=== PATIENT | male | born 1950 | race Caucasian/White ===

== ENCOUNTER 2017-03-05 00:14 | Inpatient (IN) | payer MEDICARE, OTHER ==
[2017-03-05] VITALS (16 sets, daily range): BP systolic 80–125; BP diastolic 41–74; PULSE 78–102; RESP 16–18; TEMP 96.2–99.7; O2SAT 94–100
[~2017-03-05] VITALS: Ht 185.4 cm; Wt 59.4 kg
[~2017-03-05 00:14] MED LIST: ABIL2TAB2 PO; BUPR150CR PO; FE FCAP; NAME10TA PO; OMEP20CA2; TRAZ50TA12 PO; VENL150C39 PO; [UNRECOGNIZED DRUG - CODE] PO
[2017-03-05] MEDS ORDERED: LOPE2CAP PO (01:34)
[2017-03-05] MEDS ORDERED: SODIUM CHLOR 0.9% 1000 ML INJ 1,000 ML IV ONE (02:00)
[2017-03-05] MEDS ORDERED: SODIUM CHLORIDE 0.9% FLUSH 10 ML FLUSH IVF PRN ×2 (02:00→04:45)
[2017-03-05 02:23] LABS: AUTOMATED NEUTROPHIL # 7.8 TH/MM3 (1.8-7.7); BASOPHIL % 0.2 % (0.0-2.0); HEMATOCRIT 36.5 % (39.0-51.0); HEMO FLAGS DIFF FINAL; LYMPH % 9.8 % (9.0-44.0); MEAN CELL VOLUME 89.8 FL (80.0-100.0); MEAN CORPUSCULAR HEMOGLOBIN 29.7 PG (27.0-34.0); MEAN CORPUSCULAR HGB CONC 33.1 % (32.0-36.0); MONO % 10.8 % (0.0-8.0); NEUT % 79.2 % (16.0-70.0); PLATELET COUNT 165 TH/MM3 (150-450); RED BLOOD COUNT 4.07 MIL/MM3 (4.50-5.90); RED CELL DISTRIBUTION WIDTH 13.3 % (11.6-17.2); WHITE BLOOD COUNT 9.9 TH/MM3 (4.0-11.0)
[2017-03-05 02:30] LABS: CHLORIDE 99 MEQ/L (98-107); SODIUM (NA) 138 MEQ/L (136-145)
[2017-03-05 02:34] LABS: ANION GAP 16 MEQ/L (5-15); APTT (PATIENT) 26.9 SEC (24.3-30.1); BICARBONATE 23.5 MEQ/L (21.0-32.0); BLOOD UREA NITROGEN 55 MG/DL (7-18); INTERNATIONAL NORMALIZED RATIO 1.3 RATIO
[2017-03-05 02:37] LABS: ALT (GPT) 82 U/L (12-78); AST (GOT) 128 U/L (15-37); GLOMERULAR FILTRATION RATE 17 ML/MIN (>89)
[2017-03-05 02:38] LABS: TOTAL BILIRUBIN ADULT 0.3 MG/DL (0.2-1.0)
[2017-03-05 02:40] LABS: ALKALINE PHOSPHATASE 114 U/L (45-117)
--- NOTE | 2017-03-05 02:52 | RADHPO ---
EXAM DATE/TIME: 03/05/2017 02:32 [facility] COMPARISON: No previous studies available for comparison. INDICATIONS : Fall. Left hip pain. MEDICAL HISTORY : None. SURGICAL HISTORY : None. ENCOUNTER: Initial ACUITY: 1 day PAIN SCORE: 9/10 LOCATION: Left lateral FINDINGS: There is an intertrochanteric femoral neck fracture. There is a separate fracture fragment at the les ser trochanter. The femoral head is normally positioned at the acetabulum. CONCLUSION: Intertrochanteric left femoral neck fracture. Lexx Baeza MD on March 05, 2017 at 2:49 Board Certified Radiologist. This report was verified electronically.
--- NOTE | 2017-03-05 02:53 | RADHPO ---
EXAM DATE/TIME: 03/05/2017 02:27 [facility] COMPARISON: FEMUR LEFT (AP & LAT/2VWS), March 05, 2017, 2:32. INDICATIONS : Fall. Left hip pain. MEDICAL HISTORY : None. SURGICAL HISTORY : None. ENCOUNTER: Initial ACUITY: 1 day PAIN SCORE: 9/10 LOCATION: Right pelvis FINDINGS: There is a left intertrochanteric femoral neck fracture. There is fracture through the superior aspec t of the greater trochanter and at the base of the lesser trochanter. The femoral head is normally po sitioned at the acetabulum. No other fracture is seen. Vascular calcifications are present. CONCLUSION: Left intertrochanteric femoral neck fracture. Lexx Baeza MD on March 05, 2017 at 2:50 Board Certified Radiologist. This report was verified electronically.
--- NOTE | 2017-03-05 02:55 | RADHPO ---
EXAM DATE/TIME: 03/05/2017 02:31 [facility] COMPARISON: SPINE THORACIC AP/LAT/SW (3VW), March 31, 2015, 20:41. INDICATIONS : Fall. MEDICAL HISTORY : None. SURGICAL HISTORY : None. ENCOUNTER: Initial ACUITY: 1 day PAIN SCORE: 6/10 LOCATION: Bilateral chest FINDINGS: The heart size is normal. There is increased density at the medial right chest and over the medial hi lar region. [place] are seen in this region. This configuration is unchanged for prior thoracic spine series from 03/31/2015. There is increased density in the retrocardiac area at the medial left base. T he lungs are otherwise clear. No effusion is seen. CONCLUSION: 1. Postoperative changes in the right chest which appear stable. 2. Increased density in the medial left base representing either a consolidation or potentially a hia gatito hernia. There are some air lucency in this. Lexx Baeza MD on March 05, 2017 at 2:51 Board Certified Radiologist. This report was verified electronically.
[2017-03-05] MEDS ORDERED: SODIUM CHLORID 0.9% 500 ML INJ 500 ML IV ONE (03:15)
--- NOTE | 2017-03-05 03:25 | RADHPO ---
EXAM DATE/TIME: 03/05/2017 02:56 [facility] COMPARISON: CT BRAIN W/O CONTRAST, March 31, 2015, 21:08. INDICATIONS : Trauma. Fall. RADIATION DOSE: 64.44 CTDIvol (mGy) MEDICAL HISTORY : Carcinoma, esophageal. Carcinoma, gastric. SURGICAL HISTORY : Partial gastrectomy ENCOUNTER: Initial ACUITY: 1 day PAIN SCALE: 0/10 LOCATION: cranial TECHNIQUE: Multiple contiguous axial images were obtained of the head. Using automated exposure control and adj ustment of the mA and/or kV according to patient size, radiation dose was kept as low as reasonably a chievable to obtain optimal diagnostic quality images. FINDINGS: CEREBRUM: The ventricles are normal for age. No evidence of midline shift, mass lesion, hemorrhage or acute in farction. No extra-axial fluid collections are seen. POSTERIOR FOSSA: The cerebellum and brainstem are intact. The 4th ventricle is midline. The cerebellopontine angle i s unremarkable. EXTRACRANIAL: The visualized portion of the orbits is intact. There is opacification of the right maxillary sinus w ith expansion into the nasal cavity likely representing a mucocele or polyposis. This was present pre viously. There is right frontal and right ethmoid sinus disease. SKULL: The calvaria is intact. No evidence of skull fracture. CONCLUSION: 1. No intracranial abnormality is seen. 2. Right sinus disease. Lexx Baeza MD on March 05, 2017 at 3:21 Board Certified Radiologist. This report was verified electronically.
[2017-03-05 03:29] LABS: MAGNESIUM 2.5 MG/DL (1.5-2.5)
--- NOTE | 2017-03-05 03:34 | RADHPO ---
EXAM DATE/TIME: 03/05/2017 02:56 [facility] COMPARISON: CT CERVICAL SPINE W/O CONTRAST, March 31, 2015, 21:08. INDICATIONS : Trauma. Fall. RADIATION DOSE: 26.43 CTDIvol (mGy) MEDICAL HISTORY : Carcinoma, esophageal. Carcinoma, gastric. SURGICAL HISTORY : Partial gastrectomy ENCOUNTER: Initial ACUITY: 1 day PAIN SCALE: 0/10 LOCATION: neck TECHNIQUE: Volumetric scanning of the cervical spine was performed. Multiplanar reconstructions in the sagittal, coronal and oblique axial planes were performed. Using automated exposure control and adjustment o f the mA and/or kV according to patient size, radiation dose was kept as low as reasonably achievable to obtain optimal diagnostic quality images. FINDINGS: VERTEBRAE: Normal vertebral body height. ALIGNMENT: No evidence of subluxation. C2-C3: The bony spinal canal is normal in size. No evidence of disc bulge or herniation. The neural forami na are bilaterally patent. C3-C4: The bony spinal canal is normal in size. No evidence of disc bulge or herniation. The neural forami na are bilaterally patent. There is uncovertebral hypertrophy and mild right facet hypertrophy. C4-C5: The bony spinal canal is normal in size. No evidence of disc bulge or herniation. There is bilateral uncovertebral hypertrophy causing some narrowing of the neural foramina. C5-C6: There is minimal bulging and posterior osteophytic ridging causing mild impression on the thecal sac. The neural foramina are bilaterally patent. There is uncovertebral hypertrophy. C6-C7: The bony spinal canal is normal in size. No evidence of disc bulge or herniation. The neural forami na are bilaterally patent. C7-T1: The bony spinal canal is normal in size. No evidence of disc bulge or herniation. The neural forami na are bilaterally patent. CONCLUSION: Scattered degenerative change as described above. An acute bony abnormality is not seen. Lexx Baeza MD on March 05, 2017 at 3:24 Board Certified Radiologist. This report was verified electronically.
--- NOTE | 2017-03-05 03:55 | RADHPO ---
EXAM DATE/TIME: 03/05/2017 03:28 [facility] COMPARISON: CHEST SINGLE AP, March 05, 2017, 2:31. INDICATIONS : Trauma. Fall. ORAL CONTRAST: No oral contrast ingested. RADIATION DOSE: 6.68 CTDIvol (mGy) MEDICAL HISTORY : Carcinoma, esophageal. Carcinoma, gastric. SURGICAL HISTORY : Partial gastrectomy ENCOUNTER: Initial ACUITY: 1 day PAIN SCALE: 10/10 LOCATION: Left hip TECHNIQUE: Volumetric scanning of the abdomen and pelvis was performed. Using automated exposure control and ad justment of the mA and/or kV according to patient size, radiation dose was kept as low as reasonably achievable to obtain optimal diagnostic quality images. FINDINGS: LOWER LUNGS: The patient is status post distal esophagectomy and gastrectomy. Small bowel seen in the posterior ri ght chest and at the left base accounting for the density seen on the chest x-ray. There is mild scar ring or linear atelectasis seen at the posterior medial left lung base. LIVER: Homogeneous density without lesion. There is no dilation of the biliary tree. The patient is status post cholecystectomy. SPLEEN: Normal size without lesion. PANCREAS: Within normal limits. KIDNEYS: Normal in size and shape. There is no stone, or hydronephrosis. There is a 0.6 cm hyperdense mass at the posterior lateral mid left kidney likely representing a hemorrhagic or proteinaceous cyst. ADRENAL GLANDS: Within normal limits. VASCULAR: There is no aortic aneurysm. Vascular calcifications are seen throughout the arterial system. BOWEL/MESENTERY: The patient is status post gastrectomy. There's a moderate amount of stool seen throughout the colon. ABDOMINAL WALL: Within normal limits. RETROPERITONEUM: There is no lymphadenopathy. BLADDER: No wall thickening or mass. REPRODUCTIVE: Within normal limits. INGUINAL: There is no lymphadenopathy or hernia. MUSCULOSKELETAL: There is a left intertrochanteric femoral neck fracture. There is hemorrhage seen in the soft tissues of the upper thigh around the fracture. CONCLUSION: 1. Left intertrochanteric femoral neck fracture. 2. Post operative changed from distal esophagectomy and gastrectomy. Lexx Baeza MD on March 05, 2017 at 3:48 Board Certified Radiologist. This report was verified electronically.
--- NOTE | 2017-03-05 04:23 | PD ---
HPI Chief Complaint: Fall Time Seen by Provider: 01:54 Travel History International Travel<30 days: No Contact w/Intl Traveler<30days: No Traveled to known affect area: No History of Present Illness HPI 67-year-old male presents to the emergency department by nonemergent transport from his correction with a correction staff member for evaluation of hip pain. Patient reportedly around 10 PM was requesting a wheelchair and reportedly there was not a wheelchair available and the patient was reportedly witnessed to have an acting out spell throwing himself on the floor. This was reportedly was a witnessed event. Patient complained of hip pain afterwards. Due to his persistent complaint of pain was determined to bring him to the emergency room. Patient did hit his head, he did not have loss of consciousness, he did not injure his neck, he did not injure his back chest abdomen or upper extremities. Patient did not injure his right lower extremity. Patient complains of hip pain. After the patient fell onto the floor. The correction staff members put him into a wheelchair at that time. Patient had a bowel movement so they took him to the shower and while he was at the shower he had a witnessed syncopal episode on the floor without injury. Patient spontaneously regained consciousness reportedly. Patient was base and then put back in a wheelchair. Because of hip pain was brought to the emergency room. Patient's had no further syncope or near syncope however noted upon arrival to have low normal pressure and on recheck was hypotensive. PFSH Past Medical History Narrative Medical Anxiety depression esophageal cancer with partial esophagectomy gastrectomy dementia (; no tobacco use no alcohol use no substance use; nursing notes reviewed Anxiety: Yes Depression: Yes Cancer: Yes (esophageal and gastric) Dementia: Yes Tetanus Vaccination: < 5 Years Influenza Vaccination: Yes Past Surgical History Abdominal Surgery: Yes Other Surgery: Yes (partial gastrectomy) Social History Alcohol Use: No Tobacco Use: No Substance Use: No Allergies-Medications (Allergen,Severity, Reaction): Coded Allergies: Compazine (Unverified Allergy, Unknown, 03/05/17) Penicillin (Unverified Allergy, Unknown, 03/05/17) Sulfa (Unverified Allergy, Unknown, 03/05/17) Reported Meds & Prescriptions Reported Meds & Active Scripts Active Abilify (Aripiprazole) 2 Mg Tab 2 Mg PO DAILY@0600 Wellbutrin SR 12 HR (Bupropion HCl) 150 Mg Tab 150 Mg PO 1QAM,1Q4PM Trazodone (Trazodone HCl) 50 Mg Tab 50 Mg PO HS Namenda (Memantine) 10 Mg Tab 10 Mg PO BID Venlafaxine ER 24 HR (Venlafaxine HCl) 150 Mg Cap 150 Mg PO HS Reported Loperamide (Loperamide HCl) 2 Mg Cap 2 Mg PO DIRECTED PRN One capsule after each loose stool. Not to exceed 8 capsules per day. Integra (Multi-Vit/Iron-B Comp-Vit C) Unknown Strength Cap Unknown Dose Review of Systems Except as stated in HPI: all other systems reviewed are Neg General / Constitutional: No: Fever HENT: No: Congestion, Neck Pain Cardiovascular: No: Chest Pain or Discomfort Respiratory: No: Shortness of Breath Gastrointestinal: No: Abdominal Pain Genitourinary: No: Flank Pain Musculoskeletal: Positive: Pain (hip) Skin: Positive Rash (chronic) Neurologic: Positive: Syncope, No: Weakness, Dizziness, Focal Abnormalities, Coordination Problem, Headache, Change in Mentation, Slurred Speech, Paresthesia , Seizures Psychiatric: No: Anxiety Endocrine: No: Heat Intolerance Hematologic/Lymphatic: No: Easy Bruising Physical Exam Narrative GENERAL: Well-developed thin disheveled male in no acute distress no respiratory distress; GCS 14 ('normal' baseline per caregiver-Chrales Cano- at bedside) thinking. SKIN: Warm and dry. HEAD: Atraumatic. Normocephalic except for posterior scalp abrasion no laceration no soft tissue swelling no bony abnormalities. EYES: Pupils equal and round. No scleral icterus. No injection or drainage. ENT: No nasal bleeding or discharge. Mucous membranes pink and moist. NECK: Trachea midline. No JVD. No midline tenderness to direct palpation no bony step-off. CARDIOVASCULAR: Regular rate and rhythm. RESPIRATORY: No accessory muscle use. Clear to auscultation. Breath sounds equal bilaterally. GASTROINTESTINAL: Abdomen soft, non-tender, nondistended. Hepatic and splenic margins not palpable. MUSCULOSKELETAL: Extremities without clubbing, cyanosis, or edema. Left lower extremity shortened and internally rotated with left hip deformity; bilateral dorsalis pedis pulses 2+ to palpation. NEUROLOGICAL: Awake and alert. No obvious cranial nerve deficits. Motor grossly within normal limits. Five out of 5 muscle strength in the arms and legs. Normal speech. Data Data Last Documented VS Vital Signs Date Time Temp Pulse Resp B/P Pulse Ox O2 Delivery O2 Flow Rate FiO2 03/05/17 04:25 80 18 118/74 99 Room Air 03/05/17 01:40 99.3 Orders Electrocardiogram (03/05/17 01:54) Complete Blood Count With Diff (03/05/17 01:54) Comprehensive Metabolic Panel (03/05/17 01:54) Prothrombin Time / Inr (Pt) (03/05/17 01:54) Act Partial Throm Time (Ptt) (03/05/17 01:54) Urinalysis - C+S If Indicated (03/05/17 01:54) Type And Screen (03/05/17 01:54) Chest, Single Ap (03/05/17 01:54) Femur (Ap & Lat/2vws) (03/05/17 01:54) Iv Access Insert/Monitor (03/05/17 01:54) Oximetry (03/05/17 01:54) Ecg Monitoring (03/05/17 01:54) Sodium Chloride 0.9% Flush (Ns Flush) (03/05/17 02:00) Sodium Chlor 0.9% 1000 Ml Inj (Ns 1000 M (03/05/17 02:00) Ct Brain W/O Iv Contrast(Rout) (03/05/17 ) Ct Cerv Spine W/O Contrast (03/05/17 ) Pelvis, Ap Only (Routine) (03/05/17 01:54) Sodium Chlorid 0.9% 500 Ml Inj (Ns 500 M (03/05/17 03:15) Lactic Acid (03/05/17 03:12) Ct Abd/Pel W/O Iv Contrast (03/05/17 ) Magnesium (Mg) (03/05/17 02:00) Admit Order (Ed Use Only) (03/05/17 ) ^ Saline Lock (03/05/17 04:37) Resp Oxygen Rayray C Titrat 1-4 L (03/05/17 ) Notify Dr: Other (03/05/17 04:37) Sodium Chloride 0.9% Flush (Ns Flush) (03/05/17 09:00) Sodium Chloride 0.9% Flush (Ns Flush) (03/05/17 04:45) Consult Orthopedic (03/05/17 04:37) Labs Laboratory Tests Test 03/05/17 03/05/17 02:00 04:15 White Blood Count 9.9 TH/MM3 Red Blood Count 4.07 MIL/MM3 Hemoglobin 12.1 GM/DL Hematocrit 36.5 % Mean Corpuscular Volume 89.8 FL Mean Corpuscular Hemoglobin 29.7 PG Mean Corpuscular Hemoglobin 33.1 % Concent Red Cell Distribution Width 13.3 % Platelet Count 165 TH/MM3 Mean Platelet Volume 7.8 FL Neutrophils (%) (Auto) 79.2 % Lymphocytes (%) (Auto) 9.8 % Monocytes (%) (Auto) 10.8 % Eosinophils (%) (Auto) 0.0 % Basophils (%) (Auto) 0.2 % Neutrophils # (Auto) 7.8 TH/MM3 Lymphocytes # (Auto) 1.0 TH/MM3 Monocytes # (Auto) 1.1 TH/MM3 Eosinophils # (Auto) 0.0 TH/MM3 Basophils # (Auto) 0.0 TH/MM3 CBC Comment DIFF FINAL Differential Comment Prothrombin Time 15.0 SEC Prothromb Time International 1.3 RATIO Ratio Activated Partial 26.9 SEC Thromboplast Time Sodium Level 138 MEQ/L Potassium Level 5.0 MEQ/L Chloride Level 99 MEQ/L Carbon Dioxide Level 23.5 MEQ/L Anion Gap 16 MEQ/L Blood Urea Nitrogen 55 MG/DL Creatinine 3.70 MG/DL Estimat Glomerular Filtration 17 ML/MIN Rate Random Glucose 147 MG/DL Calcium Level 8.6 MG/DL Magnesium Level 2.5 MG/DL Total Bilirubin 0.3 MG/DL Aspartate Amino Transf 128 U/L (AST/SGOT) Alanine Aminotransferase 82 U/L (ALT/SGPT) Alkaline Phosphatase 114 U/L Total Protein 7.6 GM/DL Albumin 3.3 GM/DL Blood Type O POSITIVE Antibody Screen NEGATIVE Blood Bank Comment Lactic Acid Level 1.5 mmol/L MDM Medical Decision Making Medical Screen Exam Complete: Yes Emergency Medical Condition: Yes Medical Record Reviewed: Yes Interpretation(s) CBC & BMP Diagram 03/05/17 02:00 EKG normal sinus rhythm rate [address] elevation or injury pattern change noted Differential Diagnosis Hip pain, hip fracture, dislocation, anemia, pelvic fracture, syncope, arrhythmia, ICH, CHI, abrasion Narrative Course Patient placed on monitor IV access obtained specimens were collected; patient was noted to be hypotensive therefore IV fluids administered; imaging studies ordered CT brain noncontrast reveals no acute intra-cranial abnormality no skull fracture or cervical spine shows chronic changes but no fracture chest x-ray there was evidence of previous esophageal and gastric surgery but no acute abnormalities pelvis and left hip x-ray reveals an intertrochanteric fracture of the left hip. CT abdomen and pelvis performed without contrast due to renal function reveals no acute intra-abdominal or pelvic abnormality again intertrochanteric fracture is identified and local area of hemorrhage also noted. Patient's case discussed with on-call orthopedist Dr. Saini requests patient to be transferred to [facility] admitted to have his group: Patient's case discussed with Dr. Lara accepted patient for admission Physician Communication Physician Communication Discussed with Dr Saini admit to [facility] service Diagnosis Primary Impression: Closed intertrochanteric fracture of hip Qualified Code: S72.142A - Closed intertrochanteric fracture of hip, left, initial encounter Additional Impressions: Renal insufficiency Dementia Qualified Code: F03.91 - Dementia with behavioral disturbance, unspecified dementia type Admitting Information Admitting Physician Requests: Admit Shruthi Valdes MD Mar 05, 2017 04:22
[2017-03-05] MEDS ORDERED: SODIUM CHLOR 0.9% 1000 ML INJ 1,000 ML IV SCH (04:37)
[2017-03-05] MEDS ORDERED: BISACODYL 10 MG SUPP RECTAL PRN (04:45)
[2017-03-05] MEDS ORDERED: ACETAMINOPHEN/HYDROcodone 325 MG/5 MG TAB PO PRN (04:45)
[2017-03-05] MEDS ORDERED: MORPHINE SULFATE 4 MG/ML INJ IV PRN (04:45)
[2017-03-05] MEDS ORDERED: ONDANSETRON HCL 4 MG/2 ML VIAL IVP PRN ×2 (04:45→11:15)
[2017-03-05] MEDS ORDERED: ACETAMINOPHEN 325 MG TAB PO PRN (04:45)
[2017-03-05] MEDS ORDERED: SODIUM CHLORIDE 0.9% FLUSH 10 ML FLUSH IV FLUSH PRN ×2 (04:45→11:15)
[2017-03-05 05:03] LABS: BLOOD, URINE LARGE (NEG); GLUCOSE,URINE NEG (NEG); KETONE, URINE NEG (NEG); NITRITE,URINE NEG (NEG); PH, URINE 5.5 (5.0-8.5)
[2017-03-05 05:09] LABS: COMMENT (UR) CATH-CULT NOT IND; CULTURE IF INDICATED CATH CULTURE NOT IND; SQUAMOUS EPITHELIAL CELL URINE 0-5 /hpf (0-5); URINE COLOR YELLOW (YELLW/STRAW); WBC, URINE 0-2 /hpf (0-5)
[2017-03-05] MEDS: ARIPiprazole 2 MG TAB PO SCH (05:20)
[2017-03-05] MEDS: MEMANTINE HCL 10 MG TAB PO SCH ×2 (08:58→20:14)
[2017-03-05] MEDS: buPROPion HCL 150 MG SUSTAINED RELEASE TAB PO SCH ×2 (08:58→17:03)
[2017-03-05] MEDS ORDERED: SODIUM CHLORIDE 0.9% FLUSH 10 ML FLUSH IV FLUSH SCH ×2 (09:00)
[2017-03-05] MEDS ORDERED: buPROPion HCL 150 MG SUSTAINED RELEASE TAB PO SCH (09:00)
[2017-03-05] MEDS ORDERED: FAMOTIDINE 20 MG/2 ML VIAL ONE (09:30)
--- NOTE | 2017-03-05 09:37 | MB ---
cc: DOUGIE FARIAS M.D. DATE OF CONSULTATION: 03/05/2017 REASON FOR CONSULTATION: Left intertrochanteric hip fracture. HISTORY The patient is a 67-year-old male who presents to [facility] Emergency Room after a fall in a care home. The patient developed severe onset of left hip pain after this fall. He was unable to stand or ambulate. He was brought to the emergency room and x-rays confirmed evidence of a displaced left intertrochanteric hip fracture. He denies hitting his head, denies loss of consciousness or other significant complaints. The patient is constant, severe throbbing. The patient is admitted to the medical service. Orthopedic surgery has been consulted for further evaluation and management of the injury and condition. PAST MEDICAL HISTORY: Positive for anxiety, depression. Esophageal cancer with partial esophajectomy. Gastrectomy. SOCIAL HISTORY No tobacco, alcohol or substance abuse. ALLERGIES COMPAZINE, PENICILLIN, SULFA MEDICATIONS Include: 1. Abilify. 2. Wellbutrin. 3. Trazodone. 4. Namenda 5. Venlafaxine. 6. Loperamide. REVIEW OF SYSTEMS: Negative for ten systems other than in the HPI. PHYSICAL EXAMINATION: The patient is a well-developed male lying in bed, in mild distress related to his left hip. He is awake, alert. SKIN: Warm and dry. HEENT: Normocephalic, atraumatic. Pupils are round. No scleral icterus. NECK: Supple. LUNGS: Clear. HEART: Regular rate and rhythm. ABDOMEN: Soft, nontender. His left thigh is swollen and ecchymotic. He has ____ motion of the left thigh region. He flexes his ankles and toes. Brisk cap refill sensation intact distally. VITAL SIGNS: Temperature 99, pulse of 80, respiratory rate 18, blood pressure 118/74. LABORATORY DATA: White blood cell count is 9, hemoglobin 12, hematocrit 36, platelet 165, BUN 55, creatinine 3.7, glucose 147. IMPRESSION 67-year old male status post fall, left displaced intertrochanteric hip fracture. He does have kidney disease with a creatinine of 3.7. He has elevated glucose. Of note, CT scan of the head shows no intracranial abnormality. Discussed the diagnosis with the patient and the treatment options, options of nonoperative versus surgery. Surgery consists of open reduction, internal fixation. The risks of surgery were discussed which include but not limited to anesthesia, bleeding, infection, damage to nerves, blood vessels, pain, stiffness, failure of hardware, nonunion, malunion, blood clots, even . The patient has asked appropriate questions to have an answer. He is in favor of proceeding with surgery. He does wish to have his left hip fracture repaired surgically. Written consent has been obtained. Surgical site has been marked. I did speak with the patient's POA by telephone and explained the diagnosis, treatment options, risks, benefits. POA did conscent for surgery. MD LUIS Long/[place] /8:35 AM /9:23 AM MTDD
[2017-03-05] MEDS ORDERED: ACETAMINOPHEN 1000 MG/100 ML VIAL IV ONE (09:49)
[2017-03-05] MEDS ORDERED: VANCOMYCIN HCL 1000 MG VIAL ONE (09:51)
[2017-03-05] MEDS ORDERED: CLINDAMYCIN PHOS 900 MG/6 ML VIAL ONE (09:51)
[2017-03-05] MEDS ORDERED: GENTAMICIN SULFATE 80 MG/2 ML VIAL ONE (09:52)
[2017-03-05] MEDS ORDERED: RESP: ALBUTEROL 2.5 MG/IPRATROPIUM 0.5 MG NEB (PRN) NEB (10:45)
[2017-03-05] MEDS ORDERED: ENALAPRILAT 1.25 MG/ML VIAL IV PUSH PRN (10:45)
--- NOTE | 2017-03-05 10:46 | HHI.HP ---
[facility]Staff Admission Diagnosis L hip fracture; renal insufficiency; syncope Diagnoses: (1) Closed fracture of intertrochanteric section of femur (2) Closed intertrochanteric fracture of hip (3) CKD (chronic kidney disease) stage 4, GFR 15-29 ml/min (4) Dementia (5) Anxiety and depression Chief Complaint: hip pain Travel History International Travel<30 Days: No Contact w/Intl Traveler <30 Da: No Traveled to Known Affected Are: No History of Present Illness 67yrs old man with a PMH of Dementia, Anxiety/Depression and a resident of a Local retirement was brought to the ED for evaluation of hip pain s/p mechanical fall which happened around 10PM last night when patient became upset with the staff as a wheelchair that was requested and was not available at the time; patient threw himself on the floor. Pelvic and femur x-ray revealed finding of Intertrochanteric left femoral neck fracture for which Orthopedic surgery was consulted and patient taken to the OR today and underwent open reduction internal fixation. Patient was seen in PACU, where he was stable Review of Systems Other 12 systems reviewed and are negative except for the one mentioned in history of present illness Past Family Social History Past Medical History esophageal cancer with partial esophagectomy gastrectomy Anxiety: Yes Depression: Yes Dementia: Past Surgical History partial gastrectomy Reported Medications Abilify (Aripiprazole) 2 Mg Tab 2 Mg PO DAILY@0600 Wellbutrin SR 12 HR (Bupropion HCl) 150 Mg Tab 150 Mg PO 1QAM,1Q4PM Trazodone (Trazodone HCl) 50 Mg Tab 50 Mg PO HS Namenda (Memantine) 10 Mg Tab 10 Mg PO BID Venlafaxine ER 24 HR (Venlafaxine HCl) 150 Mg Cap 150 Mg PO HS Reported Loperamide (Loperamide HCl) 2 Mg Cap 2 Mg PO DIRECTED PRN One capsule after each loose stool. Not to exceed 8 capsules per day. Integra (Multi-Vit/Iron-B Comp-Vit C) Unknown Strength Cap Unknown Dose Allergies: Coded Allergies: Compazine (Unverified Allergy, Unknown, 4/9/17) Penicillin (Unverified Allergy, Unknown, 03/05/17) Sulfa (Unverified Allergy, Unknown, 03/05/17) Social History Alcohol Use: No Tobacco Use: No Substance Use: No Physical Exam Vital Signs Vital Signs Date Time Temp Pulse Resp B/P Pulse Ox O2 Delivery O2 Flow Rate FiO2 03/05/17 09:25 99.7 99 03/05/17 07:43 99.7 84 17 109/71 95 03/05/17 06:59 18 03/05/17 06:58 87 18 96/62 98 Room Air 03/05/17 06:25 85 18 105/68 97 Room Air 03/05/17 05:03 98 21 03/05/17 05:03 82 18 121/71 98 Room Air 03/05/17 04:43 87 17 106/41 98 Room Air 03/05/17 04:25 80 18 118/74 99 Room Air 03/05/17 04:00 84 17 105/74 99 Room Air 03/05/17 03:18 84 16 92/64 Room Air 03/05/17 03:00 85 17 92/64 94 Room Air 03/05/17 01:40 99.3 89 18 86/58 97 Room Air 03/05/17 01:21 Room Air 03/05/17 01:00 99.6 89 18 103/66 98 03/05/17 00:20 98.7 102 18 80/60 99 Physical Exam GENERAL: This is a well-nourished, well-developed patient, in no apparent distress. SKIN: No rashes, ecchymoses or lesions. Cool and dry. HEAD: Atraumatic. Normocephalic. No temporal or scalp tenderness. EYES: Pupils equal round and reactive. Extraocular motions intact. No scleral icterus. No injection or drainage. ENT: Nose without bleeding, purulent drainage or septal hematoma. Throat without erythema, tonsillar hypertrophy or exudate. Uvula midline. Airway patent. NECK: Trachea midline. No JVD or lymphadenopathy. Supple, nontender, no meningeal signs. CARDIOVASCULAR: Regular rate and rhythm without murmurs, gallops, or rubs. RESPIRATORY: Clear to auscultation. Breath sounds equal bilaterally. No wheezes , rales, or rhonchi. GASTROINTESTINAL: Abdomen soft, non-tender, nondistended. No hepato-splenomegaly , or palpable masses. No guarding. MUSCULOSKELETAL: Extremities without clubbing, cyanosis, or edema. No joint tenderness, effusion, or edema noted. No calf tenderness. Negative Homans sign bilaterally. NEUROLOGICAL: Awake and alert. Cranial nerves II through XII intact. Motor and sensory grossly within normal limits. Five out of 5 muscle strength in all muscle groups. Normal speech. Laboratory Laboratory Tests Test 03/05/17 03/05/17 03/05/17 02:00 04:15 05:00 White Blood Count 9.9 Red Blood Count 4.07 Hemoglobin 12.1 Hematocrit 36.5 Mean Corpuscular Volume 89.8 Mean Corpuscular Hemoglobin 29.7 Mean Corpuscular Hemoglobin 33.1 Concent Red Cell Distribution Width 13.3 Platelet Count 165 Mean Platelet Volume 7.8 Neutrophils (%) (Auto) 79.2 Lymphocytes (%) (Auto) 9.8 Monocytes (%) (Auto) 10.8 Eosinophils (%) (Auto) 0.0 Basophils (%) (Auto) 0.2 Neutrophils # (Auto) 7.8 Lymphocytes # (Auto) 1.0 Monocytes # (Auto) 1.1 Eosinophils # (Auto) 0.0 Basophils # (Auto) 0.0 CBC Comment DIFF FINAL Differential Comment Prothrombin Time 15.0 Prothromb Time International 1.3 Ratio Activated Partial 26.9 Thromboplast Time Sodium Level 138 Potassium Level 5.0 Chloride Level 99 Carbon Dioxide Level 23.5 Anion Gap 16 Blood Urea Nitrogen 55 Creatinine 3.70 Estimat Glomerular Filtration 17 Rate Random Glucose 147 Calcium Level 8.6 Magnesium Level 2.5 Total Bilirubin 0.3 Aspartate Amino Transf 128 (AST/SGOT) Alanine Aminotransferase 82 (ALT/SGPT) Alkaline Phosphatase 114 Total Protein 7.6 Albumin 3.3 Blood Type O POSITIVE Antibody Screen NEGATIVE Blood Bank Comment Lactic Acid Level 1.5 Urine Color YELLOW Urine Turbidity SLIGHT Urine pH 5.5 Urine Specific [place] 1.021 Urine Protein 30 Urine Glucose (UA) NEG Urine Ketones NEG Urine Occult Blood LARGE Urine Nitrite NEG Urine Bilirubin NEG Urine Leukocyte Esterase NEG Urine RBC 4-9 Urine WBC 0-2 Urine Squamous Epithelial 0-5 Cells Urine Amorphous Sediment FEW Urine Bacteria NONE Microscopic Urinalysis Comment CATH-CULT NOT IND Result Diagram: 03/05/17 02003/05/17 0200 Imaging Last Impressions Pelvis X-Ray 4/9/17 0154 Signed Impressions: Service Date/Time: Sunday, March 05, 2017 02:27 - CONCLUSION: Left intertrochanteric femoral neck fracture. Lexx Baeza MD Femur X-Ray 03/05/174 Signed Impressions: Service Date/Time: Sunday, March 05, 2017 02:32 - CONCLUSION: Intertrochanteric left femoral neck fracture. Lexx Baeza MD Chest X-Ray 03/05/17153 Signed Impressions: Service Date/Time: Sunday, March 05, 2017 02:31 - CONCLUSION: 1. Postoperative changes in the right chest which appear stable. 2. Increased density in the medial left base representing either a consolidation or potentially a hiatal hernia. There are some air lucency in this. Lexx Baeza MD Head CT 03/05/17 0000 Signed Impressions: Service Date/Time: Sunday, March 05, 2017 02:56 - CONCLUSION: 1. No intracranial abnormality is seen. 2. Right sinus disease. Lexx Baeza MD Cervical Spine CT 03/05/17 Signed Impressions: Service Date/Time: Sunday, March 05, 2017 02:56 - CONCLUSION: Scattered degenerative change as described above. An acute bony abnormality is not seen. Lexx Baeza MD Abdomen/Pelvis CT 03/05/17 0000 Signed Impressions: Service Date/Time: Sunday, March 05, 2017 03:28 - CONCLUSION: 1. Left intertrochanteric femoral neck fracture. 2. Post operative changed from distal esophagectomy and gastrectomy. Lexx Beaza MD Assessment and Plan Problem List: (1) Closed intertrochanteric fracture of hip ICD Code: S72.143A Status: Acute (2) Dementia ICD Code: F03.90 Status: Acute (3) CKD (chronic kidney disease) stage 4, GFR 15-29 ml/min ICD Code: N18.4 Status: Acute Assessment and Plan 67-year-old man with Closed intertrochanteric fracture of the left hip: Pelvic and femur x-ray noted and reviewed by me with finding of Intertrochanteric left femoral neck fracture ; consult orthopedic surgery for evaluation for open reduction internal fixation. PT consult post procedure.Pain Management accordingly with when necessary analgesic/morphine Chronic kidney disease stage IV: Check renal ultrasound and consult nephrology. Continue with gentle IV fluid hydrations and monitor BUN and creatinine. Avoid all nephrotoxic drugs. Dementia: Resume Namenda Anxiety/depression: Resume outpatient medications DVT prophylaxis: Postprocedure per orthopedic surgery Code Status Full code Physician Certification 2 Midnight Certification Type: Admission for Inpatient Services Order for Inpatient Services The services are ordered in accordance with Medicare regulations or non- Medicare payer requirements, as applicable. In the case of services not specified as inpatient-only, they are appropriately provided as inpatient services in accordance with the 2-midnight benchmark. Estimated LOS (days): 2 days is the estimated time the patient will need to remain in the hospital, assuming treatment plan goals are met and no additional complications. Post-Hospital Plan: Not yet determined Problem Qualifiers (1) Closed intertrochanteric fracture of hip: Qualified Code: S72.142A - Closed intertrochanteric fracture of hip, left, initial encounter (2) Dementia: Qualified Code: F03.91 - Dementia with behavioral disturbance, unspecified dementia type Michel Gould MD Mar 05, 2017 10:46
[2017-03-05] MEDS ORDERED: CHLORHEXIDINE GLUCONATE 2 % 1 PACK (2 CLOTHS) TOPICAL PRN (11:00)
[2017-03-05] MEDS ORDERED: INSULIN HUMAN REGULAR 1,000 UNITS/10 ML VIAL SQ PRN (11:00)
[2017-03-05] MEDS ORDERED: LACTATED RINGER'S 1000 ML IV PRN (11:00)
[2017-03-05] MEDS ORDERED: POVIDONE IODINE 5% (ANTISEPSIS KIT) 4 APPLICATIONS EACH NARE PRN (11:00)
[2017-03-05] MEDS ORDERED: SODIUM CHLORID 0.9% 500 ML IV PRN (11:00)
[2017-03-05] MEDS ORDERED: METOPROLOL TARTRATE 25 MG TAB PO PRN (11:00)
[2017-03-05] MEDS ORDERED: HYDR-3288 PO (11:12)
[2017-03-05] MEDS ORDERED: ASPI81CH37 CHEW (11:12)
[2017-03-05] MEDS ORDERED: ACETAMINOPHEN/HYDROcodone 325 MG/7.5 MG TAB PO PRN (11:15)
[2017-03-05] MEDS ORDERED: NALOXONE HCL 0.4 MG/ML AMP IV PRN (11:15)
[2017-03-05] MEDS ORDERED: diphenhydrAMINE HCL 25 MG CAP PO PRN (11:15)
[2017-03-05] MEDS ORDERED: MORPHINE SULFATE 4 MG/ML INJ IV PUSH PRN (11:15)
[2017-03-05] MEDS ORDERED: Post-op Orders (for Pharmacy) MISC XX ONE (11:26)
--- NOTE | 2017-03-05 11:42 | RADRPT ---
EXAM DATE/TIME: 03/05/2017 10:59 [facility] COMPARISON: FEMUR LEFT (AP & LAT/2VWS), March 05, 2017, 2:32. INDICATIONS : Left hip pain. MEDICAL HISTORY : None. SURGICAL HISTORY : None. ENCOUNTER: Initial ACUITY: 1 day PAIN SCORE: Non-responsive. LOCATION: Left hip FINDINGS: 2 fluoroscopic views of the postoperative left hip demonstrate placement of intramedullary marina and sc rew through the intertrochanteric fracture with good anatomic alignment. CONCLUSION: Status post ORIF of a left intratrochanteric fracture with good anatomic alignment. Yasmin Silveira MD on March 05, 2017 at 11:40 Board Certified Radiologist. This report was verified electronically.
[2017-03-05] MEDS ORDERED: DO NOT ADM ANY ANTICOAGULANT DRUGS PRN (11:45)
[2017-03-05] MEDS ORDERED: fentaNYL CITRATE 250 MCG/5 ML AMP ONE (11:48)
[2017-03-05] MEDS ORDERED: LACTATED RINGER'S 1000 ML INJ 1,000 ML IV ONE (12:00)
[2017-03-05] MEDS ORDERED: NEOSTIGMINE 3 MG/3 ML SYR IV ONE (12:00)
[2017-03-05] MEDS ORDERED: PROPOFOL 200 MG/20 ML AMP IV ONE (12:00)
[2017-03-05] MEDS ORDERED: ePHEDrine/NS 25 MG/5 ML SYR IV ONE (12:00)
[2017-03-05] MEDS: DEXT 5%-NACL 0.45% 1000 ML INJ 1,000 ML IV SCH (12:00)
[2017-03-05] MEDS ORDERED: SODIUM CHLOR 0.9% 250 ML INJ 250 ML IV ONE (12:00)
[2017-03-05] MEDS ORDERED: PHENYLEPH/NS 1000 MCG/10 ML SYR IV ONE (12:00)
[2017-03-05] MEDS ORDERED: ONDANSETRON HCL 4 MG/2 ML VIAL IV PUSH ONE (12:00)
[2017-03-05] MEDS: CLINDAMYCIN INJ 900 MG in SODIUM CHLORIDE 0.9% INJ 100 ML IV SCH (17:27)
[2017-03-05] MEDS: VENLAFAXINE HCL XR 75 MG CAP PO SCH (20:14)
[2017-03-05] MEDS: traZODone HCL 50 MG TAB PO SCH (20:14)
[2017-03-05] MEDS: DOCUSATE SODIUM 50 MG/SENNA 8.6 MG TAB PO SCH (20:14)
[2017-03-05] MEDS: SODIUM CHLORIDE 0.9% FLUSH 10 ML FLUSH IV FLUSH SCH (20:15)
[2017-03-05] MEDS: ACETAMINOPHEN/HYDROcodone 325 MG/7.5 MG TAB PO PRN (20:19)
--- NOTE | 2017-03-05 22:20 | RADRPT ---
EXAM DATE/TIME: 03/05/2017 21:32 [facility] COMPARISON: No previous studies available for comparison. EXTERNAL COMPARISON : [facility], CT ABDOMEN & PELVIS W CONTRAST, December 22, 2015[facility], CT ABDOMEN & PELVIS W CONTRAST, December 01, 2014. INDICATIONS : Increased BUN/Creatinine. MEDICAL HISTORY : Dementia. Gastric and esophageal cancer. SURGICAL HISTORY : Partial gastrectomy. ENCOUNTER: Initial ACUITY: 1 day PAIN SCORE: 3/10 LOCATION: Bilateral flank MEASUREMENTS: RIGHT KIDNEY: 8.8 x 3.6 x 3.6 cm LEFT KIDNEY: 8.7 x 4.2 x 4.7 cm FINDINGS: RIGHT KIDNEY: Renal cortex is normal in thickness and echotexture. No hydronephrosis, stone, or mass. LEFT KIDNEY: Renal cortex is normal in thickness and echotexture. No hydronephrosis, stone, or mass. BLADDER: Within normal limits given the degree of distension. CONCLUSION: Normal examination. Antonio Santos MD on March 05, 2017 at 22:18 Board Certified Radiologist. This report was verified electronically.
[2017-03-06] VITALS (7 sets, daily range): BP systolic 107–121; BP diastolic 70–80; PULSE 88–100; RESP 16–17; TEMP 97.7–99.1; O2SAT 94–100
[2017-03-06] MEDS: CLINDAMYCIN INJ 900 MG in SODIUM CHLORIDE 0.9% INJ 100 ML IV SCH ×2 (00:54→08:31)
[2017-03-06] MEDS: DEXT 5%-NACL 0.45% 1000 ML INJ 1,000 ML IV SCH ×3 (00:55→16:26)
[2017-03-06] MEDS: ARIPiprazole 2 MG TAB PO SCH (04:35)
[2017-03-06 06:50] LABS: ALT (GPT) 71 U/L (12-78); ANION GAP 10 MEQ/L (5-15); AST (GOT) 137 U/L (15-37); BICARBONATE 24.4 MEQ/L (21.0-32.0); CHLORIDE 104 MEQ/L (98-107); GLOMERULAR FILTRATION RATE 32 ML/MIN (>89); POTASSIUM 4.4 MEQ/L (3.5-5.1); SODIUM (NA) 138 MEQ/L (136-145)
[2017-03-06 06:52] LABS: ALKALINE PHOSPHATASE 77 U/L (45-117); TOTAL BILIRUBIN ADULT 0.3 MG/DL (0.2-1.0)
[2017-03-06 07:06] LABS: BLOOD UREA NITROGEN 36 MG/DL (7-18)
[2017-03-06 07:34] LABS: HEMATOCRIT 27.4 % (39.0-51.0); MEAN CELL VOLUME 88.8 FL (80.0-100.0); MEAN CORPUSCULAR HEMOGLOBIN 30.5 PG (27.0-34.0); MEAN CORPUSCULAR HGB CONC 34.3 % (32.0-36.0); PLATELET COUNT 93 TH/MM3 (150-450); RED BLOOD COUNT 3.09 MIL/MM3 (4.50-5.90); RED CELL DISTRIBUTION WIDTH 14.1 % (11.6-17.2); WHITE BLOOD COUNT 5.6 TH/MM3 (4.0-11.0)
[2017-03-06 07:57] LABS: HEMO FLAGS AUTO DIFF
[2017-03-06 08:00] LABS: BANDS 19 % (0-6); NEUTROPHIL # MANUAL DIFF 4.5 TH/MM3 (1.8-7.7); PLATELET ESTIMATE SMEAR LOW (NORMAL); PLATELET MORPHOLOGY NORMAL (NORMAL); POLYS (SEG NEUTROPHILS) 61 % (16-70); SCAN/DIFF FINAL DIFF MANUAL; WBC DIFF SAMPLE 100
[2017-03-06] MEDS: MULTIVITAMINS/MINERALS THERAPEUTIC TAB PO SCH (08:29)
[2017-03-06] MEDS: DOCUSATE SODIUM 50 MG/SENNA 8.6 MG TAB PO SCH ×2 (08:29→21:22)
[2017-03-06] MEDS: MEMANTINE HCL 10 MG TAB PO SCH ×2 (08:29→21:22)
[2017-03-06] MEDS: buPROPion HCL 150 MG SUSTAINED RELEASE TAB PO SCH ×2 (08:30→16:17)
[2017-03-06] MEDS: ACETAMINOPHEN/HYDROcodone 325 MG/7.5 MG TAB PO PRN ×2 (08:31→21:22)
[2017-03-06] MEDS: SODIUM CHLORIDE 0.9% FLUSH 10 ML FLUSH IV FLUSH SCH ×2 (08:32→21:00)
[2017-03-06] MEDS: ENOXAPARIN SODIUM 30 MG/0.3 ML SYRINGE SQ SCH (10:37)
--- NOTE | 2017-03-06 12:36 | HHI.PR ---
Subjective Remarks F-u left hip fx s/p repair 03/06/17-patient seen and examined; no acute event overnight. Pain to the left hip stable Objective Vitals Vital Signs Date Time Temp Pulse Resp B/P Pulse Ox O2 Delivery O2 Flow Rate FiO2 03/06/17 09:59 94 Nasal Cannula 2.00 03/06/17 09:31 18 03/06/17 07:07 98.6 94 16 115/71 100 03/06/17 00:00 98.7 88 17 118/70 100 03/05/17 20:43 100 Nasal Cannula 2.00 03/05/17 20:00 98.7 92 17 125/74 100 03/05/17 16:00 97.3 78 16 92/60 100 I/O 03/05/17 03/05/17 03/05/17 03/06/17 03/06/17 03/06/17 07:00 15:00 23:00 07:00 15:00 23:00 Intake Total 1500 ml 1990 ml 764 ml 876 ml Output Total 400 ml 1225 ml 425 ml 650 ml Balance 1100 ml 765 ml 339 ml 226 ml Intake Oral 440 ml 240 ml 120 ml IV Total 1500 ml 250 ml 524 ml 756 ml Other 1300 ml Output Urine Total 400 ml 950 ml 425 ml 650 ml Estimated Blood Loss 75 ml Other 200 ml # Voids 0 # Bowel Movements 0 0 0 Result Diagram: 03/06/17 0558 03/06/17 0558 Imaging Last Impressions Pelvis X-Ray 03/05/17153 Signed Impressions: Service Date/Time: Sunday, March 05, 2017 02:27 - CONCLUSION: Left intertrochanteric femoral neck fracture. Lexx Baeza MD Femur X-Ray 03/05/174 Signed Impressions: Service Date/Time: Sunday, March 05, 2017 02:32 - CONCLUSION: Intertrochanteric left femoral neck fracture. Lexx Baeza MD Chest X-Ray 03/05/174 Signed Impressions: Service Date/Time: Sunday, March 05, 2017 02:31 - CONCLUSION: 1. Postoperative changes in the right chest which appear stable. 2. Increased density in the medial left base representing either a consolidation or potentially a hiatal hernia. There are some air lucency in this. Lexx Baeza MD Renal Ultrasound 03/05/17 0000 Signed Impressions: Service Date/Time: Sunday, March 05, 2017 21:32 - CONCLUSION: Normal examination. Antonio Santos MD Hip X-Ray 03/05/17 Signed Impressions: Service Date/Time: Sunday, March 05, 2017 10:59 - CONCLUSION: Status post ORIF of a left intratrochanteric fracture with good anatomic alignment. Yasmin Silveira MD Head CT 03/05/17 Signed Impressions: Service Date/Time: Sunday, March 05, 2017 02:56 - CONCLUSION: 1. No intracranial abnormality is seen. 2. Right sinus disease. Lexx Baeza MD Cervical Spine CT 03/05/17 Signed Impressions: Service Date/Time: Sunday, March 05, 2017 02:56 - CONCLUSION: Scattered degenerative change as described above. An acute bony abnormality is not seen. Lexx Baeza MD Abdomen/Pelvis CT 03/05/17 0000 Signed Impressions: Service Date/Time: Sunday, March 05, 2017 03:28 - CONCLUSION: 1. Left intertrochanteric femoral neck fracture. 2. Post operative changed from distal esophagectomy and gastrectomy. Lexx Baeza MD Objective Remarks GENERAL: NAD SKIN: Warm and dry. HEAD: Normocephalic. EYES: No scleral icterus. No injection or drainage. NECK: Supple, trachea midline. No JVD or lymphadenopathy. CARDIOVASCULAR: Regular rate and rhythm without murmurs, gallops, or rubs. RESPIRATORY: Breath sounds equal bilaterally. No accessory muscle use. GASTROINTESTINAL: Abdomen soft, non-tender, nondistended. MUSCULOSKELETAL: No cyanosis, or edema. dressing over left hip incision BACK: Nontender without obvious deformity. No CVA tenderness. A/P Problem List: (1) Closed fracture of intertrochanteric section of femur ICD Code: S72.143A Status: Acute (2) Closed intertrochanteric fracture of hip ICD Code: S72.143A Status: Acute (3) CKD (chronic kidney disease) stage 4, GFR 15-29 ml/min ICD Code: N18.4 Status: Acute (4) Dementia ICD Code: F03.90 Status: Acute (5) Anxiety and depression ICD Code: F41.9 Status: Acute Assessment and Plan 67-year-old man with Closed intertrochanteric fracture of the left hip: Pelvic and femur x-ray with finding of Intertrochanteric left femoral neck fracture; s/p ORIF 03/05/17 and management per orthopedic surgery. PT to treat and eval .Pain Management accordingly with when necessary analgesic/morphine Chronic kidney disease stage IV: Renal indices improving; renal ultrasound normal. Continue with gentle IV fluid hydrations and monitor BUN and creatinine. Avoid all nephrotoxic drugs. Dementia: continue Namenda Anxiety/depression: continue outpatient medications DVT prophylaxis: Lovenox Problem Qualifiers (1) Closed intertrochanteric fracture of hip: Qualified Code: S72.142A - Closed intertrochanteric fracture of hip, left, initial encounter (2) Dementia: Qualified Code: F03.91 - Dementia with behavioral disturbance, unspecified dementia type Michel Gould MD Mar 06, 2017 12:36 Michel Gould MD Mar 06, 2017 12:36
--- NOTE | 2017-03-06 12:46 | PD.ORT.PN ---
Subjective Post Op Day #: 1 Subjective Remarks pain under control. Objective Vitals Vital Signs Date Time Temp Pulse Resp B/P Pulse Ox O2 Delivery O2 Flow Rate FiO2 03/06/17 09:59 94 Nasal Cannula 2.00 03/06/17 09:31 18 03/06/17 07:07 98.6 94 16 115/71 100 03/06/17 00:00 98.7 88 17 118/70 100 03/05/17 20:43 100 Nasal Cannula 2.00 03/05/17 20:00 98.7 92 17 125/74 100 03/05/17 16:00 97.3 78 16 92/60 100 I/O 03/05/17 03/05/17 03/05/17 03/06/17 03/06/17 03/06/17 07:00 15:00 23:00 07:00 15:00 23:00 Intake Total 1500 ml 1990 ml 764 ml 876 ml Output Total 400 ml 1225 ml 425 ml 650 ml Balance 1100 ml 765 ml 339 ml 226 ml Intake Oral 440 ml 240 ml 120 ml IV Total 1500 ml 250 ml 524 ml 756 ml Other 1300 ml Output Urine Total 400 ml 950 ml 425 ml 650 ml Estimated Blood Loss 75 ml Other 200 ml # Voids 0 # Bowel Movements 0 0 0 Result Diagram: 03/06/17 0558 03/06/17 0558 Objective Remarks in bed, nad dressing c/d/i neg homans nvi Assessment & Plan Ortho Post Op Day #: 1 Problem List: Assessment and Plan s/p L troch nail 50% PWB daily dressing changes lovenox d/c planning f/up dr. faustin 2 weeks Benja Francisco Mar 06, 2017 12:46
--- NOTE | 2017-03-06 14:14 | EKG ---
Date Performed: 03/05/2017 Time Performed: 02:00:52 PTAGE: 67 years EKG: Sinus arrhythmia. Since previous tracing, no significant change noted Normal ECG PREVIOUS TRACING : 09/08/2014 10.14 DOCTOR: Dea Charlton Interpretating Date/Time 03/06/2017 14:12:58
[2017-03-06] MEDS: traZODone HCL 50 MG TAB PO SCH (21:22)
[2017-03-06] MEDS: VENLAFAXINE HCL XR 75 MG CAP PO SCH (21:22)
[2017-03-07 00:10] VITALS: BP 114/71; PULSE 87; RESP 17; TEMP 98.9; O2SAT 96
[2017-03-07] MEDS: ACETAMINOPHEN/HYDROcodone 325 MG/7.5 MG TAB PO PRN ×4 (02:34→20:42)
[2017-03-07] MEDS: DEXT 5%-NACL 0.45% 1000 ML INJ 1,000 ML IV SCH ×2 (04:00→14:00)
[2017-03-07] MEDS: ARIPiprazole 2 MG TAB PO SCH (05:57)
[2017-03-07 08:00] VITALS: BP 111/72; PULSE 80; RESP 18; TEMP 97.4; O2SAT 98
[2017-03-07] MEDS: SODIUM CHLORIDE 0.9% FLUSH 10 ML FLUSH IV FLUSH SCH ×2 (08:02→20:43)
[2017-03-07] MEDS: buPROPion HCL 150 MG SUSTAINED RELEASE TAB PO SCH ×2 (08:02→18:10)
[2017-03-07] MEDS: MEMANTINE HCL 10 MG TAB PO SCH ×2 (08:02→20:42)
[2017-03-07] MEDS: DOCUSATE SODIUM 50 MG/SENNA 8.6 MG TAB PO SCH ×2 (08:02→20:42)
[2017-03-07] MEDS: MULTIVITAMINS/MINERALS THERAPEUTIC TAB PO SCH (08:02)
[2017-03-07 08:12] LABS: HEMATOCRIT 27.3 % (39.0-51.0); MEAN CELL VOLUME 90.8 FL (80.0-100.0); MEAN CORPUSCULAR HEMOGLOBIN 29.4 PG (27.0-34.0); MEAN CORPUSCULAR HGB CONC 32.4 % (32.0-36.0); PLATELET COUNT 119 TH/MM3 (150-450); RED CELL DISTRIBUTION WIDTH 14.1 % (11.6-17.2); REVIEW FLAG FINAL; WHITE BLOOD COUNT 5.4 TH/MM3 (4.0-11.0)
[2017-03-07 08:27] LABS: BICARBONATE 28.9 MEQ/L (21.0-32.0); POTASSIUM 4.2 MEQ/L (3.5-5.1)
--- NOTE | 2017-03-07 08:51 | PD.ORT.PN ---
Subjective Post Op Day #: 2 Subjective Remarks pain under control. Objective Vitals Vital Signs Date Time Temp Pulse Resp B/P Pulse Ox O2 Delivery O2 Flow Rate FiO2 03/07/17 00:10 98.9 87 17 114/71 96 03/06/17 20:10 99.1 96 17 121/80 98 03/06/17 18:09 94 Nasal Cannula 2.00 03/06/17 16:00 97.7 92 16 112/73 95 03/06/17 12:00 98.2 100 16 107/70 100 03/06/17 09:59 94 Nasal Cannula 2.00 03/06/17 09:31 18 I/O 03/06/17 03/06/17 03/06/17 03/07/17 03/07/17 03/07/17 07:00 15:00 23:00 07:00 15:00 23:00 Intake Total 876 ml 480 ml 240 ml 120 ml Output Total 650 ml 850 ml 3 ml Balance 226 ml 480 ml -610 ml 117 ml Intake Oral 120 ml 480 ml 240 ml 120 ml IV Total 756 ml Output Urine Total 650 ml 850 ml 3 ml # Voids 0 # Bowel Movements 0 0 0 0 Result Diagram: 03/07/17 0701 03/07/17 0701 Objective Remarks in bed, nad incision no erythema, no drainage neg homans nvi Assessment & Plan Ortho Post Op Day #: 2 Problem List: Assessment and Plan s/p L troch nail 50% PWB daily dressing changes lovenox d/c planning ortho stable f/up dr. faustin 2 weeks Benja Francisco Mar 07, 2017 08:51
--- NOTE | 2017-03-07 09:29 | MP ---
cc: DOUGIE FARIAS M.D. DATE OF SURGERY: 03/05/2017 PREOPERATIVE DIAGNOSIS Left intertrochanteric hip fracture. POSTOPERATIVE DIAGNOSIS Left intertrochanteric hip fracture. PROCEDURE Intramedullary nailing left intertrochanteric hip fracture. SURGEON Dr. Dougie Farias TARGET DEVELOPER Dougie Francisco PA-C ANESTHESIA General. ESTIMATED BLOOD LOSS 100 cc. COMPLICATIONS None. IMPLANTS USED Synthes. JUSTIFICATION This patient is a 67-year-old male who sustained a severe injury to his left hip after a fall with a displaced comminuted intertrochanteric hip fracture. He was evaluated by the undersigned after consultation and admission to [facility]. The patient as well as the patient's power of claims attorney were counseled as to the risks, benefits and alternatives to the above-named proposed surgical procedure and they did wish to proceed with surgery. PROCEDURE IN DETAIL Written consent was obtained, and also appropriate consent from power of claims attorney. The patient was identified, taken to the operating room and placed supine on the operating table. General anesthesia was administered as well as 900 mg of IV clindamycin and one gram of IV vancomycin as he does have a penicillin allergy. The patient was carefully transferred to the fracture table. All bony prominences and pressure points were well-padded. A padded traction boot was placed on the left foot and the right leg placed in a padded well-leg salmeron. Longitudinal traction was applied to assist in preliminary fracture reduction. The left hip and left lower extremity were prepped and draped using isopropyl alcohol, Hibiclens solution and ChloraPrep solution. After a timeout was performed, a longitudinal incision was made over the lateral aspect of the left hip. The fascial layer was incised. A guidewire was used to gain entrance into the intramedullary canal of the femur from the tip of the greater trochanter. This was followed by a cannulated entry reamer. Subsequently, a Synthes 11 mm titanium trochanteric femoral nail was inserted into the intramedullary canal of the femur. A 130 degree locking jig was used to place a guide pin centered into the femoral head on the AP and lateral fluoroscopic projections. Subsequently, a 95 mm spiral blade was inserted. The top locking screw was secured to get a fixed angle sliding construct. Distally a locking jig was used to place a single lateral to medial transverse static locking screw. Fluoroscopic imaging again confirmed hardware placement and fracture reduction. The surgical wound was thoroughly irrigated with sterile saline solution. The fascial layer was closed with #1 Vicryl suture, the subcutaneous tissue layer with 2-0 Vicryl suture and the skin was closed with Dermabond. Sterile dressing was applied. The patient tolerated the procedure well. No intraoperative complications noted. Dougie Francisco, physician assistant superintendent certified, was present during the entire procedure to include patient positioning and the procedure itself. The medical necessity of a physician assistant superintendent was indicated in this case due to the complexity of the procedure. He assisted with appropriate manipulation of the leg and also retraction of muscle, tendon, bone and neurovascular structures. He assisted with both achieving and maintaining fracture reduction along with preparation of bone and implantation of the internal fixation device. Dougie Farias MD JWM/NATALIE /11:08 AM /9:16 AM
--- NOTE | 2017-03-07 10:53 | HHI.PR ---
Subjective Remarks F-u left hip fx s/p repair 03/06/17-patient seen and examined; no acute event overnight. Pain to the left hip stable 03/07/17-patient seen and examined, no change and stable. Pain to left hip well controlled. Objective Vitals Vital Signs Date Time Temp Pulse Resp B/P Pulse Ox O2 Delivery O2 Flow Rate FiO2 03/07/17 09:06 18 03/07/17 08:00 97.4 80 18 111/72 98 03/07/17 00:10 98.9 87 17 114/71 96 03/06/17 20:10 99.1 96 17 121/80 98 03/06/17 18:09 94 Nasal Cannula 2.00 03/06/17 16:00 97.7 92 16 112/73 95 03/06/17 12:00 98.2 100 16 107/70 100 I/O 03/06/17 03/06/17 03/06/17 03/07/17 03/07/17 03/07/17 07:00 15:00 23:00 07:00 15:00 23:00 Intake Total 876 ml 480 ml 240 ml 120 ml Output Total 650 ml 850 ml 3 ml Balance 226 ml 480 ml -610 ml 117 ml Intake Oral 120 ml 480 ml 240 ml 120 ml IV Total 756 ml Output Urine Total 650 ml 850 ml 3 ml # Voids 0 # Bowel Movements 0 0 0 0 Result Diagram: 03/07/17 0703/07/17700 Imaging Last Impressions Pelvis X-Ray 03/05/17153 Signed Impressions: Service Date/Time: Sunday, March 05, 2017 02:27 - CONCLUSION: Left intertrochanteric femoral neck fracture. Lexx Baeza MD Femur X-Ray 03/05/17153 Signed Impressions: Service Date/Time: Sunday, March 05, 2017 02:32 - CONCLUSION: Intertrochanteric left femoral neck fracture. Lexx Baeza MD Chest X-Ray 03/05/17153 Signed Impressions: Service Date/Time: Sunday, March 05, 2017 02:31 - CONCLUSION: 1. Postoperative changes in the right chest which appear stable. 2. Increased density in the medial left base representing either a consolidation or potentially a hiatal hernia. There are some air lucency in this. Lexx Baeza MD Renal Ultrasound 03/05/17 Signed Impressions: Service Date/Time: Sunday, March 05, 2017 21:32 - CONCLUSION: Normal examination. Antonio Santos MD Hip X-Ray 03/05/17 Signed Impressions: Service Date/Time: Sunday, March 05, 2017 10:59 - CONCLUSION: Status post ORIF of a left intratrochanteric fracture with good anatomic alignment. Yasmin Silveira MD Head CT 03/05/17 Signed Impressions: Service Date/Time: Sunday, March 05, 2017 02:56 - CONCLUSION: 1. No intracranial abnormality is seen. 2. Right sinus disease. Lexx Baeza MD Cervical Spine CT 03/05/17 Signed Impressions: Service Date/Time: Sunday, March 05, 2017 02:56 - CONCLUSION: Scattered degenerative change as described above. An acute bony abnormality is not seen. Lexx Baeza MD Abdomen/Pelvis CT 03/05/17 Signed Impressions: Service Date/Time: Sunday, March 05, 2017 03:28 - CONCLUSION: 1. Left intertrochanteric femoral neck fracture. 2. Post operative changed from distal esophagectomy and gastrectomy. Lexx Baeza MD Objective Remarks GENERAL: NAD SKIN: Warm and dry. HEAD: Normocephalic. EYES: No scleral icterus. No injection or drainage. NECK: Supple, trachea midline. No JVD or lymphadenopathy. CARDIOVASCULAR: Regular rate and rhythm without murmurs, gallops, or rubs. RESPIRATORY: Breath sounds equal bilaterally. No accessory muscle use. GASTROINTESTINAL: Abdomen soft, non-tender, nondistended. MUSCULOSKELETAL: No cyanosis, or edema. dressing over left hip incision BACK: Nontender without obvious deformity. No CVA tenderness. Procedures Intramedullary nailing left intertrochanteric hip fracture. A/P Problem List: (1) Closed fracture of intertrochanteric section of femur ICD Code: S72.143A Status: Acute (2) Closed intertrochanteric fracture of hip ICD Code: S72.143A Status: Acute (3) CKD (chronic kidney disease) stage 4, GFR 15-29 ml/min ICD Code: N18.4 Status: Acute (4) Dementia ICD Code: F03.90 Status: Acute (5) Anxiety and depression ICD Code: F41.9 Status: Acute Assessment and Plan 67-year-old man with Closed intertrochanteric fracture of the left hip: Pelvic and femur x-ray with finding of Intertrochanteric left femoral neck fracture; s/p Intramedullary nailing left intertrochanteric hip fracture 03/05/17 and management per orthopedic surgery. PT to treat and eval .Pain Management accordingly with when necessary analgesic/morphine Chronic kidney disease stage IV: Renal indices improving BUn/Cr 24/1.54; renal ultrasound normal. Continue with gentle IV fluid hydrations and monitor BUN and creatinine. Avoid all nephrotoxic drugs. Dementia: continue Namenda Anxiety/depression: continue outpatient medications DVT prophylaxis: Lovenox Discharge Planning Likely discharge 03/08/17 to SNF Problem Qualifiers (1) Closed intertrochanteric fracture of hip: Qualified Code: S72.142A - Closed intertrochanteric fracture of hip, left, initial encounter (2) Dementia: Qualified Code: F03.91 - Dementia with behavioral disturbance, unspecified dementia type Michel Gould MD Mar 07, 2017 10:53
[2017-03-07] MEDS: ENOXAPARIN SODIUM 30 MG/0.3 ML SYRINGE SQ SCH (11:33)
[2017-03-07 12:00] VITALS: BP 107/69; PULSE 84; RESP 18; TEMP 96.9; O2SAT 98
[2017-03-07 15:30] VITALS: BP 107/79; PULSE 95; RESP 16; TEMP 96.5; O2SAT 96
[2017-03-07 19:00] VITALS: BP 92/66; PULSE 96; RESP 16; TEMP 97.9; O2SAT 97
[2017-03-07] MEDS: traZODone HCL 50 MG TAB PO SCH (20:42)
[2017-03-07] MEDS: VENLAFAXINE HCL XR 75 MG CAP PO SCH (20:42)
[2017-03-07 21:48] VITALS: O2SAT 97
[2017-03-08 00:10] VITALS: BP 94/71; PULSE 89; RESP 16; TEMP 98.1; O2SAT 95
[2017-03-08] MEDS: ARIPiprazole 2 MG TAB PO SCH (05:06)
[2017-03-08] MEDS: ACETAMINOPHEN/HYDROcodone 325 MG/7.5 MG TAB PO PRN ×3 (05:06→14:16)
[2017-03-08 07:20] LABS: HEMATOCRIT 26.9 % (39.0-51.0); MEAN CELL VOLUME 89.7 FL (80.0-100.0); MEAN CORPUSCULAR HEMOGLOBIN 29.9 PG (27.0-34.0); MEAN CORPUSCULAR HGB CONC 33.3 % (32.0-36.0); PLATELET COUNT 151 TH/MM3 (150-450); RED CELL DISTRIBUTION WIDTH 13.9 % (11.6-17.2); REVIEW FLAG FINAL; WHITE BLOOD COUNT 5.2 TH/MM3 (4.0-11.0)
[2017-03-08 07:35] LABS: BICARBONATE 26.6 MEQ/L (21.0-32.0); POTASSIUM 4.7 MEQ/L (3.5-5.1)
[2017-03-08] MEDS: MULTIVITAMINS/MINERALS THERAPEUTIC TAB PO SCH (07:49)
[2017-03-08] MEDS: buPROPion HCL 150 MG SUSTAINED RELEASE TAB PO SCH ×2 (07:49→16:14)
[2017-03-08] MEDS: MEMANTINE HCL 10 MG TAB PO SCH (07:50)
[2017-03-08] MEDS: SODIUM CHLORIDE 0.9% FLUSH 10 ML FLUSH IV FLUSH SCH (07:50)
[2017-03-08] MEDS: DOCUSATE SODIUM 50 MG/SENNA 8.6 MG TAB PO SCH (07:50)
--- NOTE | 2017-03-08 07:54 | PD.ORT.PN ---
Subjective Post Op Day #: 3 Subjective Remarks pain under control. Objective Vitals Vital Signs Date Time Temp Pulse Resp B/P Pulse Ox O2 Delivery O2 Flow Rate FiO2 03/08/17 07:15 Room Air 03/08/17 00:10 98.1 89 16 94/71 95 03/07/17 21:48 97 21 03/07/17 19:00 97.9 96 16 92/66 97 03/07/17 15:30 96.5 95 16 107/79 96 03/07/17 13:51 18 03/07/17 12:00 96.9 84 18 107/69 98 03/07/17 08:00 97.4 80 18 111/72 98 I/O 03/07/17 03/07/17 03/07/17 03/08/17 03/08/17 03/08/17 07:00 15:00 23:00 07:00 15:00 23:00 Intake Total 120 ml 600 ml 120 ml Output Total 3 ml Balance 117 ml 600 ml 120 ml Intake Oral 120 ml 600 ml 120 ml Output Urine Total 3 ml # Voids 2 1 # Bowel Movements 0 0 0 Result Diagram: 03/08/1761603/08/1717 Objective Remarks in chair eating, nad incision no erythema, no drainage neg homans nvi Assessment & Plan Ortho Post Op Day #: 3 Problem List: Assessment and Plan s/p L troch nail 50% PWB daily dressing changes lovenox d/c planning ortho stable - cleared for d/c f/up dr. faustin 2 weeks Benja Francisco Mar 08, 2017 07:54
[2017-03-08 08:00] VITALS: BP 91/58; PULSE 101; RESP 16; TEMP 96.5; O2SAT 97
[2017-03-08] MEDS: DEXT 5%-NACL 0.45% 1000 ML INJ 1,000 ML IV SCH (10:00)
[2017-03-08] MEDS ORDERED: PERI8.6T PO (10:22)
--- NOTE | 2017-03-08 10:32 | HHI.PR ---
Subjective Remarks F-u left hip fx s/p repair 03/06/17-patient seen and examined; no acute event overnight. Pain to the left hip stable 03/07/17-patient seen and examined, no change and stable. Pain to left hip well controlled. 03/08/17-patient seen and examined; stable and afebrile Objective Vitals Vital Signs Date Time Temp Pulse Resp B/P Pulse Ox O2 Delivery O2 Flow Rate FiO2 03/08/17 08:00 96.5 101 16 91/58 97 03/08/17 07:15 Room Air 03/08/17 00:10 98.1 89 16 94/71 95 03/07/17 21:48 97 21 03/07/17 19:00 97.9 96 16 92/66 97 03/07/17 15:30 96.5 95 16 107/79 96 03/07/17 13:51 18 03/07/17 12:00 96.9 84 18 107/69 98 I/O 03/07/17 03/07/17 03/07/17 03/08/17 03/08/17 03/08/17 07:00 15:00 23:00 07:00 15:00 23:00 Intake Total 120 ml 600 ml 120 ml Output Total 3 ml Balance 117 ml 600 ml 120 ml Intake Oral 120 ml 600 ml 120 ml Output Urine Total 3 ml # Voids 2 1 # Bowel Movements 0 0 0 Result Diagram: 03/08/1761603/08/17616 Imaging Last Impressions Pelvis X-Ray 03/05/17153 Signed Impressions: Service Date/Time: Sunday, March 05, 2017 02:27 - CONCLUSION: Left intertrochanteric femoral neck fracture. Lexx Baeza MD Femur X-Ray 03/05/17153 Signed Impressions: Service Date/Time: Sunday, March 05, 2017 02:32 - CONCLUSION: Intertrochanteric left femoral neck fracture. Lexx Baeza MD Chest X-Ray 03/05/17153 Signed Impressions: Service Date/Time: Sunday, March 05, 2017 02:31 - CONCLUSION: 1. Postoperative changes in the right chest which appear stable. 2. Increased density in the medial left base representing either a consolidation or potentially a hiatal hernia. There are some air lucency in this. Lexx Baeza MD Renal Ultrasound 03/05/17 Signed Impressions: Service Date/Time: Sunday, March 05, 2017 21:32 - CONCLUSION: Normal examination. Antonio Santos MD Hip X-Ray 03/05/17 Signed Impressions: Service Date/Time: Sunday, March 05, 2017 10:59 - CONCLUSION: Status post ORIF of a left intratrochanteric fracture with good anatomic alignment. Yasmin Silveira MD Head CT 03/05/17 Signed Impressions: Service Date/Time: Sunday, March 05, 2017 02:56 - CONCLUSION: 1. No intracranial abnormality is seen. 2. Right sinus disease. Lexx Baeza MD Cervical Spine CT 03/05/17 Signed Impressions: Service Date/Time: Sunday, March 05, 2017 02:56 - CONCLUSION: Scattered degenerative change as described above. An acute bony abnormality is not seen. Lexx Baeza MD Abdomen/Pelvis CT 03/05/17 Signed Impressions: Service Date/Time: Sunday, March 05, 2017 03:28 - CONCLUSION: 1. Left intertrochanteric femoral neck fracture. 2. Post operative changed from distal esophagectomy and gastrectomy. Lexx Baeza MD Objective Remarks GENERAL: NAD SKIN: Warm and dry. HEAD: Normocephalic. EYES: No scleral icterus. No injection or drainage. NECK: Supple, trachea midline. No JVD or lymphadenopathy. CARDIOVASCULAR: Regular rate and rhythm without murmurs, gallops, or rubs. RESPIRATORY: Breath sounds equal bilaterally. No accessory muscle use. GASTROINTESTINAL: Abdomen soft, non-tender, nondistended. MUSCULOSKELETAL: No cyanosis, or edema. dressing over left hip incision BACK: Nontender without obvious deformity. No CVA tenderness. Procedures Intramedullary nailing left intertrochanteric hip fracture. A/P Problem List: (1) Closed fracture of intertrochanteric section of femur ICD Code: S72.143A Status: Acute (2) Closed intertrochanteric fracture of hip ICD Code: S72.143A Status: Acute (3) CKD (chronic kidney disease) stage 4, GFR 15-29 ml/min ICD Code: N18.4 Status: Acute (4) Dementia ICD Code: F03.90 Status: Acute (5) Anxiety and depression ICD Code: F41.9 Status: Acute Assessment and Plan 67-year-old man with Closed intertrochanteric fracture of the left hip: Pelvic and femur x-ray with finding of Intertrochanteric left femoral neck fracture; s/p Intramedullary nailing left intertrochanteric hip fracture 03/05/17 and management per orthopedic surgery. PT to treat and eval .Pain Management accordingly with when necessary analgesic/morphine Chronic kidney disease stage IV: Renal indices improved with IVF ; renal ultrasound normal. monitor BUN and creatinine. Avoid all nephrotoxic drugs. Dementia: continue Namenda Anxiety/depression: continue outpatient medications DVT prophylaxis: ASA on discharge Discharge Planning discharge to SNF Problem Qualifiers (1) Closed intertrochanteric fracture of hip: Qualified Code: S72.142A - Closed intertrochanteric fracture of hip, left, initial encounter Michel Gould MD Mar 08, 2017 10:32
--- NOTE | 2017-03-08 10:34 | HHI.DS ---
Discharge Summary Admission Date Mar 05, 2017 at 04:40 Discharge Date: Mar 08, 2017 Admitting Diagnosis L hip fracture; renal insufficiency; syncope (1) Closed fracture of intertrochanteric section of femur ICD Code: S72.143A (2) Closed intertrochanteric fracture of hip ICD Code: S72.143A (3) CKD (chronic kidney disease) stage 4, GFR 15-29 ml/min ICD Code: N18.4 (4) Dementia ICD Code: F03.90 (5) Anxiety and depression ICD Code: F41.9 Procedures Intramedullary nailing left intertrochanteric hip fracture. Brief History - From Admission 67yrs old man with a PMH of Dementia, Anxiety/Depression and a resident of a Local assisted was brought to the ED for evaluation of hip pain s/p mechanical fall which happened around 10PM last night when patient became upset with the staff as a wheelchair that was requested and was not available at the time; patient threw himself on the floor. Pelvic and femur x-ray revealed finding of Intertrochanteric left femoral neck fracture for which Orthopedic surgery was consulted and patient taken to the OR today and underwent open reduction internal fixation. Patient was seen in PACU, where he was stable CBC/BMP: 03/08/17 0617 03/08/17 0617 Significant Findings Laboratory Tests Test 03/06/17 03/07/17 03/08/17 05:58 07:01 06:17 Red Blood Count 3.09 MIL/MM3 3.00 MIL/MM3 3.00 MIL/MM3 (4.50-5.90) (4.50-5.90) (4.50-5.90) Hemoglobin 9.4 GM/DL 8.8 GM/DL 9.0 GM/DL (13.0-17.0) (13.0-17.0) (13.0-17.0) Hematocrit 27.4 % 27.3 % 26.9 % (39.0-51.0) (39.0-51.0) (39.0-51.0) Platelet Count 93 TH/MM3 119 TH/MM3 (150-450) (150-450) Band Neutrophils % 19 % (0-6) Platelet Estimate LOW (NORMAL) Blood Urea Nitrogen 36 MG/DL (7-18) 24 MG/DL (7-18) 26 MG/DL (7-18) Creatinine 2.08 MG/DL 1.54 MG/DL 1.53 MG/DL (0.60-1.30) (0.60-1.30) (0.60-1.30) Estimat Glomerular Filtration 32 ML/MIN (>89) 45 ML/MIN (>89) 46 ML/MIN (>89) Rate Calcium Level 7.7 MG/DL 8.3 MG/DL (8.5-10.1) (8.5-10.1) Aspartate Amino Transf 137 U/L (15-37) (AST/SGOT) Total Protein 5.3 GM/DL (6.4-8.2) Albumin 2.4 GM/DL (3.4-5.0) Random Glucose 121 MG/DL (74-106) Imaging Last Impressions Pelvis X-Ray 03/05/17153 Signed Impressions: Service Date/Time: Sunday, March 05, 2017 02:27 - CONCLUSION: Left intertrochanteric femoral neck fracture. Lexx Baeza MD Femur X-Ray 03/05/17153 Signed Impressions: Service Date/Time: Sunday, March 05, 2017 02:32 - CONCLUSION: Intertrochanteric left femoral neck fracture. Lexx Baeza MD Chest X-Ray 03/05/17153 Signed Impressions: Service Date/Time: Sunday, March 05, 2017 02:31 - CONCLUSION: 1. Postoperative changes in the right chest which appear stable. 2. Increased density in the medial left base representing either a consolidation or potentially a hiatal hernia. There are some air lucency in this. Lexx Baeza MD Renal Ultrasound 03/05/17 0000 Signed Impressions: Service Date/Time: Sunday, March 05, 2017 21:32 - CONCLUSION: Normal examination. Antonio Santos MD Hip X-Ray 03/05/17 0000 Signed Impressions: Service Date/Time: Sunday, March 05, 2017 10:59 - CONCLUSION: Status post ORIF of a left intratrochanteric fracture with good anatomic alignment. Yasmin Silveira MD Head CT 03/05/17 0000 Signed Impressions: Service Date/Time: Sunday, March 05, 2017 02:56 - CONCLUSION: 1. No intracranial abnormality is seen. 2. Right sinus disease. Lexx Baeza MD Cervical Spine CT 03/05/17 0000 Signed Impressions: Service Date/Time: Sunday, March 05, 2017 02:56 - CONCLUSION: Scattered degenerative change as described above. An acute bony abnormality is not seen. Lexx Baeza MD Abdomen/Pelvis CT 03/05/17 0000 Signed Impressions: Service Date/Time: Sunday, March 05, 2017 03:28 - CONCLUSION: 1. Left intertrochanteric femoral neck fracture. 2. Post operative changed from distal esophagectomy and gastrectomy. Lexx Baeza MD PE at Discharge GENERAL: NAD SKIN: Warm and dry. HEAD: Normocephalic. EYES: No scleral icterus. No injection or drainage. NECK: Supple, trachea midline. No JVD or lymphadenopathy. CARDIOVASCULAR: Regular rate and rhythm without murmurs, gallops, or rubs. RESPIRATORY: Breath sounds equal bilaterally. No accessory muscle use. GASTROINTESTINAL: Abdomen soft, non-tender, nondistended. MUSCULOSKELETAL: No cyanosis, or edema. dressing over left hip incision BACK: Nontender without obvious deformity. No CVA tenderness. Hospital Course Closed intertrochanteric fracture of the left hip: Pelvic and femur x-ray with finding of Intertrochanteric left femoral neck fracture; s/p Intramedullary nailing left intertrochanteric hip fracture 03/05/17 and management per orthopedic surgery. PT to treat and eval .Pain Management accordingly with when necessary analgesic/morphine Chronic kidney disease stage IV: Renal indices improved with IVF ; renal ultrasound normal. monitor BUN and creatinine. Avoid all nephrotoxic drugs. Dementia: Treated with Namenda Anxiety/depression: outpatient medications were resumed DVT prophylaxis: ASA on discharge Pt Condition on Discharge: Stable Discharge Disposition: Discharge to SNF Discharge Time: > 30 minutes Discharge Instructions DIET: Follow Instructions for: Heart Healthy Diet Activities you can perform: Partial Weight Bearing Follow up Referrals: Orthopedics PCP Follow-up - 2-3 Days New Medications: Aspirin (Aspirin Low Dose) 81 Mg Chew 81 MG CHEW DAILY Prevent Blood Clot #30 Ref 0 TAB Hydrocodone-Acetaminophen ([place]) 7.5-325 mg Tab 1 TAB PO Q6H PRN PAIN #60 Ref 0 TAB Sennosides-Docusate Sodium (Yasmeen-Colace) 8.6-50 Mg Tab 1 TAB PO BID PRN Constipation #20 Ref 0 TAB Continued Medications: Aripiprazole (Abilify) 2 Mg Tab 2 MG PO DAILY@0600 #30 Ref 3 TAB Bupropion HCl ER 12 HR (Wellbutrin SR 12 HR) 150 Mg Tab 150 MG PO 1qam,1q4pm Control Depression #60 Ref 3 TAB Memantine (Namenda) 10 Mg Tab 10 MG PO BID Alzheimer Disease #60 Ref 3 TAB Trazodone (Trazodone) 50 Mg Tab 50 MG PO HS Insomnia #30 Ref 3 TAB Venlafaxine ER 24 HR (Venlafaxine ER 24 HR) 150 Mg Cap 150 MG PO HS #30 Ref 4 CAP Discontinued Medications: Loperamide (Loperamide) 2 Mg Cap 2 MG PO DIRECTED One capsule after each loose stool. Not to exceed 8 capsules per day. PRN DIARRHEA Ref 0 CAP Michel Gould MD Mar 08, 2017 10:34
[2017-03-08] MEDS ORDERED: MAGNESIUM HYDROXIDE SUSP 30 ML CUP PO PRN (11:00)
[2017-03-08] MEDS: ENOXAPARIN SODIUM 30 MG/0.3 ML SYRINGE SQ SCH (11:11)
[2017-03-08 11:46] VITALS: BP 160/74; PULSE 102; RESP 16; TEMP 96.8; O2SAT 98
[2017-03-08 16:00] VITALS: BP 117/76; PULSE 98
== END 2017-03-08 19:15 | DRG 481 ==
LOC: PHED 00:14 → PHEDA 04:40 → N06A 07:38
PROVIDERS: ADMIT Hospitalist; ATTEND Hospitalist
PROC: 0QS706Z Reposition Left Upper Femur with Intramedullary Internal Fixation Device, Open Approach (ICD-10-PCS; principal; 2017-03-05 09:59)
DX: S72.142A Displaced intertrochanteric fracture of left femur, initial encounter for closed fracture (principal); F03.91 Unspecified dementia, unspecified severity, with behavioral disturbance; N18.4 Chronic kidney disease, stage 4 (severe); W18.30XA Fall on same level, unspecified, initial encounter; Y92.129 Unspecified place in nursing home as the place of occurrence of the external cause; F41.8 Other specified anxiety disorders; Z85.01 Personal history of malignant neoplasm of esophagus; Z90.3 Acquired absence of stomach [part of]
CPT/HCPCS: 70450; 71010; 72125; 72170; 73502; 73552; 74176; 76000; 76775; 80048; 80053; 81001; 83605; 83735; 85007; 85025; 85027; 85610; 85730; 86850; 86900; 86901; 93005; 94150; 96360; 96361; C1713; J0131; J1580; J1650; J2270; J2370; J2405; J2710; J3010; J3370; J7030; J7040; J7050; J7120

== ENCOUNTER 2017-07-28 18:03 | Observation (INO) | payer MEDICARE, OTHER ==
[~2017-07-28] VITALS: Ht 177.8 cm; Wt 70.0 kg
[~2017-07-28 18:03] MED LIST changes: +ASPI81CH37 CHEW; +HYDR-3288 PO; -OMEP20CA2; +PERI8.6T PO; -[UNRECOGNIZED DRUG - CODE] PO
[2017-07-28 20:17] VITALS: BP 141/86; PULSE 86; RESP 16; TEMP 98.4; O2SAT 97
[2017-07-28 20:22] LABS: AUTOMATED NEUTROPHIL # 5.5 TH/MM3 (1.8-7.7); BASOPHIL # 0.1 TH/MM3 (0-0.2); EOSINOPHIL # 0.2 TH/MM3 (0-0.4); EOSINOPHIL % 1.9 % (0.0-4.0); HEMATOCRIT 39.1 % (39.0-51.0); HEMO FLAGS DIFF FINAL; LYMPH % 16.8 % (9.0-44.0); LYMPHOCYTE # 1.4 TH/MM3 (1.0-4.8); MEAN CELL VOLUME 86.8 FL (80.0-100.0); MEAN CORPUSCULAR HEMOGLOBIN 27.7 PG (27.0-34.0); NEUT % 64.3 % (16.0-70.0); PLATELET COUNT 271 TH/MM3 (150-450); RED BLOOD COUNT 4.51 MIL/MM3 (4.50-5.90); WHITE BLOOD COUNT 8.5 TH/MM3 (4.0-11.0)
[2017-07-28] MEDS ORDERED: VITA100036 PO (20:27)
[2017-07-28 20:31] LABS: INTERNATIONAL NORMALIZED RATIO 0.9 RATIO; PROTHROMBIN TIME - PATIENT 10.4 SEC (9.8-11.6)
[2017-07-28 20:52] LABS: ALT (GPT) 23 U/L (12-78)
[2017-07-28 20:54] LABS: ALKALINE PHOSPHATASE 165 U/L (45-117); TOTAL BILIRUBIN ADULT 0.3 MG/DL (0.2-1.0)
[2017-07-28 20:55] LABS: ANION GAP 7 MEQ/L (5-15); AST (GOT) 34 U/L (15-37); BICARBONATE 26.9 MEQ/L (21.0-32.0); BLOOD UREA NITROGEN 23 MG/DL (7-18); CHLORIDE 104 MEQ/L (98-107); GLOMERULAR FILTRATION RATE 37 ML/MIN (>89); POTASSIUM 4.6 MEQ/L (3.5-5.1); SODIUM (NA) 138 MEQ/L (136-145)
--- NOTE | 2017-07-28 22:12 | PD ---
HPI Chief Complaint: Abdominal Pain Time Seen by Provider: 20:18 Travel History International Travel<30 days: No Contact w/Intl Traveler<30days: No Traveled to known affect area: No History of Present Illness HPI 67-year-old male arrives by EMS from assisted living facility. He suffers with dementia. 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 Evidently imaging, plain film, performed yesterday revealed ileus and he was sent to the ER for rule out bowel obstruction. Due to nonverbal state history limited at time of ER arrival. History obtained by EMS and with LONG-TERM paperwork. PFSH Past Medical History Anxiety: Yes Depression: Yes Cancer: Yes (esophageal and gastric) Dementia: Yes Past Surgical History Abdominal Surgery: Yes Pacemaker: No Other Surgery: Yes (partial gastrectomy) Social History Alcohol Use: No Tobacco Use: No Substance Use: No Allergies-Medications (Allergen,Severity, Reaction): Coded Allergies: Sulfa (Sulfonamide Antibiotics) (Unverified Allergy, Unknown, 07/28/17) penicillin G (Unverified Allergy, Unknown, 07/28/17) prochlorperazine (Unverified Allergy, Unknown, 07/28/17) Reported Meds & Prescriptions Reported Meds & Active Scripts Active Yasmeen-Colace (Sennosides-Docusate Sodium) 8.6-50 Mg Tab 1 Tab PO BID PRN Aspirin Low Dose (Aspirin) 81 Mg Chew 81 Mg CHEW DAILY [place] (Hydrocodone-Acetaminophen) 7.5-325 mg Tab 1 Tab PO Q6H PRN Abilify (Aripiprazole) 2 Mg Tab 2 Mg PO DAILY@0600 Wellbutrin SR 12 HR (Bupropion HCl) 150 Mg Tab 150 Mg PO 1QAM,1Q4PM Trazodone (Trazodone HCl) 50 Mg Tab 50 Mg PO HS Namenda (Memantine) 10 Mg Tab 10 Mg PO BID Venlafaxine ER 24 HR (Venlafaxine HCl) 150 Mg Cap 150 Mg PO HS Reported Vitamin D3 (Cholecalciferol) 1,000 Unit Cap 1,000 Units PO DAILY Integra (Multi-Vit/Iron-B Comp-Vit C) Unknown Strength Cap Unknown Dose Review of Systems ROS Limitations: Clinical Condition Physical Exam Narrative GENERAL: Well-nourished well-developed 67-year-old male no acute distress SKIN: Warm and dry. HEAD: Atraumatic. Normocephalic. EYES: Pupils equal and round. No scleral icterus. No injection or drainage. ENT: No nasal bleeding or discharge. Mucous membranes pink and moist. NECK: Trachea midline. No JVD. CARDIOVASCULAR: Regular rate and rhythm. RESPIRATORY: No accessory muscle use. Clear to auscultation. Breath sounds equal bilaterally. GASTROINTESTINAL: soft. Minimal tenderness palpation left lower quadrant. MUSCULOSKELETAL: Extremities without clubbing, cyanosis, or edema. No obvious deformities. NEUROLOGICAL: Cranial nerves II through XII normal. Moving all extremities normally. Patient makes good eye contact however is nonverbal. PSYCHIATRIC: Normal seasonal attire. Well nourished. Data Data Last Documented VS Vital Signs Date Time Temp Pulse Resp B/P (MAP) Pulse Ox O2 Delivery O2 Flow Rate FiO2 07/28/17 20:17 98.4 86 16 141/86 (104) 97 VS reviewed Orders Orders Complete Blood Count With Diff (07/28/17 19:49) Comprehensive Metabolic Panel (07/28/17 19:49) Prothrombin Time / Inr (Pt) (07/28/17 19:49) Urinalysis - C+S If Indicated (07/28/17 19:49) Ct Abd/Pel W/O Iv Contrast (07/28/17 20:18) Admit Order (Ed Use Only) (07/28/17 23:41) Labs Laboratory Tests Test 07/28/17 19:50 White Blood Count 8.5 TH/MM3 Red Blood Count 4.51 MIL/MM3 Hemoglobin 12.5 GM/DL Hematocrit 39.1 % Mean Corpuscular Volume 86.8 FL Mean Corpuscular Hemoglobin 27.7 PG Mean Corpuscular Hemoglobin Concent 32.0 % Red Cell Distribution Width 16.0 % Platelet Count 271 TH/MM3 Mean Platelet Volume 7.0 FL Neutrophils (%) (Auto) 64.3 % Lymphocytes (%) (Auto) 16.8 % Monocytes (%) (Auto) 16.0 % Eosinophils (%) (Auto) 1.9 % Basophils (%) (Auto) 1.0 % Neutrophils # (Auto) 5.5 TH/MM3 Lymphocytes # (Auto) 1.4 TH/MM3 Monocytes # (Auto) 1.4 TH/MM3 Eosinophils # (Auto) 0.2 TH/MM3 Basophils # (Auto) 0.1 TH/MM3 CBC Comment DIFF FINAL Differential Comment Prothrombin Time 10.4 SEC Prothromb Time International Ratio 0.9 RATIO Blood Urea Nitrogen 23 MG/DL Creatinine 1.84 MG/DL Random Glucose 104 MG/DL Total Protein 7.4 GM/DL Albumin 3.0 GM/DL Calcium Level 8.8 MG/DL Alkaline Phosphatase 165 U/L Aspartate Amino Transf (AST/SGOT) 34 U/L Alanine Aminotransferase (ALT/SGPT) 23 U/L Total Bilirubin 0.3 MG/DL Sodium Level 138 MEQ/L Potassium Level 4.6 MEQ/L Chloride Level 104 MEQ/L Carbon Dioxide Level 26.9 MEQ/L Anion Gap 7 MEQ/L Estimat Glomerular Filtration Rate 37 ML/MIN MDM Medical Decision Making Medical Screen Exam Complete: Yes Emergency Medical Condition: Yes Medical Record Reviewed: Yes Differential Diagnosis Constipation, Gastritis, Acute Cholecystitis, Biliary Colic, Pancreatitis, CARRILLO , Hepatitis, Bowel Obstruction, Cystitis, Mesenteric Ischemia, AAA, Appendicitis , Renal Stone/Hydronephrosis, GERD, perforated viscous Narrative Course CBC & BMP Diagram 07/28/17 19:50 Total Protein 7.4, Albumin 3.0 L, Calcium Level 8.8, Alkaline Phosphatase 165 H , Aspartate Amino Transf (AST/SGOT) 34, Alanine Aminotransferase (ALT/SGPT) 23, Total Bilirubin 0.3 Last 24 hours Impressions Abdomen/Pelvis CT 07/28/172017 Signed Impressions: Service Date/Time: Friday, July 28, 2017 21:57 - CONCLUSION: 1. Negative for bowel obstruction. 2. Constipation, especially in the rectum which is distended to 8.5 cm. 3. Previous distal esophagectomy and gastric pull-through procedure with herniation of colon and to the lower left chest. Antonio Santos MD d/w Dr Emery for GI, ok for colonoscopy disimpaction tomorrow d/w Dr Lara for [facility] Diagnosis Primary Impression: Fecal impaction in rectum Admitting Information Admitting Physician Requests: Observation Giacomo Ac MD Jul 28, 2017 22:12
--- NOTE | 2017-07-28 23:13 | RADRPT ---
EXAM DATE/TIME: 07/28/2017 21:57 [facility] COMPARISON: No previous studies available for comparison. INDICATIONS : Abdomen pain. Possible obstruction. ORAL CONTRAST: No oral contrast ingested. RADIATION DOSE: 4.67 CTDIvol (mGy) MEDICAL HISTORY : Dementia. Carcinoma, esophageal. SURGICAL HISTORY : Partial gastrectomy ENCOUNTER: Initial ACUITY: 1 day PAIN SCALE: 5/10 LOCATION: Bilateral abdomen TECHNIQUE: Volumetric scanning of the abdomen and pelvis was performed. Using automated exposure control and ad justment of the mA and/or kV according to patient size, radiation dose was kept as low as reasonably achievable to obtain optimal diagnostic quality images. DICOM format image data is available electro nically for review and comparison. FINDINGS: Lung bases demonstrate postop changes of distal esophagectomy and gastric pull-through procedure. The re is some herniation of colon into the lower left chest. Lung bases otherwise clear. No acute findings in the liver, spleen, adrenals, kidneys or pancreas. No bowel obstruction. There is severe rectal constipation with rectum dilated to about 9.5 cm. Moderate constipation in the remaind er of the colon. No acute bony abnormality. CONCLUSION: 1. Negative for bowel obstruction. 2. Constipation, especially in the rectum which is distended to 8.5 cm. 3. Previous distal esophagectomy and gastric pull-through procedure with herniation of colon and to t he lower left chest. Antonio Santos MD on July 28, 2017 at 23:07 Board Certified Radiologist. This report was verified electronically.
--- NOTE | 2017-07-28 23:43 | HHI.HP ---
[facility] Prashant Perez MD Admission Diagnosis Fecal Impaction Diagnoses: (1) Fecal impaction in rectum Diagnosis: Principal (2) Renal insufficiency Diagnosis: Principal (3) Dementia Diagnosis: Principal Travel History International Travel<30 Days: No Contact w/Intl Traveler <30 Da: No Traveled to Known Affected Are: No History of Present Illness This is a 67-year-old male with a PMH of Dementia, Anxiety, Depression and Esophageal/Gastric CA s/p Gastrectomy who was sent to the ER from [facility] for eval of possible SBO. Pt had Abd X-ray done as outpatient yesterday which revealed Ileus, sent to ER for possible SBO, no BM for 4-6 days per records. Unable to obtain history from patient due to severe dementia. On arrival, BP 141/86, HR 86, O2 sat 97% on RA, Afebrile. CBC essentially unremarkable. Creatinine 1.84, previously 1.53 on 03/08/17. INR 0.9. CT Abd/ Pelvis negative for bowel obstruction, constipation especially in rectum which is distended to 8.5cm, unable to manually disimpact by ER physician. GI Consulted by ER physician, plan is for Colonoscopy for disimpaction in am. Review of Systems ROS: Unable to obtain. Past Family Social History Past Medical History PMH: Dementia, Anxiety, Depression and Esophageal/Gastric CA s/p Gastrectomy Past Surgical History PAST SURGICAL HISTORY: Partial Gastrectomy Allergies: Coded Allergies: Sulfa (Sulfonamide Antibiotics) (Unverified Allergy, Unknown, 07/28/17) penicillin G (Unverified Allergy, Unknown, 07/28/17) prochlorperazine (Unverified Allergy, Unknown, 07/28/17) Family History PAST FAMILY HISTORY: Reviewed. No h/o DM or CAD Social History PAST SOCIAL HISTORY: Negative for alcohol, tobacco or drugs. Physical Exam Vital Signs Vital Signs Date Time Temp Pulse Resp B/P (MAP) Pulse Ox O2 Delivery O2 Flow Rate FiO2 07/28/17 20:17 98.4 86 16 141/86 (104) 97 Physical Exam PE: GENERAL: Middle-aged white male in no acute distress. HEENT: PERRLA, EOMI. No scleral icterus or conjunctival pallor. No lid lag or facial droop. CARDIOVASCULAR: Regular rate and rhythm. No obvious murmurs to auscultation. No chest tenderness to palpation. RESPIRATORY: No obvious rhonchi or wheezing. Clear to auscultation. Breath sounds equal bilaterally. GASTROINTESTINAL: Abdomen soft, non-tender, nondistended. BS normal. MUSCULOSKELETAL: Extremities without clubbing, cyanosis, or edema. No obvious deformities. NEUROLOGICAL: Awake, alert. Nonverbal, at baseline. No focal neurologic deficits. Moving both upper and lower extremities spontaneously. Laboratory Laboratory Tests Test 07/28/17 19:50 White Blood Count 8.5 Red Blood Count 4.51 Hemoglobin 12.5 Hematocrit 39.1 Mean Corpuscular Volume 86.8 Mean Corpuscular Hemoglobin 27.7 Mean Corpuscular Hemoglobin Concent 32.0 Red Cell Distribution Width 16.0 Platelet Count 271 Mean Platelet Volume 7.0 Neutrophils (%) (Auto) 64.3 Lymphocytes (%) (Auto) 16.8 Monocytes (%) (Auto) 16.0 Eosinophils (%) (Auto) 1.9 Basophils (%) (Auto) 1.0 Neutrophils # (Auto) 5.5 Lymphocytes # (Auto) 1.4 Monocytes # (Auto) 1.4 Eosinophils # (Auto) 0.2 Basophils # (Auto) 0.1 CBC Comment DIFF FINAL Differential Comment Prothrombin Time 10.4 Prothromb Time International Ratio 0.9 Blood Urea Nitrogen 23 Creatinine 1.84 Random Glucose 104 Total Protein 7.4 Albumin 3.0 Calcium Level 8.8 Alkaline Phosphatase 165 Aspartate Amino Transf (AST/SGOT) 34 Alanine Aminotransferase (ALT/SGPT) 23 Total Bilirubin 0.3 Sodium Level 138 Potassium Level 4.6 Chloride Level 104 Carbon Dioxide Level 26.9 Anion Gap 7 Estimat Glomerular Filtration Rate 37 Result Diagram: 07/28/17 1950 07/28/171949 Caprini VTE Risk Assessment Caprini VTE Risk Assessment: No/Low Risk (score <= 1) Caprini Risk Assessment Model Point Value = 1 Point Value = 2 Point Value = 3 Point Value = 5 Age 41-60 Minor surgery BMI > 25 kg/m2 Swollen legs Varicose veins or History of unexplained or recurrent spontaneous Oral contraceptives or hormone replacement Sepsis (< 1 month) Serious lung disease, including pneumonia (< 1 month) Abnormal pulmonary function Acute myocardial infarction Congestive heart failure (< 1 month) History of inflammatory bowel disease Medical patient at bed rest Age 61-74 Arthroscopic surgery Major open surgery (> 45 min) Laparoscopic surgery (> 45 min) Malignancy Confined to bed (> 72 hours) Immobilizing plaster cast Central venous access Age >= 75 History of VTE Family history of VTE Factor V Leiden Prothrombin [id number] Lupus anticoagulant Anticardiolipin antibodies Elevated serum homocysteine Heparin-induced thrombocytopenia Other congenital or acquired thrombophilia Stroke (< 1 month) Elective arthroplasty Hip, pelvis, or leg fracture Acute spinal cord injury (< 1 month) Prophylaxis Regimen Total Risk Factor Score Risk Level Prophylaxis Regimen 0-1 Low Early ambulation 2 Moderate Order ONE of the following: *Sequential Compression Device (SCD) *Heparin 5000 units SQ BID 3-4 Higher Order ONE of the following medications: *Heparin 5000 units SQ TID *Enoxaparin/Lovenox 40 mg SQ daily (WT < 150 kg, CrCl > 30 mL/min) *Enoxaparin/Lovenox 30 mg SQ daily (WT < 150 kg, CrCl > 10-29 mL/min) *Enoxaparin/Lovenox 30 mg SQ BID (WT < 150 kg, CrCl > 30 mL/min) AND/OR *Sequential Compression Device (SCD) 5 or more Highest Order ONE of the following medications: *Heparin 5000 units SQ TID (Preferred with Epidurals) *Enoxaparin/Lovenox 40 mg SQ daily (WT < 150 kg, CrCl > 30 mL/min) *Enoxaparin/Lovenox 30 mg SQ daily (WT < 150 kg, CrCl > 10-29 mL/min) *Enoxaparin/Lovenox 30 mg SQ BID (WT < 150 kg, CrCl > 30 mL/min) AND *Sequential Compression Device (SCD) Assessment and Plan Problem List: (1) Fecal impaction in rectum ICD Code: K56.41 - Fecal impaction (2) Renal insufficiency ICD Code: N28.9 - Disorder of kidney and ureter, unspecified Status: Acute (3) Dementia ICD Code: F03.90 - Unspecified dementia without behavioral disturbance Status: Acute Assessment and Plan A/P: 1. Fecal Impaction: Rectal. Outpatient X-ray w/ evidence of Ileus, sent to ER from Rehab for concern for bowel obstruction. CT Abd/Pelvis negative for bowel obstruction, +constipation w/ rectum distended to 8.5cm, images reviewed by me. GI consulted by ER physician, plan is for colonoscopy for disimpaction in am. NPO, IVF, analgesics/antiemetics as needed. 2. Renal Insufficiency: Acute on Chronic. Creatinine 1.84, previously 1.53 on 03/08/17. IVF for hydration, repeat labs in am. 3. Dementia: Severe. At baseline. Resume home medications post-procedure. 4. DVT Prophylaxis: SCD/Teds. 5. Social work for d/c planning as needed. 6. Case discussed w/ ER physician at length Latha Lara MD Jul 28, 2017 23:43
[2017-07-28] MEDS ORDERED: BISACODYL 10 MG SUPP RECTAL PRN (23:45)
[2017-07-28] MEDS ORDERED: SENNOSIDES 8.6 MG TAB PO PRN (23:45)
[2017-07-28] MEDS ORDERED: SODIUM CHLORIDE 0.9% FLUSH 10 ML FLUSH IV FLUSH PRN (23:45)
[2017-07-28] MEDS ORDERED: ACETAMINOPHEN 325 MG TAB PO PRN (23:45)
[2017-07-28] MEDS ORDERED: ONDANSETRON HCL 4 MG/2 ML VIAL IVP PRN (23:45)
[2017-07-28] MEDS ORDERED: LACTULOSE SYRUP 20 GM/30 ML CUP PO PRN (23:45)
[2017-07-28] MEDS ORDERED: MORPHINE SULFATE 4 MG/ML INJ IV PRN ×2 (23:45)
[2017-07-28] MEDS ORDERED: MAGNESIUM HYDROXIDE SUSP 30 ML CUP PO PRN (23:45)
[2017-07-28] MEDS: SODIUM CHLOR 0.9% 1000 ML INJ 1,000 ML IV SCH (23:55)
[2017-07-29 00:48] VITALS: BP 142/78; PULSE 84; RESP 16; O2SAT 99
[2017-07-29 01:46] VITALS: BP 127/80; PULSE 84; RESP 18; TEMP 98.1; O2SAT 98
[2017-07-29 08:35] VITALS: BP 124/86; PULSE 84; RESP 20; TEMP 97.9; O2SAT 96
[2017-07-29 08:51] LABS: AUTOMATED NEUTROPHIL # 3.5 TH/MM3 (1.8-7.7); BASOPHIL # 0.1 TH/MM3 (0-0.2); BASOPHIL % 1.1 % (0.0-2.0); EOSINOPHIL # 0.1 TH/MM3 (0-0.4); EOSINOPHIL % 2.4 % (0.0-4.0); HEMATOCRIT 39.9 % (39.0-51.0); HEMO FLAGS DIFF FINAL; LYMPH % 21.2 % (9.0-44.0); LYMPHOCYTE # 1.2 TH/MM3 (1.0-4.8); MEAN CELL VOLUME 87.2 FL (80.0-100.0); MEAN CORPUSCULAR HEMOGLOBIN 28.5 PG (27.0-34.0); MEAN CORPUSCULAR HGB CONC 32.7 % (32.0-36.0); MONO % 14.7 % (0.0-8.0); NEUT % 60.6 % (16.0-70.0); PLATELET COUNT 229 TH/MM3 (150-450); RED BLOOD COUNT 4.58 MIL/MM3 (4.50-5.90); RED CELL DISTRIBUTION WIDTH 15.9 % (11.6-17.2); WHITE BLOOD COUNT 5.8 TH/MM3 (4.0-11.0)
[2017-07-29 09:15] LABS: ANION GAP 6 MEQ/L (5-15); AST (GOT) 17 U/L (15-37); BICARBONATE 29.4 MEQ/L (21.0-32.0); BLOOD UREA NITROGEN 18 MG/DL (7-18); CHLORIDE 104 MEQ/L (98-107); GLOMERULAR FILTRATION RATE 40 ML/MIN (>89); POTASSIUM 4.5 MEQ/L (3.5-5.1); SODIUM (NA) 139 MEQ/L (136-145)
[2017-07-29 09:16] LABS: ALT (GPT) 21 U/L (12-78)
[2017-07-29 09:19] LABS: ALKALINE PHOSPHATASE 161 U/L (45-117); TOTAL BILIRUBIN ADULT 0.2 MG/DL (0.2-1.0)
--- NOTE | 2017-07-29 09:36 | HHI.PR ---
Subjective Remarks Follow-up for stool impaction. The patient states he is doing well today. When asked about his abdomen he states it's "not too good". When asked to point to the pain he points to the left lower quadrant. He is happy that her electrical design engineer is coming to help the pain. Objective Vitals Vital Signs Date Time Temp Pulse Resp B/P (MAP) Pulse Ox O2 Delivery O2 Flow Rate FiO2 07/29/17 08:35 97.9 84 20 124/86 (99) 96 07/29/17 01:46 98.1 84 18 127/80 (96) 98 07/29/17 00:49 07/29/17 00:48 84 16 142/78 (99) 99 Room Air 07/28/17 20:17 98.4 86 16 141/86 (104) 97 I/O 07/28/17 07/28/17 07/28/17 07/29/17 07/29/17 07/29/17 07:00 15:00 23:00 07:00 15:00 23:00 Intake Total 200 ml 200 ml Balance 200 ml 200 ml Intake Oral 200 ml 200 ml Result Diagram: 07/29/17 0750 07/29/17 0750 Imaging Last Impressions Abdomen/Pelvis CT 07/28/172017 Signed Impressions: Service Date/Time: Friday, July 28, 2017 21:57 - CONCLUSION: 1. Negative for bowel obstruction. 2. Constipation, especially in the rectum which is distended to 8.5 cm. 3. Previous distal esophagectomy and gastric pull-through procedure with herniation of colon and to the lower left chest. Antonio Santos MD Objective Remarks GENERAL: Well-developed well-nourished. In no acute distress. SKIN: Warm and dry. No lesions noted. HEENT: Normocephalic. Pupils equal and round. Mucous membranes pink and moist. CARDIOVASCULAR: Regular rate and rhythm. No murmur appreciated. RESPIRATORY: No accessory muscle use. Clear to auscultation. Breath sounds equal bilaterally. GASTROINTESTINAL: Abdomen soft, mild LLQ TTP, nondistended. Decreased bowel sounds. MUSCULOSKELETAL: No obvious deformities. No clubbing or cyanosis. No edema. NEUROLOGICAL: Awake and alert. No focal neurological deficits. Moves upper and lower extremities spontaneously. Normal speech. PSYCHIATRIC: Pleasantly confused mood and affect; insight and judgment limited. A/P Problem List: (1) Fecal impaction in rectum ICD Code: K56.41 - Fecal impaction Status: Acute (2) Renal insufficiency ICD Code: N28.9 - Disorder of kidney and ureter, unspecified Status: Chronic (3) Dementia ICD Code: F03.90 - Unspecified dementia without behavioral disturbance Status: Chronic Assessment and Plan 67-year-old male with a PMH of Dementia, Anxiety, Depression and Esophageal/ Gastric CA s/p Gastrectomy who was sent from [facility] for eval of possible SBO Fecal Impaction: Rectal. Outpatient X-ray w/ evidence of Ileus, sent to ER from Rehab for concern for bowel obstruction. CT Abd/Pelvis negative for bowel obstruction, +constipation w/ rectum distended to 8.5cm, images reviewed by me. GI consulted by ER physician, plan is for colonoscopy for disimpaction today. NPO, IVF, analgesics/antiemetics as needed. GRICELDA on CKD: Creatinine 1.84, previously 1.53 on 03/08/17. Creatinine improving to 1.72 with IVF, continue. Dementia: Severe. At baseline. Resume home medications post-procedure. DVT Prophylaxis: SCD/Teds. Discharge Planning Follow-up GI recommendations after colonoscopy. Benjamin Rabago Jul 29, 2017 09:36
[2017-07-29] MEDS: DOCUSATE SODIUM 50 MG/SENNA 8.6 MG TAB PO SCH ×2 (09:55→22:05)
[2017-07-29] MEDS: SODIUM CHLORIDE 0.9% FLUSH 10 ML FLUSH IV FLUSH SCH ×2 (09:56→21:00)
[2017-07-29] MEDS: SODIUM CHLOR 0.9% 1000 ML INJ 1,000 ML IV SCH ×2 (09:56→19:43)
[2017-07-29] MEDS: POLYETHYLENE GLYCOL 17 GM PKG PO SCH ×8 (10:00→23:30)
--- NOTE | 2017-07-29 10:58 | PD.CONS ---
HPI History of Present Illness This is a 67 year old male patient with dementia who came to ED because of possible ileus. He has history of esophageal/gastric cancer and had gastrectomy /esophagectomy with pull up anastomosis. He has not moved bowels in 6 days. He complains of pain in the left upper quadrant. He has not been vomiting. He had CT scan yesterday that showed constipation with large fecal stool in the rectal vault. ED physician could not disimpact. Also on CT there was a large hernia with colon in the left chest. Pt cannot give ros because of his reduced mental capacity. He does indicate he likes gatorade. PFSH Past Medical History PMH: Dementia, Anxiety, Depression and Esophageal/Gastric CA s/p Gastrectomy Past Surgical History PAST SURGICAL HISTORY: Partial Gastrectomy Coded Allergies: Sulfa (Sulfonamide Antibiotics) (Unverified Allergy, Unknown, 07/28/17) penicillin G (Unverified Allergy, Unknown, 07/28/17) prochlorperazine (Unverified Allergy, Unknown, 07/28/17) Medications Current Medications Medications (Trade) Dose Ordered Sig/Ludin Route Start Time Stop Time Status Last Admin Sodium Chloride 1,000 ml @ 100 mls/hr Q10H IV 07/28/17 23:43 07/29/17 09:56 (NS Flush) 2 ml UNSCH PRN IV FLUSH 07/28/17 23:45 (NS Flush) 2 ml BID IV FLUSH 07/29/17 09:00 07/29/17 09:56 (Zofran Inj) 4 mg Q6H PRN IVP 07/28/17 23:45 (Tylenol) 650 mg Q6H PRN PO 07/28/17 23:45 (Morphine Inj) 1 mg Q3H PRN IV 07/28/17 23:45 (Morphine Inj) 2 mg Q3H PRN IV 07/28/17 23:45 (Yasmeen-Colace) 1 tab BID PO 07/29/17 09:00 07/29/17 09:55 (Milk Of Magnesia Liq) 30 ml Q12H PRN PO 07/28/17 23:45 07/29/17 01:52 (Senokot) 17.2 mg Q12H PRN PO 07/28/17 23:45 (Dulcolax Supp) 10 mg DAILY PRN RECTAL 07/28/17 23:45 (Lactulose Liq) 30 ml DAILY PRN PO 07/28/17 23:45 07/29/17 01:52 (Abilify) 2 mg DAILY@0600 PO 07/30/17 06:00 (Wellbutrin Sr) 150 mg BID@0900,1600 PO 07/29/17 16:00 (Namenda) 10 mg BID PO 07/29/17 21:00 (Desyrel) 50 mg HS PO 07/29/17 21:00 (Effexor Xr) 150 mg HS PO 07/29/17 21:00 Family History PAST FAMILY HISTORY: Reviewed. No h/o DM or CAD Social History PAST SOCIAL HISTORY: Negative for alcohol, tobacco or drugs. GI Exam Vitals I&O Vital Signs Date Time Temp Pulse Resp B/P (MAP) Pulse Ox O2 Delivery O2 Flow Rate FiO2 07/29/17 08:35 97.9 84 20 124/86 (99) 96 07/29/17 01:46 98.1 84 18 127/80 (96) 98 07/29/17 00:49 07/29/17 00:48 84 16 142/78 (99) 99 Room Air 07/28/17 20:17 98.4 86 16 141/86 (104) 97 I/O 07/28/17 07/28/17 07/28/17 07/29/17 07/29/17 07/29/17 07:00 15:00 23:00 07:00 15:00 23:00 Intake Total 200 ml 200 ml Balance 200 ml 200 ml Intake Oral 200 ml 200 ml Laboratory Test 07/28/17 19:50 07/29/17 07:50 White Blood Count 8.5 TH/MM3 5.8 TH/MM3 Red Blood Count 4.51 MIL/MM3 4.58 MIL/MM3 Hemoglobin 12.5 GM/DL 13.1 GM/DL Hematocrit 39.1 % 39.9 % Mean Corpuscular Volume 86.8 FL 87.2 FL Mean Corpuscular Hemoglobin 27.7 PG 28.5 PG Mean Corpuscular Hemoglobin Concent 32.0 % 32.7 % Red Cell Distribution Width 16.0 % 15.9 % Platelet Count 271 TH/MM3 229 TH/MM3 Mean Platelet Volume 7.0 FL 7.1 FL Neutrophils (%) (Auto) 64.3 % 60.6 % Lymphocytes (%) (Auto) 16.8 % 21.2 % Monocytes (%) (Auto) 16.0 % 14.7 % Eosinophils (%) (Auto) 1.9 % 2.4 % Basophils (%) (Auto) 1.0 % 1.1 % Neutrophils # (Auto) 5.5 TH/MM3 3.5 TH/MM3 Lymphocytes # (Auto) 1.4 TH/MM3 1.2 TH/MM3 Monocytes # (Auto) 1.4 TH/MM3 0.9 TH/MM3 Eosinophils # (Auto) 0.2 TH/MM3 0.1 TH/MM3 Basophils # (Auto) 0.1 TH/MM3 0.1 TH/MM3 CBC Comment DIFF FINAL DIFF FINAL Differential Comment Prothrombin Time 10.4 SEC Prothromb Time International Ratio 0.9 RATIO Blood Urea Nitrogen 23 MG/DL 18 MG/DL Creatinine 1.84 MG/DL 1.72 MG/DL Random Glucose 104 MG/DL 83 MG/DL Total Protein 7.4 GM/DL 6.9 GM/DL Albumin 3.0 GM/DL 3.0 GM/DL Calcium Level 8.8 MG/DL 8.9 MG/DL Alkaline Phosphatase 165 U/L 161 U/L Aspartate Amino Transf (AST/SGOT) 34 U/L 17 U/L Alanine Aminotransferase (ALT/SGPT) 23 U/L 21 U/L Total Bilirubin 0.3 MG/DL 0.2 MG/DL Sodium Level 138 MEQ/L 139 MEQ/L Potassium Level 4.6 MEQ/L 4.5 MEQ/L Chloride Level 104 MEQ/L 104 MEQ/L Carbon Dioxide Level 26.9 MEQ/L 29.4 MEQ/L Anion Gap 7 MEQ/L 6 MEQ/L Estimat Glomerular Filtration Rate 37 ML/MIN 40 ML/MIN Physical Examination HEENT: Pupils round and reactive to light; normocephalic; atraumatic; no jaundice. Throat is clear. NECK: Neck is supple, no JVD, no lymphadenopathy. CHEST: Chest is clear to auscultation and percussion. CARDIAC: Regular rate and rhythm with no murmur gallop or rubs. ABDOMEN: Somewhat tense, but not guarding. Mild tenderness in LUQ. Bowel sounds quiet. No obstructive sounds. EXTREMITIES: No clubbing, cyanosis, or edema. SKIN: Normal; no rash; no jaundice. RE RECORDING MIXER: pleasantly demented. Assessment and Plan Plan Impression: Fairly severe constipation, without obstipation Abdominal hernia with colon in the left chest. No obstruction. Still, this may need to be repaired. Plan: Wash out colon with miralax 2 doses every hour until he is running watery. General surgery should be consulted regarding his hernia. Brock Emery MD Jul 29, 2017 10:58
[2017-07-29 12:44] VITALS: BP 122/68; PULSE 80; RESP 20; TEMP 97.9; O2SAT 96
[2017-07-29] MEDS: buPROPion HCL 150 MG SUSTAINED RELEASE TAB PO SCH (15:58)
[2017-07-29 17:12] VITALS: BP 132/97; PULSE 84; RESP 20; TEMP 97.9; O2SAT 96
[2017-07-29 20:09] VITALS: BP 131/83; PULSE 67; RESP 18; TEMP 98.1; O2SAT 98
--- NOTE | 2017-07-29 21:04 | MB ---
cc: LORIN DSOUZA MD DATE OF CONSULTATION 07/29/17 REASON FOR CONSULTATION Large hiatal hernia after previous esophagectomy. REQUESTING PHYSICIAN Dr. Lara HISTORY OF PRESENT ILLNESS The patient is a 57-year-old male with a history of severe dementia and esophageal cancer status post esophagectomy and gastric pull-through who was admitted to [facility] for abdominal pain. The patient underwent a CT scan which did show a large amount of constipation and stool throughout the colon as well as a large redundant colon. A small area of the transverse colon herniated into the left chest. There was no acute inflammation or signs of obstruction at this point and this was likely a chronically incarcerated incidental finding. General surgery is asked to evaluate the patient. The patient does complain of a left lower quadrant pain, denies any chest pain, shortness of breath. He does also complain of constipation. No nausea, vomiting. The patient does have limited history other than immediate symptoms, has the history of dementia. A lot of the history is obtained from record. REVIEW OF SYSTEMS Conducted review of systems with the patient and again are negative, although this is limited due to the patient's dementia. PAST MEDICAL HISTORY 1. Dementia, 2. Anxiety, depression, 3. Esophageal cancer. PAST SURGICAL HISTORY Esophagectomy Hilo Facundo type ALLERGIES SULFA PENICILLIN PROCHLOPERAZINE MEDICATIONS 1. Abilify. 2. Namenda 3. Desyrel 4. Effexor. 5. Wellbutrin. 6. MiraLax. 7. Zofran. 8. Tylenol. 9. Morphine. FAMILY HISTORY Unable to obtain SOCIAL HISTORY Negative for alcohol, tobacco or drug use per the record. PHYSICAL EXAMINATION VITAL SIGNS: Temperature 97.9 degrees, heart rate 84. Blood pressure 132/97, O2 saturation 96%. The patient in a thin, male in no acute distress. HEENT: Normocephalic atraumatic. Pupils round, react and accommodate to light. Sclerae anicteric. Mucous membranes are moist. NECK: Supple. No JVD. LUNGS: Clear to auscultation bilaterally. Nonlabored breathing pattern. HEART: Regular rate and rhythm. ABDOMEN: Soft, nondistended, nontender to palpation. Surgical scars consistent with an open Hilo Facundo are well-healed and noted. Previous radiation tattoos are noted as well. EXTREMITIES: No clubbing, cyanosis or edema. NEUROLOGIC: The patient is awake, alert, oriented to self only moving all extremities grossly equally. ASSESSMENT/PLAN The patient is a 67-year-old male with history of previous Rudi Facundo with incidental finding likely of transverse colon through his diaphragmatic defect from the gastric pull-through. I feel his symptoms are likely just constipation as the patient has severe constipation throughout his colon which is also very redundant. I agree with current management and recommendations by GI completely. I do feel that this medical management is appropriate for him. If there is no signs of any acute incarceration, obstruction or complications from this hernia at this time and due to the patient's other comorbidities, I would advise watchful waiting and treat this expectantly. The patient can follow with me on a p.r.n. basis. However, there is no surgical intervention needed for this and once the patient's constipation is appropriately medically managed, could likely be discharged. Thank you very much fir this consultation. Please call if needed. I will sign off. MD RADHA Vance/ /7:59 PM /8:49 PM
[2017-07-29] MEDS: VENLAFAXINE HCL XR 75 MG CAP PO SCH (22:04)
[2017-07-29] MEDS: traZODone HCL 50 MG TAB PO SCH (22:05)
[2017-07-29] MEDS: MEMANTINE HCL 10 MG TAB PO SCH (22:05)
[2017-07-30 00:29] VITALS: BP 105/69; PULSE 74; RESP 18; TEMP 98.1; O2SAT 97
[2017-07-30] MEDS: ARIPiprazole 2 MG TAB PO SCH (05:24)
[2017-07-30] MEDS: SODIUM CHLOR 0.9% 1000 ML INJ 1,000 ML IV SCH ×2 (05:45→15:43)
[2017-07-30 05:53] VITALS: BP 133/82; PULSE 74; RESP 18; TEMP 98.1; O2SAT 97
[2017-07-30 08:26] VITALS: BP 116/74; PULSE 90; RESP 20; TEMP 96.9; O2SAT 95
--- NOTE | 2017-07-30 09:02 | HHI.GIFU ---
Subjective Remarks Patient reports he had a bowel movement. He has been very slow to drink his miralax. He also has a large hernia in the left diaphragm with colon up in his chest. His pain is on the left side. He seems more comfortable today. He is complaining of the IV site in his left wrist. Objective Vitals I&O Vital Signs Date Time Temp Pulse Resp B/P (MAP) Pulse Ox O2 Delivery O2 Flow Rate FiO2 07/30/17 08:26 96.9 90 20 116/74 (88) 95 07/30/17 05:53 98.1 74 18 133/82 (99) 97 07/30/17 00:29 98.1 74 18 105/69 (81) 97 07/29/17 20:09 98.1 67 18 131/83 (99) 98 07/29/17 17:12 97.9 84 20 132/97 (109) 96 07/29/17 12:44 97.9 80 20 122/68 (86) 96 I/O 07/29/17 07/29/17 07/29/17 07/30/17 07/30/17 07/30/17 07:00 15:00 23:00 07:00 15:00 23:00 Intake Total 200 ml 200 ml 2200 ml Balance 200 ml 200 ml 2200 ml Intake Oral 200 ml 200 ml 2200 ml # Bowel Movements 1 Physical Exam HEENT: Pupils round and reactive to light; normocephalic; atraumatic; no jaundice. Throat is clear. NECK: Neck is supple, no JVD, no lymphadenopathy. CHEST: Chest is clear to auscultation and percussion. CARDIAC: Regular rate and rhythm with no murmur gallop or rubs. ABDOMEN: Soft, nondistended, nontender; no hepatosplenomegaly; bowel sounds are present in all four quadrants. EXTREMITIES: No clubbing, cyanosis, or edema. SKIN: Normal; no rash; no jaundice. SUPERVISOR TAPING: No focal deficits. Not communicative. Assessment and Plan Plan Impression: Fairly severe constipation, without obstipation Abdominal hernia with colon in the left chest. No obstruction. Still, this may need to be repaired. Plan: Continue with miralax and add dulcolax every hour for 4 double doses today. General surgery should be consulted regarding his hernia. Remove the IV in his left wrist and replace somewhere else. Brock Emery MD Jul 30, 2017 09:02
--- NOTE | 2017-07-30 09:45 | HHI.PR ---
Subjective Remarks Follow up for fecal impaction/severe constipation. The patient is not the best historian. He reports diffuse abdominal pain and "a little bit" of nausea, but no vomiting. He did have 1 large BM last night. He is tolerating oral intake. No fevers/chills. He complains of pain at the left wrist IV site. Denies any other medical complaints at this time. Objective Vitals Vital Signs Date Time Temp Pulse Resp B/P (MAP) Pulse Ox O2 Delivery O2 Flow Rate FiO2 07/30/17 08:26 96.9 90 20 116/74 (88) 95 07/30/17 05:53 98.1 74 18 133/82 (99) 97 07/30/17 00:29 98.1 74 18 105/69 (81) 97 07/29/17 20:09 98.1 67 18 131/83 (99) 98 07/29/17 17:12 97.9 84 20 132/97 (109) 96 07/29/17 12:44 97.9 80 20 122/68 (86) 96 I/O 07/29/17 07/29/17 07/29/17 07/30/17 07/30/17 07/30/17 07:00 15:00 23:00 07:00 15:00 23:00 Intake Total 200 ml 200 ml 2200 ml Balance 200 ml 200 ml 2200 ml Intake Oral 200 ml 200 ml 2200 ml # Bowel Movements 1 Result Diagram: 07/29/17 0750 07/29/17 0750 Imaging Last Impressions Abdomen/Pelvis CT 07/28/172017 Signed Impressions: Service Date/Time: Friday, July 28, 2017 21:57 - CONCLUSION: 1. Negative for bowel obstruction. 2. Constipation, especially in the rectum which is distended to 8.5 cm. 3. Previous distal esophagectomy and gastric pull-through procedure with herniation of colon and to the lower left chest. Antonio Santos MD Objective Remarks GENERAL: Well-nourished, well-developed male patient in NAD. SKIN: Warm and dry. No rash. HEENT: Normocephalic. Atraumatic. Pupils equal and round. Mucous membranes pink and moist. CARDIOVASCULAR: Regular rate and rhythm. S1, S2 noted. No murmur appreciated. RESPIRATORY: No accessory muscle use. Clear to auscultation. Breath sounds equal bilaterally. GASTROINTESTINAL: Abdomen soft, nondistended, mild left sided TTP. Normoactive bowel sounds x4. MUSCULOSKELETAL: No obvious deformities. Extremities without clubbing, cyanosis , or edema. NEUROLOGICAL: Awake and alert. No obvious cranial nerve deficits. Motor grossly within normal limits. PSYCHIATRIC: Pleasantly confused mood and affect; insight and judgment limited. Medications and IVs Current Medications Medications (Trade) Dose Ordered Sig/Ludin Route Start Time Stop Time Status Last Admin Sodium Chloride 1,000 ml @ 100 mls/hr Q10H IV 07/28/17 23:43 07/29/17 09:56 (NS Flush) 2 ml UNSCH PRN IV FLUSH 07/28/17 23:45 (NS Flush) 2 ml BID IV FLUSH 07/29/17 09:00 07/29/17 09:56 (Zofran Inj) 4 mg Q6H PRN IVP 07/28/17 23:45 (Tylenol) 650 mg Q6H PRN PO 07/28/17 23:45 (Morphine Inj) 1 mg Q3H PRN IV 07/28/17 23:45 (Morphine Inj) 2 mg Q3H PRN IV 07/28/17 23:45 (Yasmeen-Colace) 1 tab BID PO 07/29/17 09:00 07/29/17 22:05 (Milk Of Magnesia Liq) 30 ml Q12H PRN PO 07/28/17 23:45 07/29/17 01:52 (Senokot) 17.2 mg Q12H PRN PO 07/28/17 23:45 (Dulcolax Supp) 10 mg DAILY PRN RECTAL 07/28/17 23:45 (Lactulose Liq) 30 ml DAILY PRN PO 07/28/17 23:45 07/29/17 01:52 (Abilify) 2 mg DAILY@0600 PO 07/30/17 06:00 07/30/17 05:24 (Wellbutrin Sr) 150 mg BID@0900,1600 PO 07/29/17 16:00 07/29/17 15:58 (Namenda) 10 mg BID PO 07/29/17 21:00 07/29/17 22:05 (Desyrel) 50 mg HS PO 07/29/17 21:00 07/29/17 22:05 (Effexor Xr) 150 mg HS PO 07/29/17 21:00 07/29/17 22:04 (Miralax) 34 gm Q1HR PO 07/30/17 09:00 07/30/17 14:01 (Dulcolax Ec) 10 mg Q1HR PO 07/30/17 09:00 07/30/17 12:01 A/P Problem List: (1) Fecal impaction in rectum ICD Code: K56.41 - Fecal impaction Status: Acute (2) Renal insufficiency ICD Code: N28.9 - Disorder of kidney and ureter, unspecified Status: Chronic (3) Dementia ICD Code: F03.90 - Unspecified dementia without behavioral disturbance Status: Chronic Assessment and Plan 67-year-old male with a PMH of Dementia, Anxiety, Depression and Esophageal/ Gastric CA s/p Gastrectomy who was sent from [facility] for eval of possible SBO Fecal Impaction/Severe Constipation: Outpatient X-ray w/ evidence of Ileus, sent to ER from Rehab for concern for bowel obstruction. CT Abd/Pelvis negative for bowel obstruction, +constipation w/ rectum distended to 8.5cm, images reviewed by me. GI consulted. Patient started on Miralax and Dulcolax scheduled. Clear liquid diet. Give IVF, analgesics/antiemetics as needed. Abdominal Hernia: General surgery consulted, recommends medical management and close observation, no surgical intervention at this time, outpatient f/up. GRICELDA on CKD: Creatinine 1.84, previously 1.53 on 03/08/17. Creatinine improving to 1.72 with IVF, continue. Dementia: Severe. At baseline. Resume home medications. DVT Prophylaxis: SCD/Teds. Discharge Planning 0940hrs: Discharge pending further clinical improvement. Blanca Hill PA-C Jul 30, 2017 9:45 am
[2017-07-30] MEDS: MEMANTINE HCL 10 MG TAB PO SCH ×2 (10:00→23:05)
[2017-07-30] MEDS: DOCUSATE SODIUM 50 MG/SENNA 8.6 MG TAB PO SCH ×2 (10:00→23:05)
[2017-07-30] MEDS: BISACODYL EC 5 MG TABEC PO SCH ×4 (10:00→16:25)
[2017-07-30] MEDS: SODIUM CHLORIDE 0.9% FLUSH 10 ML FLUSH IV FLUSH SCH ×2 (10:00→21:00)
[2017-07-30] MEDS: POLYETHYLENE GLYCOL 17 GM PKG PO SCH ×6 (10:01→16:24)
[2017-07-30] MEDS: buPROPion HCL 150 MG SUSTAINED RELEASE TAB PO SCH ×2 (10:04→16:25)
[2017-07-30 12:29] VITALS: BP 118/70; PULSE 90; RESP 18; TEMP 97.5; O2SAT 98
[2017-07-30 16:40] VITALS: BP 135/80; PULSE 90; RESP 20; TEMP 96.9; O2SAT 95
[2017-07-30 20:53] VITALS: BP 139/86; PULSE 86; RESP 18; TEMP 98.2; O2SAT 97
[2017-07-30] MEDS: VENLAFAXINE HCL XR 75 MG CAP PO SCH (23:05)
[2017-07-30] MEDS: traZODone HCL 50 MG TAB PO SCH (23:05)
[2017-07-31] VITALS (7 sets, daily range): BP systolic 121–160; BP diastolic 69–95; PULSE 80–88; RESP 17–18; TEMP 97.8–98.5; O2SAT 95–98
[2017-07-31] MEDS: SODIUM CHLOR 0.9% 1000 ML INJ 1,000 ML IV SCH ×2 (01:43→11:43)
[2017-07-31] MEDS: ARIPiprazole 2 MG TAB PO SCH (06:48)
--- NOTE | 2017-07-31 09:55 | HHI.GIFU ---
Subjective Remarks Pt reports he feels better. Nurse reports he had large soft BM yesterday. Uncertain what happened last night. Abdomen is soft. He cannot give good history. We will give more miralax today. Objective Vitals I&O Vital Signs Date Time Temp Pulse Resp B/P (MAP) Pulse Ox O2 Delivery O2 Flow Rate FiO2 07/31/17 07:38 98.3 86 17 127/83 (98) 97 07/31/17 03:10 98.0 86 18 136/87 (103) 97 07/31/17 00:11 98.5 88 18 121/89 (100) 97 07/30/17 20:53 98.2 86 18 139/86 (103) 97 07/30/17 16:40 96.9 90 20 135/80 (98) 95 07/30/17 12:29 97.5 90 18 118/70 (86) 98 I/O 07/30/17 07/30/17 07/30/17 07/31/17 07/31/17 07/31/17 06:59 14:59 22:59 06:59 14:59 22:59 Intake Total 200 ml Balance 200 ml Intake Oral 200 ml # Voids 1 # Bowel Movements 1 1 Physical Exam HEENT: Pupils round and reactive to light; normocephalic; atraumatic; no jaundice. Throat is clear. NECK: Neck is supple, no JVD, no lymphadenopathy. CHEST: Chest is clear to auscultation and percussion. CARDIAC: Regular rate and rhythm with no murmur gallop or rubs. ABDOMEN: Soft, nondistended, nontender; no hepatosplenomegaly; bowel sounds are present in all four quadrants. EXTREMITIES: No clubbing, cyanosis, or edema. SKIN: Normal; no rash; no jaundice. SEATER GRINDER: No focal deficits. Not communicative. Assessment and Plan Plan Impression: Fairly severe constipation, without obstipation. Some results with miralax and dulcolax but I expect more. Abdominal hernia with colon in the left chest. No obstruction. Surgery has evaluated. No surgical intervention planned. Plan: Repeat another six doses of miralax and four dulcolax pills today. Once he is passing watery stools we can stop the miralax. He can be discharged then. Brock Emery MD Jul 31, 2017 09:55
[2017-07-31] MEDS: POLYETHYLENE GLYCOL 17 GM PKG PO SCH ×3 (10:26→13:03)
[2017-07-31] MEDS: DOCUSATE SODIUM 50 MG/SENNA 8.6 MG TAB PO SCH ×2 (10:27→20:24)
[2017-07-31] MEDS: BISACODYL EC 5 MG TABEC PO SCH ×3 (10:27→13:04)
[2017-07-31] MEDS: buPROPion HCL 150 MG SUSTAINED RELEASE TAB PO SCH ×2 (10:27→16:47)
[2017-07-31] MEDS: MEMANTINE HCL 10 MG TAB PO SCH ×2 (10:27→20:23)
[2017-07-31] MEDS: SODIUM CHLORIDE 0.9% FLUSH 10 ML FLUSH IV FLUSH SCH ×2 (10:29→21:00)
--- NOTE | 2017-07-31 11:50 | HHI.PR ---
Subjective Remarks Follow up for fecal impaction/severe constipation. The patient has had 2 large BMs last night and today. He denies any abdominal pain, nausea/vomiting, or diarrhea. Denies fevers/chills. He is tolerating oral intake. He has no other medical complaints to report at this time. Objective Vitals Vital Signs Date Time Temp Pulse Resp B/P (MAP) Pulse Ox O2 Delivery O2 Flow Rate FiO2 07/31/17 11:26 98.0 85 18 131/90 (104) 98 07/31/17 07:38 98.3 86 17 127/83 (98) 97 07/31/17 03:10 98.0 86 18 136/87 (103) 97 07/31/17 00:11 98.5 88 18 121/89 (100) 97 07/30/17 20:53 98.2 86 18 139/86 (103) 97 07/30/17 16:40 96.9 90 20 135/80 (98) 95 07/30/17 12:29 97.5 90 18 118/70 (86) 98 I/O 07/30/17 07/30/17 07/30/17 07/31/17 07/31/17 07/31/17 07:00 15:00 23:00 07:00 15:00 23:00 Intake Total 200 ml Balance 200 ml Intake Oral 200 ml # Voids 1 1 # Bowel Movements 1 1 1 Result Diagram: 07/29/17 0750 07/29/17 0750 Imaging Last Impressions Abdomen/Pelvis CT 07/28/172017 Signed Impressions: Service Date/Time: Friday, July 28, 2017 21:57 - CONCLUSION: 1. Negative for bowel obstruction. 2. Constipation, especially in the rectum which is distended to 8.5 cm. 3. Previous distal esophagectomy and gastric pull-through procedure with herniation of colon and to the lower left chest. Antonio Santos MD Objective Remarks GENERAL: Well-nourished, well-developed male patient in NAD. SKIN: Warm and dry. No rash. HEENT: Normocephalic. Atraumatic. Pupils equal and round. Mucous membranes pink and moist. CARDIOVASCULAR: Regular rate and rhythm. S1, S2 noted. No murmur appreciated. RESPIRATORY: No accessory muscle use. Clear to auscultation. Breath sounds equal bilaterally. GASTROINTESTINAL: Abdomen soft, nondistended, nontender. Normoactive bowel sounds x4. MUSCULOSKELETAL: No obvious deformities. Extremities without clubbing, cyanosis , or edema. NEUROLOGICAL: Awake and alert. No obvious cranial nerve deficits. Motor grossly within normal limits. PSYCHIATRIC: Pleasantly confused mood and affect; insight and judgment limited. Medications and IVs Current Medications Medications (Trade) Dose Ordered Sig/Ludin Route Start Time Stop Time Status Last Admin Sodium Chloride 1,000 ml @ 100 mls/hr Q10H IV 07/28/17 23:43 07/29/17 09:56 (NS Flush) 2 ml UNSCH PRN IV FLUSH 07/28/17 23:45 (NS Flush) 2 ml BID IV FLUSH 07/29/17 09:00 07/31/17 10:29 (Zofran Inj) 4 mg Q6H PRN IVP 07/28/17 23:45 (Tylenol) 650 mg Q6H PRN PO 07/28/17 23:45 (Morphine Inj) 1 mg Q3H PRN IV 07/28/17 23:45 (Morphine Inj) 2 mg Q3H PRN IV 07/28/17 23:45 (Yasmeen-Colace) 1 tab BID PO 07/29/17 09:00 07/31/17 10:27 (Milk Of Magnesia Liq) 30 ml Q12H PRN PO 07/28/17 23:45 07/29/17 01:52 (Senokot) 17.2 mg Q12H PRN PO 07/28/17 23:45 (Dulcolax Supp) 10 mg DAILY PRN RECTAL 07/28/17 23:45 (Lactulose Liq) 30 ml DAILY PRN PO 07/28/17 23:45 07/29/17 01:52 (Abilify) 2 mg DAILY@0600 PO 07/30/17 06:00 07/31/17 06:48 (Wellbutrin Sr) 150 mg BID@0900,1600 PO 07/29/17 16:00 07/31/17 10:27 (Namenda) 10 mg BID PO 07/29/17 21:00 07/31/17 10:27 (Desyrel) 50 mg HS PO 07/29/17 21:00 07/30/17 23:05 (Effexor Xr) 150 mg HS PO 07/29/17 21:00 07/30/17 23:05 A/P Problem List: (1) Fecal impaction in rectum ICD Code: K56.41 - Fecal impaction Status: Acute (2) Renal insufficiency ICD Code: N28.9 - Disorder of kidney and ureter, unspecified Status: Chronic (3) Dementia ICD Code: F03.90 - Unspecified dementia without behavioral disturbance Status: Chronic Assessment and Plan 67-year-old male with a PMH of Dementia, Anxiety, Depression and Esophageal/ Gastric CA s/p Gastrectomy who was sent from [facility] for eval of possible SBO Fecal Impaction/Severe Constipation: Outpatient X-ray w/ evidence of Ileus, sent to ER from Rehab for concern for bowel obstruction. CT Abd/Pelvis negative for bowel obstruction, +constipation w/ rectum distended to 8.5cm, images reviewed by me. GI consulted, started on Miralax and Dulcolax q1h [id number] scheduled. Clear liquid diet. Give IVF, analgesics/antiemetics as needed. GI following, if patient starts passing watery stools, miralax can be stopped and he can be discharged. Abdominal Hernia: General surgery consulted, recommends medical management and close observation, no surgical intervention at this time, outpatient f/up. GRICELDA on CKD: Creatinine 1.84, previously 1.53 on 03/08/17. Creatinine improving to 1.72 with IVF, continue. Dementia: Severe. At baseline. Resume home medications. DVT Prophylaxis: SCD/Teds. Discharge Planning Per GI, patient can be discharge once having watery stools. Hopefully later today. Blanca Hill PA-C Jul 31, 2017 11:50 am
[2017-07-31] MEDS ORDERED: PERI8.6T PO (17:17)
[2017-07-31] MEDS ORDERED: BISA10R RECTAL (17:17)
--- NOTE | 2017-07-31 17:17 | HHI.DCPOC ---
Discharge Care Plan Diagnosis: (1) Fecal impaction in rectum Goals to Promote Your Health * To prevent worsening of your condition and complications * To maintain your health at the optimal level Directions to Meet Your Goals Take your medications as prescribed Follow your dietary instruction Follow activity as directed Keep your appointments as scheduled Take your immunizations and boosters as scheduled If your symptoms worsen call your PCP, if no PCP go to Urgent Care Center or Emergency Room Smoking is Dangerous to Your Health. Avoid second hand smoke Call the 24-hour hour crisis hotline for domestic abuse at Blanca Hill PA-C Jul 31, 2017 5:17 pm
--- NOTE | 2017-07-31 18:21 | HHI.DS ---
Discharge Summary Admission Date Jul 28, 2017 at 11:43 pm Discharge Date: Jul 31, 2017 Admitting Diagnosis Fecal Impaction (1) Fecal impaction in rectum ICD Code: K56.41 - Fecal impaction Status: Acute (2) Renal insufficiency ICD Code: N28.9 - Disorder of kidney and ureter, unspecified Status: Chronic (3) Dementia ICD Code: F03.90 - Unspecified dementia without behavioral disturbance Status: Chronic Procedures None. Brief History - From Admission This is a 67-year-old male with a PMH of Dementia, Anxiety, Depression and Esophageal/Gastric CA s/p Gastrectomy who was sent to the ER from [facility] for eval of possible SBO. Pt had Abd X-ray done as outpatient yesterday which revealed Ileus, sent to ER for possible SBO, no BM for 4-6 days per records. Unable to obtain history from patient due to severe dementia. On arrival, BP 141/86, HR 86, O2 sat 97% on RA, Afebrile. CBC essentially unremarkable. Creatinine 1.84, previously 1.53 on 03/08/17. INR 0.9. CT Abd/ Pelvis negative for bowel obstruction, constipation especially in rectum which is distended to 8.5cm, unable to manually disimpact by ER physician. GI Consulted by ER physician, plan is for Colonoscopy for disimpaction in am. CBC/BMP: 07/29/17 0750 07/29/17 0750 Significant Findings Laboratory Tests Test 07/28/17 19:50 07/29/17 07:50 Hemoglobin 12.5 GM/DL (13.0-17.0) Monocytes (%) (Auto) 16.0 % (0.0-8.0) 14.7 % (0.0-8.0) Monocytes # (Auto) 1.4 TH/MM3 (0-0.9) Blood Urea Nitrogen 23 MG/DL (7-18) Creatinine 1.84 MG/DL (0.60-1.30) 1.72 MG/DL (0.60-1.30) Albumin 3.0 GM/DL (3.4-5.0) 3.0 GM/DL (3.4-5.0) Alkaline Phosphatase 165 U/L (45-117) 161 U/L (45-117) Estimat Glomerular Filtration Rate 37 ML/MIN (>89) 40 ML/MIN (>89) Imaging Last Impressions Abdomen/Pelvis CT 07/28/172017 Signed Impressions: Service Date/Time: Friday, July 28, 2017 21:57 - CONCLUSION: 1. Negative for bowel obstruction. 2. Constipation, especially in the rectum which is distended to 8.5 cm. 3. Previous distal esophagectomy and gastric pull-through procedure with herniation of colon and to the lower left chest. Antonio Santos MD PE at Discharge GENERAL: Well-nourished, well-developed male patient in NAD. SKIN: Warm and dry. No rash. HEENT: Normocephalic. Atraumatic. Pupils equal and round. Mucous membranes pink and moist. CARDIOVASCULAR: Regular rate and rhythm. S1, S2 noted. No murmur appreciated. RESPIRATORY: No accessory muscle use. Clear to auscultation. Breath sounds equal bilaterally. GASTROINTESTINAL: Abdomen soft, nondistended, nontender. Normoactive bowel sounds x4. MUSCULOSKELETAL: No obvious deformities. Extremities without clubbing, cyanosis , or edema. NEUROLOGICAL: Awake and alert. No obvious cranial nerve deficits. Motor grossly within normal limits. PSYCHIATRIC: Pleasantly confused mood and affect; insight and judgment limited. Hospital Course 67-year-old male with a PMH of Dementia, Anxiety, Depression and Esophageal/ Gastric CA s/p Gastrectomy who was sent from [facility] for eval of possible SBO Fecal Impaction/Severe Constipation: Outpatient X-ray w/ evidence of Ileus, sent to ER from Rehab for concern for bowel obstruction. CT Abd/Pelvis negative for bowel obstruction, +constipation w/ rectum distended to 8.5cm, images reviewed by me. GI consulted, started on Miralax and Dulcolax q1h [id number] each scheduled daily. Given clear liquid diet. Given IVF, analgesics/ antiemetics as needed. GI following, if patient starts passing watery stools, miralax can be stopped and he can be discharged. This afternoon patient had 2 watery and very loose stools. He has no abdominal complaints. Symptoms resolved. Will discharge home. Abdominal Hernia: GI requested General surgery evaluation for the hernia possibly contributing to above symptoms, general surgery recommended medical management and close observation, no surgical intervention at this time, outpatient f/up. Pt Condition on Discharge: Stable Discharge Disposition: Discharge to SNF Discharge Time: > 30 minutes Discharge Instructions DIET: Follow Instructions for: Heart Healthy Diet Activities you can perform: Regular-No Restrictions Follow up Referrals: PCP Follow-up - 1 Week with Prashant Perez MD New Medications: Bisacodyl Supp (Bisac-Evac Supp) 10 Mg Supp 10 MG RECTAL DAILY PRN for SEVERE CONSITIPATION, #30 TAB Changed Medications: Sennosides-Docusate Sodium (Yasmeen-Colace) 8.6-50 Mg Tab 2 TAB PO BID PRN for Constipation, #60 TAB 0 Refills (Changed from: 1 TAB; 20) Continued Medications: Aripiprazole (Abilify) 2 Mg Tab 2 MG PO DAILY@0600, #30 TAB 3 Refills Aspirin (Aspirin Low Dose) 81 Mg Chew 81 MG CHEW DAILY for Prevent Blood Clot, #30 TAB 0 Refills Bupropion HCl ER 12 HR (Wellbutrin SR 12 HR) 150 Mg Tab 150 MG PO 1qam,1q4pm for Control Depression, #60 TAB 3 Refills Cholecalciferol (Vitamin D3) 1,000 Unit Cap 1000 UNITS PO DAILY for Nutritional Supplement, #1 BOTTLE 0 Refills Hydrocodone-Acetaminophen ([place]) 7.5-325 mg Tab 1 TAB PO Q6H PRN for PAIN, #60 TAB 0 Refills Memantine (Namenda) 10 Mg Tab 10 MG PO BID for Alzheimer Disease, #60 TAB 3 Refills Multi-Vit/Iron-B Comp-Vit C (Integra) Unknown Strength Cap Unknown Dose Trazodone (Trazodone) 50 Mg Tab 50 MG PO HS for Insomnia, #30 TAB 3 Refills Venlafaxine ER 24 HR (Venlafaxine ER 24 HR) 150 Mg Cap 150 MG PO HS, #30 CAP 4 Refills Blanca Hill PA-C Jul 31, 2017 6:20 pm
[2017-07-31] MEDS: VENLAFAXINE HCL XR 75 MG CAP PO SCH (20:23)
[2017-07-31] MEDS: traZODone HCL 50 MG TAB PO SCH (20:23)
[2017-08-01 01:11] VITALS: BP 103/66; PULSE 104
[2017-08-01] MEDS: SODIUM CHLOR 0.9% 1000 ML INJ 1,000 ML IV SCH (01:17)
[2017-08-01 03:33] VITALS: BP 120/69; PULSE 75; RESP 18; TEMP 98.5; O2SAT 95
[2017-08-01] MEDS: ARIPiprazole 2 MG TAB PO SCH (06:39)
--- NOTE | 2017-08-01 10:14 | HHI.PR ---
Subjective Remarks Follow up for fecal impaction/severe constipation. The patient's discharge was held overnight due to lack of transportation back to his facility. He continues to reports 3 large BMs yesterday. Denies any abdominal pain, nausea/vomiting. He 's tolerating oral intake. He is stable to return to his SNF. Objective Vitals Vital Signs Date Time Temp Pulse Resp B/P (MAP) Pulse Ox O2 Delivery O2 Flow Rate FiO2 08/01/17 03:33 98.5 75 18 120/69 (86) 95 08/01/17 01:11 104 103/66 (78) 07/31/17 23:21 98.2 80 17 140/70 (93) 95 07/31/17 19:18 98.1 85 17 147/69 (95) 95 07/31/17 15:22 97.8 86 17 160/95 (116) 97 07/31/17 11:26 98.0 85 18 131/90 (104) 98 I/O 07/31/17 07/31/17 07/31/17 08/01/17 08/01/17 08/01/17 07:00 15:00 23:00 07:00 15:00 23:00 Output Total 800 ml Balance -800 ml Output Stool Total 800 ml # Voids 1 1 # Bowel Movements 1 1 Result Diagram: 07/29/17 0750 07/29/17 0750 Imaging Last Impressions Abdomen/Pelvis CT 07/28/172017 Signed Impressions: Service Date/Time: Friday, July 28, 2017 21:57 - CONCLUSION: 1. Negative for bowel obstruction. 2. Constipation, especially in the rectum which is distended to 8.5 cm. 3. Previous distal esophagectomy and gastric pull-through procedure with herniation of colon and to the lower left chest. Antonio Santos MD Objective Remarks GENERAL: Well-nourished, well-developed male patient in [facility]. SKIN: Warm and dry. No rash. HEENT: Normocephalic. Atraumatic. Pupils equal and round. Mucous membranes pink and moist. CARDIOVASCULAR: Regular rate and rhythm. S1, S2 noted. No murmur appreciated. RESPIRATORY: No accessory muscle use. Clear to auscultation. Breath sounds equal bilaterally. GASTROINTESTINAL: Abdomen soft, nondistended, nontender. Normoactive bowel sounds x4. MUSCULOSKELETAL: No obvious deformities. Extremities without clubbing, cyanosis , or edema. NEUROLOGICAL: Awake and alert. No obvious cranial nerve deficits. Motor grossly within normal limits. PSYCHIATRIC: Pleasantly confused mood and affect; insight and judgment limited. Procedures None. A/P Problem List: (1) Fecal impaction in rectum ICD Code: K56.41 - Fecal impaction Status: Acute (2) Renal insufficiency ICD Code: N28.9 - Disorder of kidney and ureter, unspecified Status: Chronic (3) Dementia ICD Code: F03.90 - Unspecified dementia without behavioral disturbance Status: Chronic Assessment and Plan 67-year-old male with a PMH of Dementia, Anxiety, Depression and Esophageal/ Gastric CA s/p Gastrectomy who was sent from [facility] for eval of possible SBO Fecal Impaction/Severe Constipation: Outpatient X-ray w/ evidence of Ileus, sent to ER from Rehab for concern for bowel obstruction. CT Abd/Pelvis negative for bowel obstruction, +constipation w/ rectum distended to 8.5cm, images reviewed by me. GI consulted, started on Miralax and Dulcolax q1h [id number] each scheduled daily. Given clear liquid diet. Given IVF, analgesics/ antiemetics as needed. GI following, if patient starts passing watery stools, miralax can be stopped and he can be discharged. This afternoon patient had 3 watery and very loose stools on the day of discharge. He has no abdominal complaints. Symptoms resolved. Will discharge back to SNF. Abdominal Hernia: GI requested General surgery evaluation for the hernia possibly contributing to above symptoms, general surgery recommended medical management and close observation, no surgical intervention at this time, outpatient f/up. Discharge Planning See discharge summary from yesterday. Patient discharged early this morning 08/01 back to SNF. Blanca Hill PA-C Aug 01, 2017 10:14 am
== END 2017-08-01 09:56 | disposition home or self-care (01) ==
LOC: NEDAMB 18:03 → NEDA 23:43 → NEPHCDU 07-29 00:59
PROVIDERS: ADMIT Hospitalist; ATTEND Hospitalist
DX: K56.41 Fecal impaction (principal); N17.9 Acute kidney failure, unspecified; N18.9 Chronic kidney disease, unspecified; F03.90 Unspecified dementia, unspecified severity, without behavioral disturbance, psychotic disturbance, mood disturbance, and anxiety; Q43.8 Other specified congenital malformations of intestine; Z85.01 Personal history of malignant neoplasm of esophagus; Z85.028 Personal history of other malignant neoplasm of stomach; Z90.3 Acquired absence of stomach [part of]
CPT/HCPCS: 74176; 76937; 80053; 85025; 85610; 96360; 96361; 99285; G0378; J7030

== ENCOUNTER 2017-10-14 08:50 | Observation (INO) | payer MEDICARE, OTHER ==
[2017-10-14] VITALS (9 sets, daily range): BP systolic 103–144; BP diastolic 68–88; PULSE 62–83; RESP 13–24; TEMP 96.7–98.6; O2SAT 96–100
[~2017-10-14] VITALS: Ht 170.2 cm; Wt 76.0 kg
[~2017-10-14 08:50] MED LIST changes: -ABIL2TAB2 PO; +ARIP2 PO; -ASPI81CH37 CHEW; +ASPI81CH6 CHEW; +BISA10R RECTAL; +CHOL10008 PO
[2017-10-14] MEDS ORDERED: SODIUM CHLOR 0.9% 1000 ML INJ 1,000 ML IV SCH (09:00)
--- NOTE | 2017-10-14 09:05 | PD ---
HPI Chief Complaint: Altered Mental Status Time Seen by Provider: 08:57 Travel History International Travel<30 days: No Contact w/Intl Traveler<30days: No Traveled to known affect area: No History of Present Illness HPI 67 years old male was brought in from local assisted [facility] mental status. Patient was last seen normal at 8:00 this morning. Patient was a given morning medication. Patient was on oxycodone for pain however has not taken it since 8 days ago. Patient was checked later and was found slumping over his wheelchair this morning. EMS was called. GCS at the scene was 8. GCS Normally was 15. Patient was transferred to ED for evaluation. Patient is in rehabilitation facility for fractured hip. Fracture hip was in February of this year. Medical records from assisted in rehabilitation shows history of dementia. PFSH Past Medical History Asthma: No Blood Disorders: No Anxiety: No Depression: No Heart Rhythm Problems: No Cancer: No Cardiovascular Problems: No High Cholesterol: No Chemotherapy: No Chest Pain: No Congestive Heart Failure: No COPD: No Dementia: Yes Diabetes: No Endocrine: No Genitourinary: No Immune Disorder: No Musculoskeletal: Yes (weak in legs) Neurologic: Yes (weak in legs) Psychiatric: Yes (dementia) Reproductive: No Respiratory: No Radiation Therapy: No Sleep Apnea: No Thyroid Disease: No Past Surgical History Abdominal Surgery: Yes Pacemaker: No Other Surgery: Yes (partial gastrectomy) Social History Alcohol Use: No Tobacco Use: No Substance Use: No Allergies-Medications (Allergen,Severity, Reaction): Coded Allergies: Sulfa (Sulfonamide Antibiotics) (Unverified Allergy, Unknown, 10/14/17) penicillin G (Unverified Allergy, Unknown, 10/14/17) prochlorperazine (Unverified Allergy, Unknown, 10/14/17) Reported Meds & Prescriptions Reported Meds & Active Scripts Active Bisac-Evac Supp (Bisacodyl) 10 Mg Supp 10 Mg RECTAL DAILY PRN Aspirin Low Dose (Aspirin) 81 Mg Chew 81 Mg CHEW DAILY [place] (Hydrocodone-Acetaminophen) 7.5-325 mg Tab 1 Tab PO Q6H PRN Abilify (Aripiprazole) 2 Mg Tab 2 Mg PO DAILY@0600 Trazodone (Trazodone HCl) 50 Mg Tab 50 Mg PO HS Namenda (Memantine) 10 Mg Tab 10 Mg PO BID Venlafaxine ER 24 HR (Venlafaxine HCl) 150 Mg Cap 150 Mg PO HS Reported Senna-Tabs (Sennosides) 8.6 Mg Tab 8.6 Mg PO BID Bupropion HCl 100 Mg Tab 100 Mg PO BID Venlafaxine ER 24 HR (Venlafaxine HCl) 150 Mg Cap 150 Mg PO HS Vitamin D3 (Cholecalciferol) 1,000 Unit Cap 1,000 Units PO DAILY Integra (Multi-Vit/Iron-B Comp-Vit C) Unknown Strength Cap Unknown Dose Review of Systems ROS Limitations: Altered Mental Status Physical Exam Narrative GENERAL: Well-nourished, well-developed patient. SKIN: Focused skin assessment warm/dry. HEAD: Normocephalic. EYES: No scleral icterus. No injection or drainage. Pupils 2 mm equal reactive. NECK: Supple, trachea midline. No JVD or lymphadenopathy. CARDIOVASCULAR: Regular rate and rhythm without murmurs, gallops, or rubs. RESPIRATORY: Breath sounds equal bilaterally. No accessory muscle use. GASTROINTESTINAL: Abdomen soft, non-tender, nondistended. MUSCULOSKELETAL: No cyanosis, or edema. BACK: Nontender without obvious deformity. No CVA tenderness. Neurologic exam: Patient's lethargic and not vocalizing. Patient moves extremity with pain stimuli. Patient does not follow command. Deep tendon reflexes +1 and equal. Negative Babinski. Data Data Last Documented VS Vital Signs Date Time Temp Pulse Resp B/P (MAP) Pulse Ox O2 Delivery O2 Flow Rate FiO2 10/14/17 10:10 62 14 128/88 (101) 100 Nasal Cannula 2.00 Orders Orders Electrocardiogram (10/14/17 08:57) Complete Blood Count With Diff (10/14/17 08:57) Comprehensive Metabolic Panel (10/14/17 08:57) Creatine Kinase (Cpk) (10/14/17 08:57) Troponin I (10/14/17 08:57) B-Type Natriuretic Peptide (10/14/17 08:57) Prothrombin Time / Inr (Pt) (10/14/17 08:57) Act Partial Throm Time (Ptt) (10/14/17 08:57) Blood Culture (10/14/17 08:57) Urinalysis - C+S If Indicated (10/14/17 08:57) D-Dimer (10/14/17 08:57) Thyroid Stimulating Hormone (10/14/17 08:57) Chest, Single Ap (10/14/17 08:57) Ct Brain W/O Iv Contrast(Rout) (10/14/17 08:57) Iv Access Insert/Monitor (10/14/17 08:57) Ecg Monitoring (10/14/17 08:57) Oximetry (10/14/17 08:57) Sodium Chlor 0.9% 1000 Ml Inj (Ns 1000 M (10/14/17 09:00) Lactic Acid (10/14/17 09:02) Ct Pulmonary Angiogram (10/14/17 09:05) Iohexol 350 Inj (Omnipaque 350 Inj) (10/14/17 09:50) Urinary Catheter Insert/Apply (10/14/17 09:51) Labs Laboratory Tests Test 10/14/17 09:03 10/14/17 09:07 10/14/17 10:15 White Blood Count 5.5 TH/MM3 Red Blood Count 3.81 MIL/MM3 Hemoglobin 11.5 GM/DL Hematocrit 34.8 % Mean Corpuscular Volume 91.3 FL Mean Corpuscular Hemoglobin 30.1 PG Mean Corpuscular Hemoglobin Concent 32.9 % Red Cell Distribution Width 16.7 % Platelet Count 308 TH/MM3 Mean Platelet Volume 6.7 FL Neutrophils (%) (Auto) 60.2 % Lymphocytes (%) (Auto) 23.2 % Monocytes (%) (Auto) 13.8 % Eosinophils (%) (Auto) 1.8 % Basophils (%) (Auto) 1.0 % Neutrophils # (Auto) 3.3 TH/MM3 Lymphocytes # (Auto) 1.3 TH/MM3 Monocytes # (Auto) 0.8 TH/MM3 Eosinophils # (Auto) 0.1 TH/MM3 Basophils # (Auto) 0.1 TH/MM3 CBC Comment DIFF FINAL Differential Comment Prothrombin Time 10.7 SEC Prothromb Time International Ratio 1.0 RATIO Activated Partial Thromboplast Time 25.9 SEC D-Dimer Quantitative (PE/DVT) 0.57 MG/L FEU Blood Urea Nitrogen 25 MG/DL Creatinine 1.77 MG/DL Random Glucose 110 MG/DL Total Protein 7.3 GM/DL Albumin 3.1 GM/DL Calcium Level 8.8 MG/DL Alkaline Phosphatase 142 U/L Aspartate Amino Transf (AST/SGOT) 19 U/L Alanine Aminotransferase (ALT/SGPT) 19 U/L Total Bilirubin 0.2 MG/DL Sodium Level 137 MEQ/L Potassium Level 4.5 MEQ/L Chloride Level 106 MEQ/L Carbon Dioxide Level 27.1 MEQ/L Anion Gap 4 MEQ/L Estimat Glomerular Filtration Rate 39 ML/MIN Total Creatine Kinase 63 U/L Troponin I LESS THAN 0.02 NG/ML B-Type Natriuretic Peptide 46 PG/ML Thyroid Stimulating Hormone 3rd Gen 3.060 uIU/ML Lactic Acid Level 1.4 mmol/L Urine Color LIGHT-YELLOW Urine Turbidity CLEAR Urine pH 5.5 Urine Specific [place] 1.012 Urine Protein TRACE mg/dL Urine Glucose (UA) NEG mg/dL Urine Ketones NEG mg/dL Urine Occult Blood NEG Urine Nitrite NEG Urine Bilirubin NEG Urine Urobilinogen LESS THAN 2.0 MG/DL Urine Leukocyte Esterase NEG Urine Transitional Epithelial Cells 0-5 /hpf Microscopic Urinalysis Comment CATH-CULT NOT IND MDM Medical Decision Making Medical Screen Exam Complete: Yes Emergency Medical Condition: Yes Interpretation(s) Last Impressions CT Angiography 10/14/17904 Signed Impressions: Service Date/Time: Saturday, October 14, 2017 09:42 - CONCLUSION: No evidence of pulmonary embolus. Bilateral lower lobe atelectasis unchanged. Post surgical findings the mediastinum and diaphragmatic hernia also unchanged. Richard Seaman MD Head CT 10/14/17856 Signed Impressions: Service Date/Time: Saturday, October 14, 2017 09:11 - CONCLUSION: 1. Severe chronic right maxillary sinusitis unchanged. 2. No acute intracranial findings. Richard Seaman MD Chest X-Ray 10/14/17856 Signed Impressions: Service Date/Time: Saturday, October 14, 2017 09:18 - CONCLUSION: 1. Patchy left lower lobe consolidation versus atelectasis and small left pleural effusion. 2. Postsurgical mediastinal configuration unchanged. Left-sided diaphragmatic hernia again seen. Richard Seaman MD 10:35 AM. CBC within normal limit. BUN 25. Creatinine 1.77. GFR 39. Lactic acid 1.4. Cardiac enzymes are normal. Differential Diagnosis Differential diagnosis including side effect to medications, TIA, CVA, [place], PE, electrolyte imbalance, dehydration. Narrative Course 67 years old male with altered mental status. Normal saline solution 100 cc an hour. O2 2 L nasal cannula. Diagnosis Primary Impression: Altered mental status Qualified Codes: R41.82 - Altered mental status, unspecified Additional Impression: CKD (chronic kidney disease) stage 4, GFR 15-29 ml/min Admitting Information Admitting Physician Requests: Admit Darrel Maloney MD Oct 14, 2017 09:05
[2017-10-14 09:15] LABS: AUTOMATED NEUTROPHIL # 3.3 TH/MM3 (1.8-7.7); BASOPHIL # 0.1 TH/MM3 (0-0.2); EOSINOPHIL # 0.1 TH/MM3 (0-0.4); EOSINOPHIL % 1.8 % (0.0-4.0); HEMATOCRIT 34.8 % (39.0-51.0); HEMO FLAGS DIFF FINAL; LYMPH % 23.2 % (9.0-44.0); LYMPHOCYTE # 1.3 TH/MM3 (1.0-4.8); MEAN CELL VOLUME 91.3 FL (80.0-100.0); MEAN CORPUSCULAR HEMOGLOBIN 30.1 PG (27.0-34.0); MEAN CORPUSCULAR HGB CONC 32.9 % (32.0-36.0); MONO % 13.8 % (0.0-8.0); NEUT % 60.2 % (16.0-70.0); PLATELET COUNT 308 TH/MM3 (150-450); RED BLOOD COUNT 3.81 MIL/MM3 (4.50-5.90); RED CELL DISTRIBUTION WIDTH 16.7 % (11.6-17.2); WHITE BLOOD COUNT 5.5 TH/MM3 (4.0-11.0)
[2017-10-14] MEDS ORDERED: SENN8.6T36 PO (09:27)
[2017-10-14] MEDS ORDERED: BUPR100T4 PO (09:27)
[2017-10-14] MEDS ORDERED: VENL150C39 PO (09:27)
--- NOTE | 2017-10-14 09:28 | RADRPT ---
EXAM DATE/TIME: 10/14/2017 09:11 [facility] COMPARISON: CT BRAIN W/O CONTRAST, March 05, 2017, 2:56. INDICATIONS : Altered mental status. RADIATION DOSE: 37.65 CTDIvol (mGy) MEDICAL HISTORY : Dementia. SURGICAL HISTORY : None. ENCOUNTER: Initial ACUITY: 1 day PAIN SCALE: Non-responsive LOCATION: cranial TECHNIQUE: Multiple contiguous axial images were obtained of the head. Using automated exposure control and adj ustment of the mA and/or kV according to patient size, radiation dose was kept as low as reasonably a chievable to obtain optimal diagnostic quality images. DICOM format image data is available electro nically for review and comparison. FINDINGS: CEREBRUM: The ventricles are normal for age. No evidence of midline shift, mass lesion, hemorrhage or acute in farction. No extra-axial fluid collections are seen. POSTERIOR FOSSA: The cerebellum and brainstem are intact. The 4th ventricle is midline. The cerebellopontine angle i s unremarkable. EXTRACRANIAL: Complete opacification and expansion of the right maxillary sinus is again seen and unchanged. High d ensity material again seen in the right maxillary sinus. SKULL: The calvaria is intact. No evidence of skull fracture. CONCLUSION: 1. Severe chronic right maxillary sinusitis unchanged. 2. No acute intracranial findings. Richard Seaman MD on October 14, 2017 at 9:25 Board Certified Radiologist. This report was verified electronically.
[2017-10-14 09:31] LABS: ALT (GPT) 19 U/L (12-78); ANION GAP 4 MEQ/L (5-15); AST (GOT) 19 U/L (15-37); BICARBONATE 27.1 MEQ/L (21.0-32.0); BLOOD UREA NITROGEN 25 MG/DL (7-18); CHLORIDE 106 MEQ/L (98-107); GLOMERULAR FILTRATION RATE 39 ML/MIN (>89); POTASSIUM 4.5 MEQ/L (3.5-5.1); SODIUM (NA) 137 MEQ/L (136-145)
[2017-10-14 09:33] LABS: APTT (PATIENT) 25.9 SEC (24.3-30.1); PROTHROMBIN TIME - PATIENT 10.7 SEC (9.8-11.6)
--- NOTE | 2017-10-14 09:35 | RADRPT ---
EXAM DATE/TIME: 10/14/2017 09:18 [facility] COMPARISON: CT ABDOMEN & PELVIS W/O CONTRAST, July 28, 2017, 21:57. CHEST SINGLE AP, March 05, 2017, 2:31. INDICATIONS : Alteered mental status. MEDICAL HISTORY : Dementia. Carcinoma, esophageal. SURGICAL HISTORY : Partial gastrectomy ENCOUNTER: Initial ACUITY: 1 day PAIN SCORE: Non-responsive. LOCATION: Bilateral chest FINDINGS: Single AP view of the chest. Configuration of the mediastinum is similar to prior study. Patient is r eportedly status post esophagectomy with gastric pull-through. Postsurgical findings may account for the right perihilar density that is unchanged. Left-sided diaphragmatic hernia again seen. There is i ncreased patchy opacity at the left lung base suggesting atelectasis versus consolidation. Mild blunt ing of the left costophrenic sulcus suggest small pleural effusion. CONCLUSION: 1. Patchy left lower lobe consolidation versus atelectasis and small left pleural effusion. 2. Postsurgical mediastinal configuration unchanged. Left-sided diaphragmatic hernia again seen. Richard Seaman MD on October 14, 2017 at 9:30 Board Certified Radiologist. This report was verified electronically.
[2017-10-14 09:41] LABS: ALKALINE PHOSPHATASE 142 U/L (45-117); TOTAL BILIRUBIN ADULT 0.2 MG/DL (0.2-1.0)
[2017-10-14] MEDS ORDERED: IOHEXOL 350 MG/ML 10 ML VIAL (for RAD DIAG) IVCONTRAST ONE (09:50)
[2017-10-14 09:52] LABS: CREATINE KINASE 63 U/L (39-308)
--- NOTE | 2017-10-14 10:12 | RADRPT ---
EXAM DATE/TIME: 10/14/2017 09:42 [facility] COMPARISON: CT ABDOMEN & PELVIS W/O CONTRAST, July 28, 2017, 21:57. INDICATIONS : Shortness of breath post operative hip surgery. IV CONTRAST: 50 cc Visipaque (iodixanol) IV RADIATION DOSE: 9.25 CTDIvol (mGy) MEDICAL HISTORY : Dementia. SURGICAL HISTORY : Hip, gastric. ENCOUNTER: Initial ACUITY: 1 day PAIN SCALE: 4/10 LOCATION: Bilateral cranial TECHNIQUE: Volumetric scanning of the chest was performed using a pulmonary embolism protocol MIP images were re constructed. Using automated exposure control and adjustment of the mA and/or kV according to patien t size, radiation dose was kept as low as reasonably achievable to obtain optimal diagnostic quality images. DICOM format image data is available electronically for review and comparison. Follow-up recommendations for detected pulmonary nodules are based at a minimum on nodule size and pa tient risk factors according to Fleischner Society Guidelines. FINDINGS: PULMONARY ARTERIES: No filling defects are seen in the pulmonary arteries through the segmental level. LUNGS: Bilateral lower lobe atelectasis is very similar to the prior CT abdomen study of 07/28/2017. The lungs are otherwise clear. PLEURAE: There is no pleural thickening or pleural effusion. MEDIASTINUM: Postsurgical findings consistent with the patient's history of esophagectomy and gastric pull-through . Left-sided diaphragmatic hernia with extension of colon into the chest again seen. MUSCULOSKELETAL: Scoliosis and degenerative findings of the thoracic spine again seen. MISCELLANEOUS: Upper abdomen unremarkable. CONCLUSION: No evidence of pulmonary embolus. Bilateral lower lobe atelectasis unchanged. Post surgical findings the mediastinum and diaphragmatic hernia also unchanged. Richard Seaman MD on October 14, 2017 at 10:06 Board Certified Radiologist. This report was verified electronically.
[2017-10-14 10:35] LABS: BLOOD, URINE NEG (NEG); GLUCOSE,URINE NEG (NEG); KETONE, URINE NEG (NEG); NITRITE,URINE NEG (NEG); PH, URINE 5.5 (5.0-8.5); URINE COLOR LIGHT-YELLOW (YELLW/STRAW)
[2017-10-14 10:39] LABS: COMMENT (UR) CATH-CULT NOT IND; CULTURE IF INDICATED CATH CULTURE NOT IND; TRANSITIONAL EPI CELLS, URINE 0-5 /hpf
[2017-10-14] MEDS ORDERED: NALOXONE HCL 0.4 MG/ML AMP IV PUSH PRN (11:15)
[2017-10-14] MEDS ORDERED: SENNOSIDES 8.6 MG TAB PO PRN (11:15)
[2017-10-14] MEDS ORDERED: SODIUM CHLORIDE 0.9% FLUSH 10 ML FLUSH IV FLUSH PRN (11:15)
[2017-10-14] MEDS ORDERED: BISACODYL 10 MG SUPP RECTAL PRN (11:15)
[2017-10-14] MEDS ORDERED: MAGNESIUM HYDROXIDE SUSP 30 ML CUP PO PRN (11:15)
[2017-10-14] MEDS ORDERED: LACTULOSE SYRUP 20 GM/30 ML CUP PO PRN (11:15)
[2017-10-14] MEDS ORDERED: ACETAMINOPHEN 325 MG TAB PO PRN (11:15)
[2017-10-14] MEDS ORDERED: ONDANSETRON HCL 4 MG/2 ML VIAL IVP PRN (11:15)
[2017-10-14] MEDS: D5-1/2 NS + KCL 10 MEQ INJ 1,000 ML IV SCH (12:00)
--- NOTE | 2017-10-14 13:45 | RADRPT ---
EXAM DATE/TIME: 10/14/2017 13:10 [facility] COMPARISON: CT BRAIN W/O CONTRAST, October 14, 2017, 9:11. INDICATIONS : Altered mental status. MEDICAL HISTORY : None. SURGICAL HISTORY : ORIF HIP ENCOUNTER: Initial ACUITY: 1 day PAIN SCORE: 0/10 LOCATION: cranial TECHNIQUE: Multiplanar, multisequence MRI of the brain was performed without contrast. FINDINGS: Diffusion weighted images demonstrate no evidence for acute infarction. Ventricles and cisterns are o f normal size and configuration. There is circumferential mucosal thickening in the right maxillary s inus with probable fungal colonization bulging medially into the nasal cavity best visualized on CT. No hemorrhage. No masses. CONCLUSION: No evidence for acute infarction. Right maxillary sinus disease. Geronimo Coe MD on October 14, 2017 at 13:42 Board Certified Radiologist. This report was verified electronically.
--- NOTE | 2017-10-14 14:28 | HHI.HP ---
[facility] Prashant Perez MD Admission Diagnosis altered mental status. Chronic kidney disease. Diagnoses: Chief Complaint: Change in mental status Travel History International Travel<30 Days: No Contact w/Intl Traveler <30 Da: No Traveled to Known Affected Are: No History of Present Illness 67-year-old male with a medical history significant for dementia who normally ambulates in a wheelchair at the intermediate facility. The patient was found slumped over in his wheelchair with altered mental status. He was sent to the hospital for altered mental status. The patient has been at the intermediate facility since February of this year after a hip fracture. On my evaluation, the patient is awake and can answer some questions appropriately. However he still confused about his whereabouts. He is not sure what happened or why he is here. Initial head CT unremarkable. His vital signs and labs are unremarkable. His med list does include some sedating medications. Review of Systems ROS Limitations: Clinical Condition Neurologic: DENIES: Headache, Localized weakness Psychiatric: COMPLAINS OF: Confusion Unable to obtain accurate review of systems is to the patient's current condition. Confused. Dementia at baseline. Past Family Social History Past Medical History Anxiety, depression, dementia, esophageal/gastric cancer status post resection. Past Surgical History Partial gastrectomy Reported Medications Reported Meds & Active Scripts Active Bisac-Evac Supp (Bisacodyl) 10 Mg Supp 10 Mg RECTAL DAILY PRN Aspirin Low Dose (Aspirin) 81 Mg Chew 81 Mg CHEW DAILY [place] (Hydrocodone-Acetaminophen) 7.5-325 mg Tab 1 Tab PO Q6H PRN Abilify (Aripiprazole) 2 Mg Tab 2 Mg PO DAILY@0600 Trazodone (Trazodone HCl) 50 Mg Tab 50 Mg PO HS Namenda (Memantine) 10 Mg Tab 10 Mg PO BID Venlafaxine ER 24 HR (Venlafaxine HCl) 150 Mg Cap 150 Mg PO HS Reported Senna-Tabs (Sennosides) 8.6 Mg Tab 8.6 Mg PO BID Bupropion HCl 100 Mg Tab 100 Mg PO BID Venlafaxine ER 24 HR (Venlafaxine HCl) 150 Mg Cap 150 Mg PO HS Vitamin D3 (Cholecalciferol) 1,000 Unit Cap 1,000 Units PO DAILY Integra (Multi-Vit/Iron-B Comp-Vit C) Unknown Strength Cap Unknown Dose Allergies: Coded Allergies: Sulfa (Sulfonamide Antibiotics) (Unverified Allergy, Unknown, 10/14/17) penicillin G (Unverified Allergy, Unknown, 10/14/17) prochlorperazine (Unverified Allergy, Unknown, 10/14/17) Family History Unable to obtain due to the patient's current condition. Social History No tobacco, alcohol use reported Physical Exam Vital Signs Vital Signs Date Time Temp Pulse Resp B/P (MAP) Pulse Ox O2 Delivery O2 Flow Rate FiO2 10/14/17 14:06 97.4 69 22 140/81 (100) 99 10/14/17 11:57 69 14 144/88 (106) 98 Nasal Cannula 2.00 10/14/17 10:10 62 14 128/88 (101) 100 Nasal Cannula 2.00 10/14/17 08:54 78 13 142/78 (99) 96 Physical Exam GENERAL: Elderly male. Very confused. SKIN: No rashes, ecchymoses or lesions. Cool and dry. HEAD: Atraumatic. Normocephalic. No temporal or scalp tenderness. EYES: Pupils equal round and reactive. Extraocular motions intact. No scleral icterus. No injection or drainage. ENT: Nose without drainage. Airway patent. NECK: Trachea midline. No JVD or lymphadenopathy. Supple, nontender, no meningeal signs. CARDIOVASCULAR: Regular rate and rhythm without murmurs, gallops, or rubs. RESPIRATORY: Clear to auscultation. Breath sounds equal bilaterally. No wheezes , rales, or rhonchi. GASTROINTESTINAL: Abdomen soft, non-tender, nondistended. No hepato-splenomegaly , or palpable masses. No guarding. MUSCULOSKELETAL: Extremities without clubbing, cyanosis, or edema. No joint tenderness, effusion, or edema noted. No calf tenderness. Negative Homans sign bilaterally. NEUROLOGICAL: Awake and alert to self only. Confused. Soft speech. Laboratory Laboratory Tests Test 10/14/17 09:03 10/14/17 09:07 10/14/17 10:15 10/14/17 12:27 White Blood Count 5.5 Red Blood Count 3.81 Hemoglobin 11.5 Hematocrit 34.8 Mean Corpuscular Volume 91.3 Mean Corpuscular Hemoglobin 30.1 Mean Corpuscular Hemoglobin Concent 32.9 Red Cell Distribution Width 16.7 Platelet Count 308 Mean Platelet Volume 6.7 Neutrophils (%) (Auto) 60.2 Lymphocytes (%) (Auto) 23.2 Monocytes (%) (Auto) 13.8 Eosinophils (%) (Auto) 1.8 Basophils (%) (Auto) 1.0 Neutrophils # (Auto) 3.3 Lymphocytes # (Auto) 1.3 Monocytes # (Auto) 0.8 Eosinophils # (Auto) 0.1 Basophils # (Auto) 0.1 CBC Comment DIFF FINAL Differential Comment Prothrombin Time 10.7 Prothromb Time International Ratio 1.0 Activated Partial Thromboplast Time 25.9 D-Dimer Quantitative (PE/DVT) 0.57 Blood Urea Nitrogen 25 Creatinine 1.77 Random Glucose 110 Total Protein 7.3 Albumin 3.1 Calcium Level 8.8 Alkaline Phosphatase 142 Aspartate Amino Transf (AST/SGOT) 19 Alanine Aminotransferase (ALT/SGPT) 19 Total Bilirubin 0.2 Sodium Level 137 Potassium Level 4.5 Chloride Level 106 Carbon Dioxide Level 27.1 Anion Gap 4 Estimat Glomerular Filtration Rate 39 Total Creatine Kinase 63 Troponin I LESS THAN 0.02 B-Type Natriuretic Peptide 46 Thyroid Stimulating Hormone 3rd Gen 3.060 Lactic Acid Level 1.4 Urine Color LIGHT-YELLOW Urine Turbidity CLEAR Urine pH 5.5 Urine Specific [place] 1.012 Urine Protein TRACE Urine Glucose (UA) NEG Urine Ketones NEG Urine Occult Blood NEG Urine Nitrite NEG Urine Bilirubin NEG Urine Urobilinogen LESS THAN 2.0 Urine Leukocyte Esterase NEG Urine Transitional Epithelial Cells 0-5 Microscopic Urinalysis Comment CATH-CULT NOT IND Date/Time Source Procedure Growth Status 10/14/17 09:03 Blood Peripheral Aerobic Blood Culture Pending Received 10/14/17 09:03 Blood Peripheral Anaerobic Blood Culture Pending Received Result Diagram: 10/14/1790210/14/17902 Caprini VTE Risk Assessment Caprini VTE Risk Assessment: Mod/High Risk (score >= 2) Caprini Risk Assessment Model Point Value = 1 Point Value = 2 Point Value = 3 Point Value = 5 Age 41-60 Minor surgery BMI > 25 kg/m2 Swollen legs Varicose veins or History of unexplained or recurrent spontaneous Oral contraceptives or hormone replacement Sepsis (< 1 month) Serious lung disease, including pneumonia (< 1 month) Abnormal pulmonary function Acute myocardial infarction Congestive heart failure (< 1 month) History of inflammatory bowel disease Medical patient at bed rest Age 61-74 Arthroscopic surgery Major open surgery (> 45 min) Laparoscopic surgery (> 45 min) Malignancy Confined to bed (> 72 hours) Immobilizing plaster cast Central venous access Age >= 75 History of VTE Family history of VTE Factor V Leiden Prothrombin [id number] Lupus anticoagulant Anticardiolipin antibodies Elevated serum homocysteine Heparin-induced thrombocytopenia Other congenital or acquired thrombophilia Stroke (< 1 month) Elective arthroplasty Hip, pelvis, or leg fracture Acute spinal cord injury (< 1 month) Prophylaxis Regimen Total Risk Factor Score Risk Level Prophylaxis Regimen 0-1 Low Early ambulation 2 Moderate Order ONE of the following: *Sequential Compression Device (SCD) *Heparin 5000 units SQ BID 3-4 Higher Order ONE of the following medications: *Heparin 5000 units SQ TID *Enoxaparin/Lovenox 40 mg SQ daily (WT < 150 kg, CrCl > 30 mL/min) *Enoxaparin/Lovenox 30 mg SQ daily (WT < 150 kg, CrCl > 10-29 mL/min) *Enoxaparin/Lovenox 30 mg SQ BID (WT < 150 kg, CrCl > 30 mL/min) AND/OR *Sequential Compression Device (SCD) 5 or more Highest Order ONE of the following medications: *Heparin 5000 units SQ TID (Preferred with Epidurals) *Enoxaparin/Lovenox 40 mg SQ daily (WT < 150 kg, CrCl > 30 mL/min) *Enoxaparin/Lovenox 30 mg SQ daily (WT < 150 kg, CrCl > 10-29 mL/min) *Enoxaparin/Lovenox 30 mg SQ BID (WT < 150 kg, CrCl > 30 mL/min) AND *Sequential Compression Device (SCD) Assessment and Plan Problem List: (1) Acute encephalopathy ICD Code: G93.40 - Encephalopathy, unspecified (2) Dementia ICD Code: F03.90 - Unspecified dementia without behavioral disturbance Status: Chronic (3) Renal insufficiency ICD Code: N28.9 - Disorder of kidney and ureter, unspecified Status: Chronic (4) Anxiety and depression ICD Code: F41.9 - Anxiety disorder, unspecified; F32.9 - Major depressive disorder, single episode, unspecified Status: Acute Assessment and Plan 67-year-old male with history of dementia presents with altered mental status. Apparently the patient normally uses a wheelchair because was found slumped over in the chair with altered mental status. He is more awake since arriving to the hospital. Per review of his med list, he is on no diffuse sedating medications. Acute encephalopathy: Could be medication related. To rule out stroke. Head CT unremarkable - MRI ordered - Continue serial neuro checks. Hold Trazodone, [place], and Bupropion. Monitor response. - History of dementia at baseline. Continue Namenda - Continue daily Aspirin Chronic kidney disease: - At baseline. Continue to monitor - Gentle IVF Discussed Condition With ED physician Steven Ji MD Oct 14, 2017 14:28
[2017-10-14 16:01] LABS: CREATINE KINASE 111 U/L (39-308)
--- NOTE | 2017-10-14 16:08 | EKG ---
Date Performed: 10/14/2017 Time Performed: 08:55:14 PTAGE: 67 years EKG: Sinus rhythm Nonspecific inferior T wave changes Compared to previous tracing, inferior T wave changes are new NO RMAL ECG PREVIOUS TRACING : 03/05/2017 02.00 DOCTOR: Prashant Adams Interpretating Date/Time 10/14/2017 16:06:42
[2017-10-14] MEDS: HEPARIN SODIUM - SQ 10,000 UNITS/ML VIAL SQ SCH ×2 (16:27→23:52)
[2017-10-14 22:46] LABS: CREATINE KINASE 63 U/L (39-308)
[2017-10-14] MEDS: MEMANTINE HCL 10 MG TAB PO SCH (23:52)
[2017-10-14] MEDS: SENNOSIDES 8.6 MG TAB PO SCH (23:52)
[2017-10-14] MEDS: SODIUM CHLORIDE 0.9% FLUSH 10 ML FLUSH IV FLUSH SCH (23:52)
[2017-10-15] VITALS (10 sets, daily range): BP systolic 111–134; BP diastolic 63–80; PULSE 85–104; RESP 16–22; TEMP 97.3–98.5; O2SAT 94–99
[2017-10-15] MEDS: D5-1/2 NS + KCL 10 MEQ INJ 1,000 ML IV SCH ×3 (00:07→18:00)
[2017-10-15] MEDS: ARIPiprazole 2 MG TAB PO SCH (06:21)
[2017-10-15 07:12] LABS: AUTOMATED NEUTROPHIL # 4.5 TH/MM3 (1.8-7.7); BASOPHIL % 0.7 % (0.0-2.0); EOSINOPHIL # 0.1 TH/MM3 (0-0.4); EOSINOPHIL % 1.8 % (0.0-4.0); HEMATOCRIT 35.2 % (39.0-51.0); HEMO FLAGS DIFF FINAL; LYMPH % 18.4 % (9.0-44.0); LYMPHOCYTE # 1.3 TH/MM3 (1.0-4.8); MEAN CELL VOLUME 91.1 FL (80.0-100.0); MEAN CORPUSCULAR HEMOGLOBIN 28.9 PG (27.0-34.0); MEAN CORPUSCULAR HGB CONC 31.8 % (32.0-36.0); MONO % 15.6 % (0.0-8.0); NEUT % 63.5 % (16.0-70.0); PLATELET COUNT 288 TH/MM3 (150-450); RED BLOOD COUNT 3.86 MIL/MM3 (4.50-5.90); RED CELL DISTRIBUTION WIDTH 16.7 % (11.6-17.2)
[2017-10-15 07:36] LABS: BICARBONATE 24.1 MEQ/L (21.0-32.0); POTASSIUM 4.4 MEQ/L (3.5-5.1)
[2017-10-15] MEDS: SODIUM CHLORIDE 0.9% FLUSH 10 ML FLUSH IV FLUSH SCH ×2 (09:00→20:39)
[2017-10-15] MEDS: MEMANTINE HCL 10 MG TAB PO SCH ×2 (09:04→20:40)
[2017-10-15] MEDS: SENNOSIDES 8.6 MG TAB PO SCH ×2 (09:05→20:40)
[2017-10-15] MEDS: CHOLECALCIFEROL (VIT D3) 1000 UNIT TAB PO SCH (09:05)
[2017-10-15] MEDS: ASPIRIN 81 MG CHEW TAB CHEW SCH (09:05)
--- NOTE | 2017-10-15 12:18 | HHI.PR ---
Subjective Remarks Follow up on patient with AMS, dementia. Patient seen and examined. Patient is confused, oriented to self only. He states repetitively "I blacked out". He is a very poor historian. He is unable to provide me with any meaningful past medical history. He complains of frontal headache, slurred speech ( although he is speaking without any appreciable slurring at this time), vision changes that he describes as "moving in and out", fever, chills and cough. He also endorses right lower extremity weakness which he states is new. He denies any chest pain or shortness of breath. He denies any chest pain or dyspnea. He denies any nausea, vomiting or abdominal pain. Discussed with Maria R CASTILLO, patient appears more responsive to her today. Eating well. Ambulating in the rahman with PT. Objective Vitals Vital Signs Date Time Temp Pulse Resp B/P (MAP) Pulse Ox O2 Delivery O2 Flow Rate FiO2 10/15/17 09:11 104 117/64 (81) 113/63 (80) 10/15/17 08:00 87 10/15/17 07:25 97.6 85 22 127/77 (94) 96 10/15/17 04:08 88 10/15/17 03:13 98.3 89 16 111/68 (82) 94 10/15/17 00:02 89 10/14/17 23:12 98.6 83 17 103/72 (82) 97 10/14/17 20:02 76 10/14/17 19:47 98.4 77 17 125/68 (87) 98 10/14/17 15:57 96.7 64 24 136/83 (100) 96 10/14/17 14:06 97.4 69 22 140/81 (100) 99 10/14/17 13:45 63 10/14/17 11:57 69 14 144/88 (106) 98 Nasal Cannula 2.00 I/O 10/14/17 10/14/17 10/14/17 10/15/17 10/15/17 10/15/17 07:00 15:00 23:00 07:00 15:00 23:00 Intake Total 600 ml Output Total 500 ml Balance 100 ml Intake Oral 100 ml IV Total 500 ml Output Urine Total 500 ml # Bowel Movements 2 Result Diagram: 10/15/17 0600 10/15/17 0600 Imaging Last Impressions Brain MRI 10/14/17 1043 Signed Impressions: Service Date/Time: Saturday, October 14, 2017 13:10 - CONCLUSION: No evidence for acute infarction. Right maxillary sinus disease. Geronimo Coe MD CT Angiography 10/14/17 0905 Signed Impressions: Service Date/Time: Saturday, October 14, 2017 09:42 - CONCLUSION: No evidence of pulmonary embolus. Bilateral lower lobe atelectasis unchanged. Post surgical findings the mediastinum and diaphragmatic hernia also unchanged. Richard Seaman MD Head CT 10/14/17 0857 Signed Impressions: Service Date/Time: Saturday, October 14, 2017 09:11 - CONCLUSION: 1. Severe chronic right maxillary sinusitis unchanged. 2. No acute intracranial findings. Richard Seaman MD Chest X-Ray 10/14/1757 Signed Impressions: Service Date/Time: Saturday, October 14, 2017 09:18 - CONCLUSION: 1. Patchy left lower lobe consolidation versus atelectasis and small left pleural effusion. 2. Postsurgical mediastinal configuration unchanged. Left-sided diaphragmatic hernia again seen. Richard Seaman MD Medications and IVs Current Medications Medications (Trade) Dose Ordered Sig/Ludin Route Start Time Stop Time Status Last Admin (Abilify) 2 mg DAILY@0600 PO 10/15/17 06:00 10/15/17 06:21 (Aspirin Chew) 81 mg DAILY CHEW 10/15/17 09:00 10/15/17 09:05 (Vitamin D3) 1,000 units DAILY PO 10/15/17 09:00 10/15/17 09:05 (Namenda) 10 mg BID PO 10/14/17 21:00 10/15/17 09:04 (Senokot) 8.6 mg BID PO 10/14/17 21:00 10/15/17 09:05 (NS Flush) 2 ml UNSCH PRN IV FLUSH 10/14/17 11:15 (NS Flush) 2 ml BID IV FLUSH 10/14/17 21:00 10/14/17 23:52 (Tylenol) 650 mg Q4H PRN PO 10/14/17 11:15 (Zofran Inj) 4 mg Q6H PRN IVP 10/14/17 11:15 (Heparin Inj) 5,000 units Q12H SQ 10/14/17 12:00 10/14/17 23:52 (Narcan Inj) 0.4 mg UNSCH PRN IV PUSH 10/14/17 11:15 (Milk Of Magnesia Liq) 30 ml Q12H PRN PO 10/14/17 11:15 (Senokot) 17.2 mg Q12H PRN PO 10/14/17 11:15 (Dulcolax Supp) 10 mg DAILY PRN RECTAL 10/14/17 11:15 (Lactulose Liq) 30 ml DAILY PRN PO 10/14/17 11:15 Potassium Chloride/Dextrose/ Sod Cl 1,000 ml @ 100 mls/hr Q10H IV 10/14/17 12:00 10/15/17 00:07 (Vibramycin) 100 mg BID PO 10/15/17 13:00 10/22/17 12:59 A/P Assessment and Plan 67yo male with PMHX of dementia, CKD stage IV, recent ORIF left hip s/p fall admitted with AMS. AMS Syncope/near syncopal episode - uncertain etiology, ?dehydration, medication side effect, TIA/CVA, seizure activity, worsening dementia - appears patient has returned to baseline - reviewed previous medical record, per ED note in February patient with multiple witnessed syncopal episodes and bowel incontinence - CT head shows severe chronic right maxillary sinusitis - MRI brain shows right maxillary sinus disease, no e/o acute infarct. Begin Doxycycline 100mg BID. - CTA negative for PE - CXR personally reviewed showing patchy left lower lobe consolidation vs atelectasis and small left pleural effusion. Patient has no symptoms of pneumonia. IS ordered, encourage hourly use. - UA negative for infection. D/C luis catheter. - cardiac enzymes neg x 3 - Continue to hold sedating medications - obtain orthostatic BP measurements - obtain echocardiogram, EEG and carotid dopplers - obtain RPR and B12, B1 level - Consult Neurology, appreciate recommendations - continuous cardiac monitoring Dementia - Continue on home dose of Namenda Recent left hip fracture s/p ORIF 03/05/17 - continue participation with PT CKD stage IV - creatinine 1.45, GFR 49. Appears to be at baseline. - Avoid nephrotoxic agents - monitor as indicated DVT prophylaxis - Heparin sq Discussed with nursing staff, patient and Dr. Wellington Attending Statement The exam, history, and the medical decision-making described in the above note were completed with the assistance of the mid-level provider. I reviewed and agree with the findings presented. I attest that I had a [id number] encounter with the patient on the same day, and personally performed and documented my assessment and findings in the medical record. Appreciate seen and examined he is not oriented to anything except his name He looks comfortable in no acute distress denied pain, he was unable to know the month or year the president or the place Is about to get 2-D echo the heart I personally reviewed MRI report no acute ischemia or other intracranial pathology Possible progressive dementia, I will consult neurology for dementia workup GENERAL: This is a frail elderly patient in no acute distress SKIN: No rashes, warm and dry HEAD: Atraumatic. Normocephalic. EYES: Pupils equal round and reactive. Extraocular motions intact. No scleral icterus. ENT: Nose without bleeding, or drainage, Airway patent. NECK: Trachea midline. Supple CARDIOVASCULAR: Regular rate and rhythm without murmurs, gallops, or rubs. RESPIRATORY: Fair air entry bilaterally. No wheezes, rales, or rhonchi. GASTROINTESTINAL: Abdomen soft, non-tender, nondistended. Positive bowel sounds MUSCULOSKELETAL: Extremities without clubbing, cyanosis, or edema. Pedal pulses appreciated NEUROLOGICAL: Awake and alert confused, moves all extremity. Normal speech.no focal neurological deficit Antoinette Casper Oct 15, 2017 12:18 Geoffrey Wellington MD Oct 15, 2017 13:55
[2017-10-15] MEDS: HEPARIN SODIUM - SQ 10,000 UNITS/ML VIAL SQ SCH ×2 (14:19→21:45)
--- NOTE | 2017-10-15 14:24 | RADRPT ---
EXAM DATE/TIME: 10/15/2017 13:28 [facility] COMPARISON: No previous studies available for comparison. INDICATIONS : Syncope. MEDICAL HISTORY : Dementia. SURGICAL HISTORY : Gastric surgery. Right hip replacement. ENCOUNTER: Initial ACUITY: 1 day PAIN SCORE: 0/10 LOCATION: Bilateral neck PEAK SYSTOLIC VELOCITIES (cm/sec): ICA/CCA RATIO: Right: 1.1 Left: 1.2 ICA: Right: 80.9 Left: 88.6 CCA: Right: 74.3 Left: 75.9 ECA: Right: 74.3 Left: 72.1 VERTEBRAL: Right: 50.3 antegrade Left: 36.3 antegrade Elevated flow velocities and ICA/CCA ratios have been found to correlate with increased degrees of vessel stenosis, calculated as percentage of diameter relative to a normal segment of distal ICA/CCA FINDINGS: RIGHT CAROTID: No significant stenosis is visualized. The waveforms are within normal limits. LEFT CAROTID: No significant stenosis is visualized. The waveforms are within normal limits. VERTEBRAL ARTERIES: Antegrade flow is seen in both vertebral arteries. MISCELLANEOUS: None. CONCLUSION: No evidence of hemodynamically significant carotid stenosis. Richard Seaman MD on October 15, 2017 at 14:23 Board Certified Radiologist. This report was verified electronically.
--- NOTE | 2017-10-15 15:48 | ECHRPT ---
Indication: CVA/TIA CONCLUSIONS Normal left ventricular size. Wall thickness is measured at the upper limits of normal. The left ventricular systolic function is low normal with an estimated ejection fraction in the rang e of 50- 55%. Moderate mitral valve regurgitation. Aortic valve sclerosis is present. Moderate aortic valve regurgitation. A small pleural effusion is noted. BP: / HR: Rhythm: MEASUREMENTS (Male / Female) Normal Values Technical Quality:Good 2D ECHO LV Diastolic Diameter PLAX 4.6 cm 4.2 - 5.9 / 3.9 - 5.3 cm LV Systolic Diameter PLAX 3.5 cm IVS Diastolic Thickness 0.8 cm 0.6 - 1.0 / 0.6 - 0.9 cm LVPW Diastolic Thickness 0.7 cm 0.6 - 1.0 / 0.6 - 0.9 cm LV Relative Wall Thickness 0.3 RV Internal Dim ED PLAX 2.0 cm LA Systolic Diameter LX 3.7 cm 3.0 - 4.0 / 2.7 - 3.8 cm DOPPLER AV Peak Velocity 193.0 cm/s AV Peak Gradient 14.9 mmHg LVOT Peak Velocity 132.0 cm/s LVOT Peak Gradient 7.0 mmHg MR Peak Velocity 516.0 cm/s MR Peak Gradient 106.5 mmHg Mitral E Point Velocity 76.0 cm/s Mitral A Point Velocity 104.0 cm/s Mitral E to A Ratio 0.7 TR Peak Velocity 208.0 cm/s TR Peak Gradient 17.3 mmHg Right Atrial Pressure 10.0 mmHg Pulmonary Artery Systolic Pressu 27.3 mmHg Right Ventricular Systolic Press 27.3 mmHg FINDINGS LEFT VENTRICLE Doppler parameters are consistent with impaired left ventricular relaxtion (grade 1 diastolic dysfun ction). Normal left ventricular size. Wall thickness is measured at the upper limits of normal. The left ventricular systolic function is low normal with an estimated ejection fraction in the rang e of 50- 55%. RIGHT VENTRICLE Normal right ventricular size and systolic function. LEFT ATRIUM The left atrial size is normal. RIGHT ATRIUM The right atrial size is normal. ATRIAL SEPTUM Normal atrial septal thickness without atrial level shunting by limited color doppler interrogation. AORTA The aortic root and proximal ascending aorta are normal in size on limited imaging. MITRAL VALVE Moderate mitral valve regurgitation. AORTIC VALVE Aortic valve sclerosis is present. Moderate aortic valve regurgitation. TRICUSPID VALVE Structurally normal tricuspid valve. No tricuspid valve stenosis or regurgitation. PULMONARY VALVE No pulmonary valve regurgitation or stenosis. VESSELS The inferior vena cava is normal in size. PERICARDIUM A small pleural effusion is noted. Kota Gustafson MD (Electronically Signed) Final Date:15 October 2017 15:46
[2017-10-15] MEDS: DOXYCYCLINE HYCLATE 100 MG CAP PO SCH ×2 (16:04→21:45)
--- NOTE | 2017-10-15 18:36 | MB ---
cc: SHWETA GEORGE M.D. DATE OF CONSULTATION: 10/15/2017. HISTORY OF PRESENT ILLNESS: A 67-year-old right-handed man with hypertension, non-insulin diabetes, peptic ulcer disease. He has had daily headaches bitemporal for the last four years he tells me. He says he just passed out a few minutes ago and does not remember come into the hospital. Evidently his memory is not very good in general. He has never been seen by neurology before here. He was admitted yesterday with a history of dementia. He ambulates in a wheelchair in a [facility] facility. He was found slumped over in his wheelchair with change in mental status. In February of this year, he had a hip fracture. According to the emergency room notes, he was doing okay at eight o'clock this morning and was given oxycodone for pain, which he had not taken for eight days and then when he was found later he was found slumped over in his wheelchair. His Bianka Coma Score was 8. SOCIAL HISTORY: Not a smoker or a drinker. He lives by himself in [facility]. FAMILY HISTORY: Negative for cancer, seizure or stroke. PAST MEDICAL HISTORY: 1. Anxiety. 2. Depression. 3. Dementia. 4. Esophageal gastric cancer. MEDICATIONS: He is on: 1. Bisacodyl. 2. Aspirin 81. 3. Elmo. 4. Abilify 2 milligrams a day. 5. Trazodone. 6. Namenda 10 twice a day. 7. Venlafaxine 150. 8. Senna tabs. 9. Wellbutrin 100 milligrams twice a day. 10. Integra. ALLERGIES: 1. SULFA. 2. PENICILLIN G. 3. PROCHLORPERAZINE. PHYSICAL EXAMINATION: VITAL SIGNS: On exam, afebrile, 90, 22, 122/76. NECK: There were no carotid bruits. HEART: Regular rhythm. I do not detect a murmur. NEUROLOGICAL EXAMINATION: Pupils are equal. Visual parra are full. Face is symmetric. Extraocular movements intact without nystagmus. Tongue was midline. There is no drift. He had normal strength in the upper and lower extremities bilaterally. DTRs are trace throughout. Toes are downgoing bilaterally. Pin prick is intact throughout. He is not ataxic on [id number]. He knows he lives in [place] in [facility]. He does not know the year or the month. He follows commands well. He is not a good historian. LABORATORY DATA: CBC was essentially normal. Basic metabolic profile: creatinine 1.45,, otherwise normal. His troponin was negative. CPK normal. B12 normal. Albumin 3.1. The urinalysis is negative. IMAGING STUDIES: Carotid ultrasound normal. MRI of the brain shows no evidence for acute infarction on review of the films. It does appear to be normal. Diffusion images are negative. Brain MRI is normal. Echocardiogram is normal. He has been in sinus rhythm here. IMPRESSION: Unclear exactly what caused his change in mental status as far as his decreased level of consciousness, whether it was the narcotic or not, and I would hold off on the narcotic. The Wellbutrin appears to have been stopped, and I would in fact, discontinue his Wellbutrin as that can cause seizures. An EEG can be checked but if that is negative he could be discharged. It appears that he has a history of dementia as he is on Namenda already. I think any further workup besides the EEG is not indicated. He can be discharged if his EEG is negative. MD MIKE Reyes/MIGUEL /5:13 PM /6:24 PM
[2017-10-15] MEDS ORDERED: HEPARIN SODIUM - SQ 10,000 UNITS/ML VIAL SQ SCH (21:00)
[2017-10-16 04:00] VITALS: PULSE 77
--- NOTE | 2017-10-16 05:10 | MG ---
cc: PRASHANT GEORGE M.D. Lab No: [id number] Date: 10/15/2017 Age: Sex: M Race: INDICATIONS A 69-year-old man, slumped over in his chair. History of dementia. MEDICATIONS Abilify. Namenda. FINDINGS The recording shows an 9-10 Hz synchronous and symmetric, 60 microvolt posterior rhythm. Some mild diffuse theta slowing is seen. No epileptiform or seizure activity is noted. Photic stimulation is performed without significant posterior driving. IMPRESSION Some mild diffuse theta slowing consistent with a mild diffuse encephalopathy but otherwise a normal EEG. No evidence for a focal abnormality. No seizure activity was seen. Prashant George MD DJM/SSB /9:51 PM /5:10 AM
[2017-10-16] MEDS: ARIPiprazole 2 MG TAB PO SCH (05:15)
[2017-10-16 08:02] LABS: POTASSIUM 4.8 MEQ/L (3.5-5.1)
[2017-10-16 08:36] VITALS: BP 154/91; PULSE 89; RESP 16; TEMP 97.4; O2SAT 100
[2017-10-16] MEDS: SENNOSIDES 8.6 MG TAB PO SCH (08:38)
[2017-10-16] MEDS: DOXYCYCLINE HYCLATE 100 MG CAP PO SCH (08:38)
[2017-10-16 08:39] VITALS: BP 146/90
[2017-10-16] MEDS: MEMANTINE HCL 10 MG TAB PO SCH (08:39)
[2017-10-16] MEDS: ASPIRIN 81 MG CHEW TAB CHEW SCH (08:39)
[2017-10-16] MEDS: SODIUM CHLORIDE 0.9% FLUSH 10 ML FLUSH IV FLUSH SCH (08:39)
[2017-10-16] MEDS: CHOLECALCIFEROL (VIT D3) 1000 UNIT TAB PO SCH (08:39)
[2017-10-16 08:40] VITALS: BP 149/79
--- NOTE | 2017-10-16 09:58 | HHI.DCPOC ---
Discharge Care Plan Diagnosis: (1) Altered mental status (2) CKD (chronic kidney disease) stage 4, GFR 15-29 ml/min (3) Acute encephalopathy (4) Dementia Goals to Promote Your Health * To prevent worsening of your condition and complications * To maintain your health at the optimal level Directions to Meet Your Goals Please discontinue use of narcotics and other sedating medications Discontinue use of Wellbutrin Take your medications as prescribed Follow your dietary instruction Follow activity as directed Keep your appointments as scheduled Take your immunizations and boosters as scheduled If your symptoms worsen call your PCP, if no PCP go to Urgent Care Center or Emergency Room Smoking is Dangerous to Your Health. Avoid second hand smoke Call the 24-hour hour crisis hotline for domestic abuse at Antoinette Casper Oct 16, 2017 09:58
[2017-10-16] MEDS ORDERED: DOXY100C PO (10:23)
--- NOTE | 2017-10-16 10:28 | HHI.PR ---
Subjective Remarks Follow up on patient with AMS/acute encephalopathy, dementia. Patient seen and examined. Patient appears more alert today. Remains pleasantly confused, oriented to self only. Patient denies any complaints. (+)BM. Patient cleared for discharge from neurologic standpoint if EEG negative. Reviewed EEG which is unremarkable. Objective Vitals Vital Signs Date Time Temp Pulse Resp B/P (MAP) Pulse Ox O2 Delivery O2 Flow Rate FiO2 10/16/17 08:40 149/79 (102) 10/16/17 08:39 146/90 (108) 10/16/17 08:36 97.4 89 16 154/91 (112) 100 10/16/17 04:00 77 10/15/17 23:54 85 10/15/17 23:31 98.5 85 18 134/80 (98) 97 10/15/17 19:30 92 10/15/17 15:42 97.3 90 22 122/76 (91) 99 I/O 10/15/17 10/15/17 10/15/17 10/16/17 10/16/17 10/16/17 07:00 15:00 23:00 07:00 15:00 23:00 Intake Total 600 ml 800 ml Output Total 500 ml 800 ml Balance 100 ml -800 ml 800 ml Intake Oral 100 ml IV Total 500 ml 800 ml Output Urine Total 500 ml 800 ml # Voids 1 # Bowel Movements 2 2 1 Result Diagram: 10/15/17 0600 10/16/17 0610 Imaging Last Impressions Carotid Artery Ultrasound 10/15/17 0000 Signed Impressions: Service Date/Time: Sunday, October 15, 2017 13:28 - CONCLUSION: No evidence of hemodynamically significant carotid stenosis. Richard Seaman MD Brain MRI 10/14/17 1043 Signed Impressions: Service Date/Time: Saturday, October 14, 2017 13:10 - CONCLUSION: No evidence for acute infarction. Right maxillary sinus disease. Geronimo Coe MD CT Angiography 10/14/17 0905 Signed Impressions: Service Date/Time: Saturday, October 14, 2017 09:42 - CONCLUSION: No evidence of pulmonary embolus. Bilateral lower lobe atelectasis unchanged. Post surgical findings the mediastinum and diaphragmatic hernia also unchanged. Richard Seaman MD Head CT 10/14/17 0857 Signed Impressions: Service Date/Time: Saturday, October 14, 2017 09:11 - CONCLUSION: 1. Severe chronic right maxillary sinusitis unchanged. 2. No acute intracranial findings. Richard Seaman MD Chest X-Ray 10/14/1757 Signed Impressions: Service Date/Time: Saturday, October 14, 2017 09:18 - CONCLUSION: 1. Patchy left lower lobe consolidation versus atelectasis and small left pleural effusion. 2. Postsurgical mediastinal configuration unchanged. Left-sided diaphragmatic hernia again seen. Richard Seaman MD Objective Remarks GENERAL: Well-nourished, well-developed patient in NAD. Pleasantly confused. Oriented to self only. Awake and alert. SKIN: Warm and dry. HEAD: Normocephalic. Atraumatic. EYES: EOMI. No scleral icterus. No injection or drainage. ENT: No nasal bleeding or discharge. Mucous membranes pink and moist. NECK: Trachea midline. CARDIOVASCULAR: Regular rate and rhythm. S1, S2 noted. No murmur appreciated. RESPIRATORY: Nonlabored. Clear to auscultation. Breath sounds equal bilaterally. GASTROINTESTINAL: Abdomen soft, non-tender, nondistended. Normoactive bowel sounds x4. MUSCULOSKELETAL: No obvious deformities. Extremities without clubbing, cyanosis , or edema. NEUROLOGICAL: Awake and alert. Able to move all extremities. No focal neurologic findings appreciated. Normal speech. PSYCHIATRIC: Appropriate mood and affect; insight and judgment abnormal. Medications and IVs Current Medications Medications (Trade) Dose Ordered Sig/Ludin Route Start Time Stop Time Status Last Admin (Abilify) 2 mg DAILY@0600 PO 10/15/17 06:00 10/16/17 05:15 (Aspirin Chew) 81 mg DAILY CHEW 10/15/17 09:00 10/16/17 08:39 (Vitamin D3) 1,000 units DAILY PO 10/15/17 09:00 10/16/17 08:39 (Namenda) 10 mg BID PO 10/14/17 21:00 10/16/17 08:39 (Senokot) 8.6 mg BID PO 10/14/17 21:00 10/16/17 08:38 (NS Flush) 2 ml UNSCH PRN IV FLUSH 10/14/17 11:15 (NS Flush) 2 ml BID IV FLUSH 10/14/17 21:00 10/16/17 08:39 (Tylenol) 650 mg Q4H PRN PO 10/14/17 11:15 (Zofran Inj) 4 mg Q6H PRN IVP 10/14/17 11:15 (Narcan Inj) 0.4 mg UNSCH PRN IV PUSH 10/14/17 11:15 (Milk Of Magnesia Liq) 30 ml Q12H PRN PO 10/14/17 11:15 (Senokot) 17.2 mg Q12H PRN PO 10/14/17 11:15 (Dulcolax Supp) 10 mg DAILY PRN RECTAL 10/14/17 11:15 (Lactulose Liq) 30 ml DAILY PRN PO 10/14/17 11:15 (Vibramycin) 100 mg BID PO 10/15/17 13:00 10/22/17 12:59 10/16/17 08:38 (Heparin Inj) 5,000 units Q12H SQ 10/15/17 22:00 10/15/17 21:45 A/P Problem List: (1) Acute encephalopathy ICD Code: G93.40 - Encephalopathy, unspecified (2) Dementia ICD Code: F03.90 - Unspecified dementia without behavioral disturbance Status: Chronic (3) Renal insufficiency ICD Code: N28.9 - Disorder of kidney and ureter, unspecified Status: Chronic (4) Anxiety and depression ICD Code: F41.9 - Anxiety disorder, unspecified; F32.9 - Major depressive disorder, single episode, unspecified Status: Acute Assessment and Plan 67yo male with PMHX of dementia, CKD stage IV, recent ORIF left hip s/p fall admitted with AMS. AMS/acute encephalopathy Syncope/near syncopal episode - uncertain etiology, ?dehydration, medication side effect, worsening dementia - appears patient has returned to baseline - reviewed previous medical record, per ED note in February patient with multiple witnessed syncopal episodes and bowel incontinence - CT head shows severe chronic right maxillary sinusitis - MRI brain shows right maxillary sinus disease, no e/o acute infarct. Begin Doxycycline 100mg BID. - CTA negative for PE - CXR personally reviewed showing patchy left lower lobe consolidation vs atelectasis and small left pleural effusion. Patient has no symptoms of pneumonia. IS ordered, encourage hourly use. - UA negative for infection. - cardiac enzymes neg x 3 - Continue to hold sedating medications especially narcotic medications - orthostatic BP measurements negative - echocardiogram with EF 50-55%, moderate MV and AV regurgitation, AV sclerosis and small pleural effusion. Will have patient follow up with cardiology as outpatient. - EEG showing mild diffuse encephalopathy otherwise normal - Carotid dopplers negative for significant stenosis - RPR pending - B12 level 317 - Consult Neurology, appreciate recommendations. Cleared for discharge from Neurology standpoint if EEG negative with recommendations to discontinue Wellbutrin. Dementia - Continue on home dose of Namenda Recent left hip fracture s/p ORIF 03/05/17 - continue participation with PT CKD stage IV - creatinine stable. Appears to be at baseline. - Avoid nephrotoxic agents - monitor as indicated DVT prophylaxis - Heparin sq Discussed with nursing staff, patient and Antoinette Weiner Oct 16, 2017 10:28
--- NOTE | 2017-10-16 10:28 | HHI.DS ---
Discharge Summary Admission Date Oct 14, 2017 at 11:09 Discharge Date: Oct 16, 2017 Admitting Diagnosis altered mental status. Chronic kidney disease. (1) Altered mental status ICD Code: R41.82 - Altered mental status, unspecified Status: Acute (2) Acute encephalopathy ICD Code: G93.40 - Encephalopathy, unspecified (3) Dementia ICD Code: F03.90 - Unspecified dementia without behavioral disturbance Status: Chronic (4) Renal insufficiency ICD Code: N28.9 - Disorder of kidney and ureter, unspecified Status: Chronic (5) Anxiety and depression ICD Code: F41.9 - Anxiety disorder, unspecified; F32.9 - Major depressive disorder, single episode, unspecified Status: Acute (6) CKD (chronic kidney disease) stage 4, GFR 15-29 ml/min ICD Code: N18.4 - Chronic kidney disease, stage 4 (severe) Status: Acute (7) Pericardial effusion ICD Code: I31.3 - Pericardial effusion (noninflammatory) (8) Aortic valve regurgitation ICD Code: I35.1 - Nonrheumatic aortic (valve) insufficiency (9) Mitral valve regurgitation ICD Code: I34.0 - Nonrheumatic mitral (valve) insufficiency (10) Cardiomyopathy ICD Code: I42.9 - Cardiomyopathy, unspecified (11) Aortic valve sclerosis ICD Code: I35.8 - Other nonrheumatic aortic valve disorders (12) Maxillary sinusitis ICD Code: J32.0 - Chronic maxillary sinusitis Procedures None Brief History - From Admission 67-year-old male with a medical history significant for dementia who normally ambulates in a wheelchair at the care home facility. The patient was found slumped over in his wheelchair with altered mental status. He was sent to the hospital for altered mental status. The patient has been at the care home facility since February of this year after a hip fracture. On my evaluation, the patient is awake and can answer some questions appropriately. However he still confused about his whereabouts. He is not sure what happened or why he is here. Initial head CT unremarkable. His vital signs and labs are unremarkable. His med list does include some sedating medications. CBC/BMP: 11/19/17 0600 10/16/17 0610 Significant Findings Laboratory Tests Test 10/14/17 09:03 10/14/17 09:07 10/14/17 10:15 10/14/17 14:49 Red Blood Count 3.81 MIL/MM3 (4.50-5.90) Hemoglobin 11.5 GM/DL (13.0-17.0) Hematocrit 34.8 % (39.0-51.0) Mean Platelet Volume 6.7 FL (7.0-11.0) Monocytes (%) (Auto) 13.8 % (0.0-8.0) D-Dimer Quantitative (PE/DVT) 0.57 MG/L FEU (0.00-0.50) Blood Urea Nitrogen 25 MG/DL (7-18) Creatinine 1.77 MG/DL (0.60-1.30) Random Glucose 110 MG/DL (74-106) Albumin 3.1 GM/DL (3.4-5.0) Alkaline Phosphatase 142 U/L (45-117) Anion Gap 4 MEQ/L (5-15) Estimat Glomerular Filtration Rate 39 ML/MIN (>89) Troponin I LESS THAN 0.02 NG/ML LESS THAN 0.02 NG/ML Test 10/14/17 21:59 10/15/17 06:00 10/15/17 14:23 10/16/17 06:10 Troponin I LESS THAN 0.02 NG/ML Red Blood Count 3.86 MIL/MM3 (4.50-5.90) Hemoglobin 11.2 GM/DL (13.0-17.0) Hematocrit 35.2 % (39.0-51.0) Mean Corpuscular Hemoglobin Concent 31.8 % (32.0-36.0) Mean Platelet Volume 6.7 FL (7.0-11.0) Monocytes (%) (Auto) 15.6 % (0.0-8.0) Monocytes # (Auto) 1.1 TH/MM3 (0-0.9) Blood Urea Nitrogen 21 MG/DL (7-18) 19 MG/DL (7-18) Creatinine 1.45 MG/DL (0.60-1.30) 1.49 MG/DL (0.60-1.30) Estimat Glomerular Filtration Rate 49 ML/MIN (>89) 47 ML/MIN (>89) Imaging Last Impressions Carotid Artery Ultrasound 10/15/17 0000 Signed Impressions: Service Date/Time: Sunday, October 15, 2017 13:28 - CONCLUSION: No evidence of hemodynamically significant carotid stenosis. Richard Seaman MD Brain MRI 10/14/17 1043 Signed Impressions: Service Date/Time: Saturday, October 14, 2017 13:10 - CONCLUSION: No evidence for acute infarction. Right maxillary sinus disease. Geronimo Ceo MD CT Angiography 10/14/17 0905 Signed Impressions: Service Date/Time: Saturday, October 14, 2017 09:42 - CONCLUSION: No evidence of pulmonary embolus. Bilateral lower lobe atelectasis unchanged. Post surgical findings the mediastinum and diaphragmatic hernia also unchanged. Richard Seaman MD Head CT 10/14/17 0857 Signed Impressions: Service Date/Time: Saturday, October 14, 2017 09:11 - CONCLUSION: 1. Severe chronic right maxillary sinusitis unchanged. 2. No acute intracranial findings. Richard Seaman MD Chest X-Ray 10/14/17 0857 Signed Impressions: Service Date/Time: Saturday, October 14, 2017 09:18 - CONCLUSION: 1. Patchy left lower lobe consolidation versus atelectasis and small left pleural effusion. 2. Postsurgical mediastinal configuration unchanged. Left-sided diaphragmatic hernia again seen. Richard Seaman MD PE at Discharge GENERAL: Well-nourished, well-developed patient in NAD. Pleasantly confused. Oriented to self only. Awake and alert. SKIN: Warm and dry. HEAD: Normocephalic. Atraumatic. EYES: EOMI. No scleral icterus. No injection or drainage. ENT: No nasal bleeding or discharge. Mucous membranes pink and moist. NECK: Trachea midline. CARDIOVASCULAR: Regular rate and rhythm. S1, S2 noted. No murmur appreciated. RESPIRATORY: Nonlabored. Clear to auscultation. Breath sounds equal bilaterally. GASTROINTESTINAL: Abdomen soft, non-tender, nondistended. Normoactive bowel sounds x4. MUSCULOSKELETAL: No obvious deformities. Extremities without clubbing, cyanosis , or edema. NEUROLOGICAL: Awake and alert. Able to move all extremities. No focal neurologic findings appreciated. Normal speech. PSYCHIATRIC: Appropriate mood and affect; insight and judgment abnormal. Pt update on day of discharge Patient seen and examined. Patient denies any acute medical complaints. Cleared for discharge from Neurology standpoint if EEG negative. Reviewed EEG and unremarkable. Discussed with nursing staff. Hospital Course Patient admitted with AMS/acute encephalopathy of uncertain etiology possibly due to medication side effect. Sedating medications were held. CT of the head showed severe chronic right maxillary sinusitis. MRI of the brain revealed only right maxillary sinus disease no evidence of acute infarction. CTA negative for PE. Chest x-ray showed patchy left lower lobe consolidation versus atelectasis and small left pleural effusion. Patient with no symptoms of pneumonia. Patient started on doxycycline for sinus disease. UA negative for infection. Troponins were obtained and were negative 3. Patient monitored on telemetry and remained in sinus rhythm. Orthostatic measurements were negative. Echocardiogram was obtained revealing cardiomyopathy with EF of 50-55%, moderate mitral valve and aortic valve regurgitation, AV sclerosis and small pericardial effusion. Dopplers were negative for significant stenosis. Patient was seen in consultation by neurology who stated patient could be discharged from neurologic standpoint if EEG was negative and recommended discontinuation of Wellbutrin. No further workup recommended. The EEG was obtained and showed mild diffuse encephalopathy otherwise normal. She was stage IV chronic kidney disease, creatinine remained stable and at baseline. Patient discharged back to [facility] facility. Pt Condition on Discharge: Stable Discharge Disposition: Discharge to SNF Discharge Time: > 30 minutes Discharge Instructions DIET: Follow Instructions for: Heart Healthy Diet Activities you can perform: See Additionl Instruction Other Activity Instructions: per PT recommendations Follow up Referrals: Cardiology - 1 Week Neurology - 1 Week with Prashant Alexandra MD PCP Follow-up - 1 Week Psychiatry Adult - 1 Week New Medications: Doxycycline Hyclate (Doxycycline Hyclate) 100 Mg Cap 100 MG PO BID for INFECTION for 6 Days, #12 CAP Continued Medications: Aripiprazole (Abilify) 2 Mg Tab 2 MG PO DAILY@0600, #30 TAB 3 Refills Aspirin (Aspirin Low Dose) 81 Mg Chew 81 MG CHEW DAILY for Prevent Blood Clot, #30 TAB 0 Refills Bisacodyl Supp (Bisac-Evac Supp) 10 Mg Supp 10 MG RECTAL DAILY PRN for SEVERE CONSITIPATION, #30 TAB Cholecalciferol (Vitamin D3) 1,000 Unit Cap 1000 UNITS PO DAILY for Nutritional Supplement, #1 BOTTLE 0 Refills Memantine (Namenda) 10 Mg Tab 10 MG PO BID for Alzheimer Disease, #60 TAB 3 Refills Multi-Vit/Iron-B Comp-Vit C (Integra) Unknown Strength Cap Unknown Dose Sennosides (Senna-Tabs) 8.6 Mg Tab 8.6 MG PO BID for Constipation, #30 TAB 0 Refills Venlafaxine ER 24 HR (Venlafaxine ER 24 HR) 150 Mg Cap 150 MG PO HS, #30 CAP 4 Refills Discontinued Medications: Bupropion HCl (Bupropion HCl) 100 Mg Tab 100 MG PO BID for Control Depression, TAB 0 Refills Hydrocodone-Acetaminophen ([place]) 7.5-325 mg Tab 1 TAB PO Q6H PRN for PAIN, #60 TAB 0 Refills Trazodone (Trazodone) 50 Mg Tab 50 MG PO HS for Insomnia, #30 TAB 3 Refills Venlafaxine ER 24 HR (Venlafaxine ER 24 HR) 150 Mg Cap 150 MG PO HS, #30 CAP 0 Refills Antoinette Casper Oct 16, 2017 10:28
[2017-10-16] MEDS: HEPARIN SODIUM - SQ 10,000 UNITS/ML VIAL SQ SCH (11:36)
[2017-10-16 12:14] VITALS: BP 183/93; PULSE 92; RESP 16; TEMP 98.1; O2SAT 98
[2017-10-16 13:20] VITALS: BP 157/96; PULSE 95
[2017-10-19 23:52] LABS: VITAMIN B6 3.9 ng/mL (2.1-21.7)
== END 2017-10-16 16:31 | disposition home or self-care (01) ==
LOC: NEPE 08:50 → NEDA 11:09 → NEPGCP 13:14
PROVIDERS: ADMIT Hospitalist; ATTEND Hospitalist
DX: G93.40 Encephalopathy, unspecified (principal); F03.90 Unspecified dementia, unspecified severity, without behavioral disturbance, psychotic disturbance, mood disturbance, and anxiety; N18.4 Chronic kidney disease, stage 4 (severe); F32.9 Major depressive disorder, single episode, unspecified; F41.9 Anxiety disorder, unspecified; Z79.899 Other long term (current) drug therapy; J98.11 Atelectasis; K44.9 Diaphragmatic hernia without obstruction or gangrene; J32.0 Chronic maxillary sinusitis; I12.9 Hypertensive chronic kidney disease with stage 1 through stage 4 chronic kidney disease, or unspecified chronic kidney disease; E11.22 Type 2 diabetes mellitus with diabetic chronic kidney disease; K27.9 Peptic ulcer, site unspecified, unspecified as acute or chronic, without hemorrhage or perforation; I31.3 Pericardial effusion (noninflammatory); I35.1 Nonrheumatic aortic (valve) insufficiency; I42.9 Cardiomyopathy, unspecified; I34.0 Nonrheumatic mitral (valve) insufficiency; R51 Headache; R55 Syncope and collapse; R94.2 Abnormal results of pulmonary function studies; R06.02 Shortness of breath
CPT/HCPCS: 51702; 70450; 70551; 71010; 71275; 80048; 80053; 81001; 82550; 82607; 83605; 83880; 84207; 84425; 84443; 84484; 85025; 85379; 85610; 85730; 86592; 87040; 93005; 93306; 93880; 94150; 95819; 96360; 96361; 96372; 97163; 99285; G0378; G8987; G8988; J1644; J3480; J7030; Q9967

== ENCOUNTER 2017-10-28 02:24 | Emergency (ER) | payer MEDICARE, OTHER ==
[~2017-10-28] VITALS: Ht 172.7 cm; Wt 73.0 kg
[~2017-10-28 02:24] MED LIST changes: -BUPR150CR PO; +DOXY100C PO; -HYDR-3288 PO; -PERI8.6T PO; +SENN8.6T36 PO; -TRAZ50TA12 PO
[2017-10-28 02:44] VITALS: BP 180/102; PULSE 93; RESP 16; TEMP 98.6; O2SAT 99
--- NOTE | 2017-10-28 03:10 | RADRPT ---
EXAM DATE/TIME: 10/28/2017 02:50 [facility] COMPARISON: CT ABDOMEN & PELVIS W/O CONTRAST, July 28, 2017, 21:57. CHEST SINGLE AP, October 14, 2017, 9:1 8. INDICATIONS : Nausea and vomiting x 1 day MEDICAL HISTORY : Carcinoma, esophageal. SURGICAL HISTORY : Partial Gastrectomy ENCOUNTER: Initial ACUITY: 1 day PAIN SCORE: 8/10 LOCATION: Bilateral Abdomen FINDINGS: 2 frontal supine views of the abdomen demonstrate air within bowel in a nonobstructive pattern. No or ganomegaly or concerning calcifications are identified. Clips overlie the superior abdomen and inferi or chest. There is stable left lung base opacity related to a herniated colon and there is a small le ft pleural effusion. The left proximal femur hardware is present. CONCLUSION: No acute finding is identified. Lexx Segovia MD on October 28, 2017 at 3:07 Board Certified Radiologist. This report was verified electronically.
[2017-10-28 03:17] LABS: BASOPHIL # 0.1 TH/MM3 (0-0.2); BASOPHIL % 0.8 % (0.0-2.0); EOSINOPHIL # 0.2 TH/MM3 (0-0.4); EOSINOPHIL % 1.7 % (0.0-4.0); HEMATOCRIT 37.4 % (39.0-51.0); HEMO FLAGS DIFF FINAL; LYMPH % 23.7 % (9.0-44.0); LYMPHOCYTE # 2.3 TH/MM3 (1.0-4.8); MEAN CELL VOLUME 88.7 FL (80.0-100.0); MEAN CORPUSCULAR HGB CONC 32.7 % (32.0-36.0); MONO % 12.3 % (0.0-8.0); NEUT % 61.5 % (16.0-70.0); PLATELET COUNT 321 TH/MM3 (150-450); RED BLOOD COUNT 4.22 MIL/MM3 (4.50-5.90); RED CELL DISTRIBUTION WIDTH 16.4 % (11.6-17.2); WHITE BLOOD COUNT 9.7 TH/MM3 (4.0-11.0)
[2017-10-28 03:22] LABS: ALT (GPT) 25 U/L (12-78); ANION GAP 5 MEQ/L (5-15); AST (GOT) 34 U/L (15-37); BICARBONATE 29.9 MEQ/L (21.0-32.0); BLOOD UREA NITROGEN 21 MG/DL (7-18); CHLORIDE 106 MEQ/L (98-107); GLOMERULAR FILTRATION RATE 40 ML/MIN (>89); POTASSIUM 3.9 MEQ/L (3.5-5.1); SODIUM (NA) 141 MEQ/L (136-145)
[2017-10-28 03:25] LABS: ALKALINE PHOSPHATASE 150 U/L (45-117); TOTAL BILIRUBIN ADULT 0.1 MG/DL (0.2-1.0)
--- NOTE | 2017-10-28 04:17 | RADRPT ---
EXAM DATE/TIME: 10/28/2017 03:34 [facility] COMPARISON: CT ABDOMEN & PELVIS W/O CONTRAST, July 28, 2017, 21:57. INDICATIONS : Right lower quadrant pain with nausea and vomiting. Evaluate for obstruction. ORAL CONTRAST: No oral contrast ingested. RADIATION DOSE: 4.61 CTDIvol (mGy) MEDICAL HISTORY : None SURGICAL HISTORY : Left hip surgery. Gastric surgery. ENCOUNTER: Initial ACUITY: 1 day PAIN SCALE: 5/10 LOCATION: Bilateral abdomen TECHNIQUE: Volumetric scanning of the abdomen and pelvis was performed. Using automated exposure control and ad justment of the mA and/or kV according to patient size, radiation dose was kept as low as reasonably achievable to obtain optimal diagnostic quality images. DICOM format image data is available electro nically for review and comparison. FINDINGS: LOWER LUNGS: There is atelectasis and likely trace fluid at the left lung base. LIVER: Homogeneous density without lesion. There is no dilation of the biliary tree. There are multiple cl ips in gallbladder fossa. SPLEEN: Normal size without lesion. PANCREAS: Within normal limits. KIDNEYS: Normal in size and shape. There is no mass, stone, or hydronephrosis. ADRENAL GLANDS: Within normal limits. VASCULAR: There is no aortic aneurysm. There is moderate atherosclerotic disease. BOWEL/MESENTERY: Patient is post esophagectomy with gastric pull up procedure. A portion of the distal transverse and splenic flexure of the colon is present within the left inferior hemithorax related to hernia. The sm all bowel demonstrates no significant abnormality. There is no free air or free fluid. ABDOMINAL WALL: Within normal limits. RETROPERITONEUM: There is no lymphadenopathy. BLADDER: No wall thickening or mass. REPRODUCTIVE: Within normal limits. INGUINAL: There is no lymphadenopathy or hernia. MUSCULOSKELETAL: There is intramedullary mar[place] in the left proximal femur. No acute osseous abnormality is seen. CONCLUSION: 1. No acute finding is identified within the abdomen or pelvis. There are no findings to indicate obs truction. 2. Postsurgical changes indicative of prior esophagectomy and gastric pull up procedure and stable he rnia of the colon. Lexx Segovia MD on October 28, 2017 at 4:11 Board Certified Radiologist. This report was verified electronically.
--- NOTE | 2017-10-28 04:19 | PD ---
HPI Chief Complaint: Abdominal Pain Time Seen by Provider: 02:41 Travel History International Travel<30 days: No Contact w/Intl Traveler<30days: No Traveled to known affect area: No History of Present Illness HPI 67 y/o male presents with abdominal pain and vomiting of unknown duration. [facility] ordered a x-ray today that showed a possible small bowel obstruction and he was sent here for further evaluation. Patient confirms he has pain but cannot give me any other details and history is limited. PFSH Past Medical History Narrative Medical By records Asthma: No Blood Disorders: No Anxiety: No Depression: No Heart Rhythm Problems: No Cancer: No Cardiovascular Problems: No High Cholesterol: No Chemotherapy: No Chest Pain: No Congestive Heart Failure: No COPD: No Dementia: Yes Diabetes: No Endocrine: No Gastrointestinal Disorders: Yes (hx of gastric surgery) Genitourinary: No Immune Disorder: No Musculoskeletal: Yes (,RIGHT HIP REPLACEMENT IN FEBRUARY) Neurologic: Yes (weak in legs) Psychiatric: Yes (dementia) Reproductive: No Respiratory: No Radiation Therapy: No Sleep Apnea: No Thyroid Disease: No Past Surgical History Narrative Surgical By records Abdominal Surgery: Yes Pacemaker: No Other Surgery: Yes (gastric surgery) Social History Alcohol Use: No Tobacco Use: No Substance Use: No Allergies-Medications (Allergen,Severity, Reaction): Coded Allergies: Sulfa (Sulfonamide Antibiotics) (Unverified Allergy, Unknown, 10/14/17) penicillin G (Unverified Allergy, Unknown, 10/14/17) prochlorperazine (Unverified Allergy, Unknown, 10/14/17) Reported Meds & Prescriptions Reported Meds & Active Scripts Active Doxycycline Hyclate 100 Mg Cap 100 Mg PO BID 6 Days Bisac-Evac Supp (Bisacodyl) 10 Mg Supp 10 Mg RECTAL DAILY PRN Aspirin Low Dose (Aspirin) 81 Mg Chew 81 Mg CHEW DAILY Abilify (Aripiprazole) 2 Mg Tab 2 Mg PO DAILY@0600 Namenda (Memantine) 10 Mg Tab 10 Mg PO BID Venlafaxine ER 24 HR (Venlafaxine HCl) 150 Mg Cap 150 Mg PO HS Reported Senna-Tabs (Sennosides) 8.6 Mg Tab 8.6 Mg PO BID Vitamin D3 (Cholecalciferol) 1,000 Unit Cap 1,000 Units PO DAILY Integra (Multi-Vit/Iron-B Comp-Vit C) Unknown Strength Cap Unknown Dose Review of Systems ROS Limitations: Poor Historian Physical Exam Exam Limitations: Poor Historian Narrative GENERAL: Well-nourished, well-developed patient. SKIN: Warm and dry. HEAD: Normocephalic EYES: No injection or drainage. ENT: No nasal drainage noted. NECK: Supple, trachea midline. CARDIOVASCULAR: Regular rate and rhythm RESPIRATORY: No increased effort. No accessory muscle use. GASTROINTESTINAL: Abdomen diffusely tender, nondistended. NEUROLOGICAL: Awake, moves all extremities Data Data Last Documented VS Vital Signs Date Time Temp Pulse Resp B/P (MAP) Pulse Ox O2 Delivery O2 Flow Rate FiO2 10/28/17 02:44 98.6 93 16 180/102 (128) 99 Orders Orders Complete Blood Count With Diff (10/28/17 02:41) Comprehensive Metabolic Panel (10/28/17 02:41) Lipase (10/28/17 02:41) Iv Access Insert/Monitor (10/28/17 02:41) Abdomen, Kub Only (10/28/17 ) Ct Abd/Pel W/O Iv Contrast (10/28/17 ) Urinalysis - C+S If Indicated (10/28/17 04:20) Sodium Chlor 0.9% 1000 Ml Inj (Ns 1000 M (10/28/17 04:30) Ed Discharge Order (10/28/17 05:29) Labs Laboratory Tests Test 10/28/17 02:45 10/28/17 05:00 White Blood Count 9.7 TH/MM3 Red Blood Count 4.22 MIL/MM3 Hemoglobin 12.2 GM/DL Hematocrit 37.4 % Mean Corpuscular Volume 88.7 FL Mean Corpuscular Hemoglobin 29.0 PG Mean Corpuscular Hemoglobin Concent 32.7 % Red Cell Distribution Width 16.4 % Platelet Count 321 TH/MM3 Mean Platelet Volume 6.8 FL Neutrophils (%) (Auto) 61.5 % Lymphocytes (%) (Auto) 23.7 % Monocytes (%) (Auto) 12.3 % Eosinophils (%) (Auto) 1.7 % Basophils (%) (Auto) 0.8 % Neutrophils # (Auto) 6.0 TH/MM3 Lymphocytes # (Auto) 2.3 TH/MM3 Monocytes # (Auto) 1.2 TH/MM3 Eosinophils # (Auto) 0.2 TH/MM3 Basophils # (Auto) 0.1 TH/MM3 CBC Comment DIFF FINAL Differential Comment Blood Urea Nitrogen 21 MG/DL Creatinine 1.73 MG/DL Random Glucose 107 MG/DL Total Protein 7.2 GM/DL Albumin 3.2 GM/DL Calcium Level 8.9 MG/DL Alkaline Phosphatase 150 U/L Aspartate Amino Transf (AST/SGOT) 34 U/L Alanine Aminotransferase (ALT/SGPT) 25 U/L Total Bilirubin 0.1 MG/DL Sodium Level 141 MEQ/L Potassium Level 3.9 MEQ/L Chloride Level 106 MEQ/L Carbon Dioxide Level 29.9 MEQ/L Anion Gap 5 MEQ/L Estimat Glomerular Filtration Rate 40 ML/MIN Lipase 191 U/L Urine Color LIGHT-YELLOW Urine Turbidity CLEAR Urine pH 7.0 Urine Specific [place] 1.009 Urine Protein TRACE mg/dL Urine Glucose (UA) NEG mg/dL Urine Ketones NEG mg/dL Urine Occult Blood NEG Urine Nitrite NEG Urine Bilirubin NEG Urine Urobilinogen LESS THAN 2.0 MG/DL Urine Leukocyte Esterase NEG Urine WBC LESS THAN 1 /hpf Urine Mucus FEW /lpf Microscopic Urinalysis Comment CATH-CULT NOT IND MDM Medical Decision Making Medical Screen Exam Complete: Yes Emergency Medical Condition: Yes Medical Record Reviewed: Yes (past history confirmed) Interpretation(s) CBC & BMP Diagram 10/28/17 02:45 Total Protein 7.2, Albumin 3.2 L, Calcium Level 8.9, Alkaline Phosphatase 150 H , Aspartate Amino Transf (AST/SGOT) 34, Alanine Aminotransferase (ALT/SGPT) 25, Total Bilirubin 0.1 L Last 24 hours Impressions Abdomen X-Ray 10/28/17 0000 Signed Impressions: Service Date/Time: Saturday, October 28, 2017 02:50 - CONCLUSION: No acute finding is identified. Lexx Segovia MD Differential Diagnosis Obstruction, ileus, pancreatitis, gastritis Narrative Course Will check blood work, x-ray and reevaluate X-ray nondiagnostic will proceed with CT Labs show renal insufficiencies, CT is nondiagnostic, will add on urinalysis UA no signs of infection, given IV fluids, no emesis here, patient can follow- up outpatient for repeat creatinine and will be given Zofran. Diagnosis Primary Impression: Abdominal pain Qualified Codes: R10.9 - Unspecified abdominal pain Additional Impressions: Vomiting Qualified Codes: R11.10 - Vomiting, unspecified Renal insufficiency Patient Instructions: General Instructions Additional Instructions: return as needed, follow with primary monday, tylenol as needed, keep hydrated Med/Other Pt SpecificInfo: No Change to Meds Disposition: 03 DISCHARGE TO SNF Condition: Stable Rika Jordan MD Oct 28, 2017 04:19
[2017-10-28] MEDS ORDERED: SODIUM CHLOR 0.9% 1000 ML INJ 1,000 ML IV ONE (04:30)
[2017-10-28 05:19] LABS: BLOOD, URINE NEG (NEG); COMMENT (UR) CATH-CULT NOT IND; CULTURE IF INDICATED CATH CULTURE NOT IND; GLUCOSE,URINE NEG (NEG); KETONE, URINE NEG (NEG); MUCUS URINE FEW /lpf (OCC); NITRITE,URINE NEG (NEG); URINE COLOR LIGHT-YELLOW (YELLW/STRAW)
[2017-10-28 08:00] VITALS: BP 167/98; PULSE 94; RESP 16; O2SAT 97
== END 2017-10-28 09:33 ==
LOC: NEPC 02:24
DX: R10.9 Unspecified abdominal pain (principal); R11.10 Vomiting, unspecified; N28.9 Disorder of kidney and ureter, unspecified; F03.90 Unspecified dementia, unspecified severity, without behavioral disturbance, psychotic disturbance, mood disturbance, and anxiety; Z87.19 Personal history of other diseases of the digestive system; Z87.39 Personal history of other diseases of the musculoskeletal system and connective tissue; Z86.69 Personal history of other diseases of the nervous system and sense organs
CPT/HCPCS: 74000; 74176; 80053; 81001; 83690; 85025; 96360; 96361; 99285; J7030

== ENCOUNTER 2018-03-23 18:20 | Observation (INO) | payer MEDICARE, OTHER ==
[~2018-03-23] VITALS: Ht 177.8 cm; Wt 80.0 kg
[2018-03-23 18:38] VITALS: BP 190/106; PULSE 82; RESP 19; TEMP 98.4; O2SAT 99
[2018-03-23] MEDS ORDERED: MIRA3350 PO (19:00)
[2018-03-23] MEDS ORDERED: TYLE325T PO (19:00)
[2018-03-23] MEDS ORDERED: ALMASUS2 PO (19:00)
[2018-03-23] MEDS ORDERED: ARIC10TA9 PO (19:00)
[2018-03-23] MEDS ORDERED: COLA100C5 PO (19:00)
[2018-03-23] MEDS ORDERED: IBUP1TAB5 PO (19:00)
[2018-03-23] MEDS ORDERED: GUAI237L PO (19:00)
[2018-03-23] MEDS ORDERED: MAGNSOL2 PO (19:00)
[2018-03-23] MEDS ORDERED: MULTTAB62 PO (19:00)
[2018-03-23 19:10] VITALS: BP 191/99; PULSE 92; RESP 15; TEMP 97.9; O2SAT 98
--- NOTE | 2018-03-23 19:16 | PD ---
HPI Chief Complaint: GI Complaint Time Seen by Provider: 19:08 Travel History International Travel<30 days: No Contact w/Intl Traveler<30days: No Traveled to known affect area: No History of Present Illness HPI pt has been vomiting all day he says , now there is bright red blood in his vomitus as well here in the ER , He also has epigastric pain which coninues in ER , He seems slow in his comprehension of my questions I get different responses to whether he has liver disease or portal htn history , pt is awake alert but some what disoriented, etoh? vs delirium vs dementia poor historian HPI and ROS limited due to mental status . On review of his past charts --> I see pt has Hx of gastric cancer with stomach resection and prior GI bleed . IN ER HE HAS VOMITUS IN BASIN WITH BRIGHT RED BLOOD IN IT, PFSH Past Medical History Asthma: No Blood Disorders: No Anxiety: No Depression: No Heart Rhythm Problems: No Cancer: No Cardiovascular Problems: No High Cholesterol: No Chemotherapy: No Chest Pain: No Congestive Heart Failure: No COPD: No Dementia: Yes Diabetes: No Endocrine: No Gastrointestinal Disorders: Yes (hx of gastric surgery) Genitourinary: No Immune Disorder: No Musculoskeletal: Yes (,RIGHT HIP REPLACEMENT IN FEBRUARY) Neurologic: Yes (weak in legs) Psychiatric: Yes (dementia) Reproductive: No Respiratory: No Radiation Therapy: No Sleep Apnea: No Thyroid Disease: No Past Surgical History Abdominal Surgery: Yes Pacemaker: No Other Surgery: Yes (gastric surgery) Social History Alcohol Use: No Tobacco Use: No Substance Use: No Allergies-Medications (Allergen,Severity, Reaction): Coded Allergies: Sulfa (Sulfonamide Antibiotics) (Unverified Allergy, Unknown, 10/14/17) penicillin G (Unverified Allergy, Unknown, 10/14/17) prochlorperazine (Unverified Allergy, Unknown, 10/14/17) Reported Meds & Prescriptions Reported Meds & Active Scripts Active Bisac-Evac Supp (Bisacodyl) 10 Mg Supp 10 Mg RECTAL DAILY PRN Abilify (Aripiprazole) 2 Mg Tab 2 Mg PO DAILY@0600 Namenda (Memantine) 10 Mg Tab 10 Mg PO BID Venlafaxine ER 24 HR (Venlafaxine HCl) 150 Mg Cap 150 Mg PO HS Reported Tylenol (Acetaminophen) 325 Mg Tab 650 Mg PO Q4H PRN Aricept (Donepezil HCl) 10 Mg Tablet 10 Mg PO HS Miralax Powder (Polyethylene Glycol 3350 Powder) 17 Gm Powd 17 Gm PO DAILY Mix and dissolve one measuring capful (17 grams) in 4oz of water or juice. Colace (Docusate Sodium) 100 Mg Capsule 100 Mg PO BID Magnesium Citrate Liq (Magnesium Citrate) 300 Ml Liq 300 Ml PO Q12HR PRN Robitussin Cough-Chest Dm Liq (Guaifenesin/Dextromethorphan) 100 Mg-5 Mg/5 Ml Liquid 10 Ml PO Q6HR PRN Almacone Liq (Mhrxvvds-Jyzdbpuev-Ybhdulipdmz Liq) 200-200-20 Mg/5 Ml Susp 15 Ml PO Q4HR PRN Take between meals or as directed. Shake well. Do not exceed 120 mL/24 hrs. Multi-Vitamin/Minerals (Multiple Vitamins W/ Minerals) 1 Tab Tab 1 Tab PO DAILY Senna-Tabs (Sennosides) 8.6 Mg Tab 8.6 Mg PO BID Vitamin D3 (Cholecalciferol) 1,000 Unit Cap 1,000 Units PO DAILY Review of Systems Except as stated in HPI: all other systems reviewed are Neg Gastrointestinal: Positive: Vomiting, Abdominal Pain, Hematemesis Physical Exam Narrative GENERAL: seems slightly confused and poor historian SKIN: Warm and dry. HEAD: Atraumatic. Normocephalic. EYES: Pupils equal and round. No scleral icterus. No injection or drainage. ENT: No nasal bleeding or discharge. Mucous membranes pink and moist. NECK: Trachea midline. No JVD. CARDIOVASCULAR: Regular rate and rhythm. RESPIRATORY: No accessory muscle use. Clear to auscultation. Breath sounds equal bilaterally. GASTROINTESTINAL: Abdomen epigastric tenderness nondistended. Hepatic and splenic margins not palpable. Bright red blood in the vomitus in his basin bedside MUSCULOSKELETAL: Extremities without clubbing, cyanosis, or edema. No obvious deformities. NEUROLOGICAL: Awake and alert. No obvious cranial nerve deficits. Motor grossly within normal limits. Five out of 5 muscle strength in the arms and legs. Normal speech. PSYCHIATRIC: intellect seems slow .. possible CP or dementia or prior TBI behavior , unclear as to why his mentation is slow almost MR in nature Data Data Last Documented VS Orders Orders Complete Blood Count With Diff (03/23/18 19:11) Comprehensive Metabolic Panel (03/23/18 19:11) Prothrombin Time / Inr (Pt) (03/23/18 19:11) Amylase (03/23/18 19:11) Lipase (03/23/18 19:11) Chest, Single Ap (03/23/18 19:11) Type And Screen (03/23/18 19:11) Pantoprazole Inj (Protonix Inj) (03/23/18 19:30) Pantoprazole Inj (Protonix Inj) (03/23/18 19:30) Octreotide Inj (Sandostatin Inj) (03/23/18 19:30) Sodium Chlor 0.9% 1000 Ml Inj (Ns 1000 M (03/23/18 19:30) Ondansetron Inj (Zofran Inj) (03/23/18 20:30) Admit Order (Ed Use Only) (03/23/18 21:18) Consult Gastroenterology (03/23/18 ) Place In Observation (03/23/18 ) Vital Signs (Adult) Q4H (03/23/18 21:14) Activity Oob With Assistance (03/23/18 21:14) Logging Superintendent / Telemetry .CONTINUOUS (03/23/18 21:14) Intake + Output STEF.QSHIFT (03/23/18 21:14) Sodium Chlor 0.9% 1000 Ml Inj (Ns 1000 M (03/23/18 21:14) Sodium Chloride 0.9% Flush (Ns Flush) (03/23/18 21:15) Sodium Chloride 0.9% Flush (Ns Flush) (03/24/18 09:00) Ondansetron Inj (Zofran Inj) (03/23/18 21:15) Comprehensive Metabolic Panel (03/24/18 06:00) Complete Blood Count With Diff (03/24/18 06:00) Pt Request For Service (03/23/18 21:14) Case Management Consult (03/23/18 21:14) Pharmacologic Contraindication (03/23/18 21:14) Acetaminophen (Tylenol) (03/23/18 21:15) Acetamin-Hydrocod 325-5 Mg (Headrick 5-325 (03/23/18 21:15) Morphine Inj (Morphine Inj) (03/23/18 21:15) Docusate Sodium-Senna (Yasmeen-Colace) (03/24/18 09:00) Magnesium Hydroxide Liq (Milk Of Magnesi (03/23/18 21:15) Sennosides (Senokot) (03/23/18 21:15) Bisacodyl Supp (Dulcolax Supp) (03/23/18 21:15) Lactulose Liq (Lactulose Liq) (03/23/18 21:15) Aripiprazole (Abilify) (03/24/18 06:00) Memantine (Namenda) (03/24/18 09:00) Venlafaxine Xr (Effexor Xr) (03/24/18 21:00) Donepezil (Aricept) (03/24/18 21:00) Labs Laboratory Tests Test 03/23/18 19:10 White Blood Count 6.3 TH/MM3 Red Blood Count 4.98 MIL/MM3 Hemoglobin 12.6 GM/DL Hematocrit 39.3 % Mean Corpuscular Volume 79.0 FL Mean Corpuscular Hemoglobin 25.4 PG Mean Corpuscular Hemoglobin Concent 32.1 % Red Cell Distribution Width 18.2 % Platelet Count 408 TH/MM3 Mean Platelet Volume 7.5 FL Neutrophils (%) (Auto) 60.6 % Lymphocytes (%) (Auto) 22.9 % Monocytes (%) (Auto) 12.0 % Eosinophils (%) (Auto) 3.3 % Basophils (%) (Auto) 1.2 % Neutrophils # (Auto) 3.8 TH/MM3 Lymphocytes # (Auto) 1.4 TH/MM3 Monocytes # (Auto) 0.8 TH/MM3 Eosinophils # (Auto) 0.2 TH/MM3 Basophils # (Auto) 0.1 TH/MM3 CBC Comment DIFF FINAL Differential Comment Prothrombin Time 9.8 SEC Prothromb Time International Ratio 1.0 RATIO Blood Urea Nitrogen 22 MG/DL Creatinine 1.92 MG/DL Random Glucose 101 MG/DL Total Protein 9.0 GM/DL Albumin 4.2 GM/DL Calcium Level 9.7 MG/DL Alkaline Phosphatase 192 U/L Aspartate Amino Transf (AST/SGOT) 33 U/L Alanine Aminotransferase (ALT/SGPT) 26 U/L Total Bilirubin 0.2 MG/DL Sodium Level 137 MEQ/L Potassium Level 4.5 MEQ/L Chloride Level 100 MEQ/L Carbon Dioxide Level 28.4 MEQ/L Anion Gap 9 MEQ/L Estimat Glomerular Filtration Rate 35 ML/MIN Amylase Level 139 U/L Lipase 205 U/L [facility] Medical Decision Making Medical Screen Exam Complete: Yes Emergency Medical Condition: Yes Differential Diagnosis hematemsis of variceal bleed vs gastritis ulcer in antrum vs duodenal ulcer bleed other Narrative Course pt is given protonix IVP and Drip and octreotide push , pt has gastric cancer hx and resection and history of bleed and pt is given 2 liters NS and admitted for GI intervention Daniel Hand H stable and safe for M/S admit Diagnosis Primary Impression: Hematemesis Qualified Codes: K92.0 - Hematemesis Admitting Information Admitting Physician Requests: Admit Scripts Pantoprazole (Pantoprazole) 40 Mg Tab 40 MG PO DAILY for esophagitis, #30 TAB Prov: Blanca Hill PA-C 03/27/18 Amlodipine (Norvasc) 5 Mg Tab 5 MG PO DAILY for Blood Pressure Management, #30 TAB Prov: Blanca Hill PA-C 03/27/18 Ferrous Sulfate (Ferosul) 325 Mg (65 Mg Iron) Tablet 325 MG PO BID for Build Red Blood Cells for 30 Days, #60 TAB Prov: Blanca Hill PA-C 03/27/18 Freeman Marion MD Mar 23, 2018 19:16
[2018-03-23] MEDS ORDERED: OCTREOTIDE INJ 50 MCG/ML AMP IV PUSH SCH (19:30)
[2018-03-23] MEDS ORDERED: SODIUM CHLOR 0.9% 1000 ML INJ 1,000 ML IV ONE (19:30)
[2018-03-23] MEDS ORDERED: PANTOPRAZOLE SODIUM 40 MG VIAL IV PUSH ONE (19:30)
[2018-03-23] MEDS: PANTOPRAZOLE INJ 80 MG in SODIUM CHLORIDE 0.9% INJ 100 ML IV SCH (19:31)
--- NOTE | 2018-03-23 19:33 | RADRPT ---
EXAM DATE/TIME: 03/23/2018 19:16 [place] COMPARISON: CT PULMONARY ANGIOGRAM, October 14, 2017, 9:42. CHEST SINGLE AP, October 14, 2017, 9:18. INDICATIONS : Pt is vomiting with blood present. Pt gives limited responses. Pt pointed to his throat and abdomen w hen asked where he has pain. Pt unable to state how long he has been vomitting. MEDICAL HISTORY : Carcinoma, esophageal. SURGICAL HISTORY : Partial Gastrectomy ENCOUNTER: Initial ACUITY: 1 day PAIN SCORE: Non-responsive. LOCATION: Bilateral upper quadrant Throat FINDINGS: A single view of the chest demonstrates the lungs to be symmetrically aerated without evidence of mas s, infiltrate or effusion. The cardiomediastinal contours are unremarkable. Osseous structures are intact. Changes of esophagectomy and gastric pull up again noted. CONCLUSION: No acute abnormality demonstrated. Lexx Bolanos MD on March 23, 2018 at 19:29 Board Certified Radiologist. This report was verified electronically.
[2018-03-23 19:50] LABS: AUTOMATED NEUTROPHIL # 3.8 TH/MM3 (1.8-7.7); BASOPHIL # 0.1 TH/MM3 (0-0.2); BASOPHIL % 1.2 % (0.0-2.0); EOSINOPHIL # 0.2 TH/MM3 (0-0.4); EOSINOPHIL % 3.3 % (0.0-4.0); HEMATOCRIT 39.3 % (39.0-51.0); HEMOGLOBIN 12.6 GM/DL (13.0-17.0); LYMPH % 22.9 % (9.0-44.0); LYMPHOCYTE # 1.4 TH/MM3 (1.0-4.8); MEAN CORPUSCULAR HEMOGLOBIN 25.4 PG (27.0-34.0); MEAN CORPUSCULAR HGB CONC 32.1 % (32.0-36.0); MEAN PLATELET VOLUME 7.5 FL (7.0-11.0); MONOCYTE # 0.8 TH/MM3 (0-0.9); NEUT % 60.6 % (16.0-70.0); PLATELET COUNT 408 TH/MM3 (150-450); RED BLOOD COUNT 4.98 MIL/MM3 (4.50-5.90); RED CELL DISTRIBUTION WIDTH 18.2 % (11.6-17.2); WHITE BLOOD COUNT 6.3 TH/MM3 (4.0-11.0)
[2018-03-23 20:01] LABS: PROTHROMBIN TIME - PATIENT 9.8 SEC (9.8-11.6)
[2018-03-23 20:11] LABS: ALBUMIN 4.2 GM/DL (3.4-5.0); AST (GOT) 33 U/L (15-37); BICARBONATE 28.4 MEQ/L (21.0-32.0); BLOOD UREA NITROGEN 22 MG/DL (7-18); CALCIUM 9.7 MG/DL (8.5-10.1); CREATININE 1.92 MG/DL (0.60-1.30); GLOMERULAR FILTRATION RATE 35 ML/MIN (>89); GLUCOSE,RANDOM 101 MG/DL (74-106)
[2018-03-23 20:13] LABS: ALT (GPT) 26 U/L (12-78)
[2018-03-23] MEDS ORDERED: ONDANSETRON HCL 4 MG/2 ML VIAL IV PUSH ONE (20:30)
[2018-03-23 20:37] LABS: ALKALINE PHOSPHATASE 192 U/L (45-117); CHLORIDE 100 MEQ/L (98-107); SODIUM (NA) 137 MEQ/L (136-145); TOTAL BILIRUBIN ADULT 0.2 MG/DL (0.2-1.0)
[2018-03-23 20:42] VITALS: BP 157/92; PULSE 84; RESP 14; O2SAT 97
[2018-03-23] MEDS ORDERED: MORPHINE SULFATE 2 MG/ML SYRINGE IV PUSH PRN (21:15)
[2018-03-23] MEDS ORDERED: SODIUM CHLORIDE 0.9% FLUSH 10 ML FLUSH IV FLUSH PRN (21:15)
[2018-03-23] MEDS ORDERED: SENNOSIDES 8.6 MG TAB PO PRN (21:15)
[2018-03-23] MEDS ORDERED: LACTULOSE SYRUP 20 GM/30 ML CUP PO PRN (21:15)
[2018-03-23] MEDS ORDERED: ACETAMINOPHEN/HYDROcodone 325 MG/5 MG TAB PO PRN (21:15)
[2018-03-23] MEDS ORDERED: BISACODYL 10 MG SUPP RECTAL PRN (21:15)
[2018-03-23] MEDS ORDERED: ONDANSETRON HCL 4 MG/2 ML VIAL IVP PRN (21:15)
[2018-03-23] MEDS ORDERED: MAGNESIUM HYDROXIDE SUSP 30 ML CUP PO PRN (21:15)
--- NOTE | 2018-03-23 21:19 | HHI.HP ---
HPI Service [facility] Primary Care Physician Prashant Perez MD Admission Diagnosis Hematemesis Diagnoses: (1) GI bleed Diagnosis: Principal (2) GRICEDLA (acute kidney injury) Diagnosis: Principal (3) Dementia Diagnosis: Principal Travel History International Travel<30 Days: No Contact w/Intl Traveler <30 Da: No Traveled to Known Affected Are: No History of Present Illness This is a 68-year-old male with a PMH of HTN, h/o Esophageal/Gastric CA s/p Gastrectomy and Dementia who was sent to the ER from [facility] for hematemesis. Pt unable to provide any history due to severe dementia. Per report, pt vomited bright red emesis earlier this afternoon. Pt without complaints of abdominal pain. On arrival, BP 190/106, HR 82, O2 sat 99% RA, Afebrile. Hemoglobin 12.6, previously 12.2 on 10/28/17. Creatinine 1.92, previously 1.73 on 10/28/17. INR 1.0. CXR with no acute findings. Started on Protonix gtt in ER. Review of Systems Except as stated in HPI: all other systems reviewed are Neg ROS: 14 point review of systems otherwise negative. Past Family Social History Past Medical History PMH: HTN, h/o Esophageal/Gastric CA s/p Gastrectomy and Dementia Past Surgical History PAST SURGICAL HISTORY: Gastrectomy Allergies: Coded Allergies: Sulfa (Sulfonamide Antibiotics) (Unverified Allergy, Unknown, 10/14/17) penicillin G (Unverified Allergy, Unknown, 10/14/17) prochlorperazine (Unverified Allergy, Unknown, 10/14/17) Family History PAST FAMILY HISTORY: Reviewed. No h/o DM or CAD Social History PAST SOCIAL HISTORY: Negative for alcohol, tobacco or drugs. Physical Exam Vital Signs Vital Signs Date Time Temp Pulse Resp B/P (MAP) Pulse Ox O2 Delivery O2 Flow Rate FiO2 03/23/18 20:42 84 14 157/92 (113) 97 Room Air 03/23/18 19:10 97.9 92 15 191/99 (129) 98 Room Air 03/23/18 18:38 98.4 82 19 190/106 (134) 99 Physical Exam PE: GENERAL: Pleasantly demented middle-aged white male in no acute distress. HEENT: PERRLA, EOMI. No scleral icterus or conjunctival pallor. No lid lag or facial droop. CARDIOVASCULAR: Regular rate and rhythm. No obvious murmurs to auscultation. No chest tenderness to palpation. RESPIRATORY: No obvious rhonchi or wheezing. Clear to auscultation. Breath sounds equal bilaterally. GASTROINTESTINAL: Abdomen soft, non-tender, nondistended. BS normal. MUSCULOSKELETAL: Extremities without clubbing, cyanosis, or edema. No obvious deformities. NEUROLOGICAL: Awake, alert and oriented to person, place, confused. No focal neurologic deficits. Moving both upper and lower extremities spontaneously. Laboratory Laboratory Tests Test 03/23/18 19:10 White Blood Count 6.3 Red Blood Count 4.98 Hemoglobin 12.6 Hematocrit 39.3 Mean Corpuscular Volume 79.0 Mean Corpuscular Hemoglobin 25.4 Mean Corpuscular Hemoglobin Concent 32.1 Red Cell Distribution Width 18.2 Platelet Count 408 Mean Platelet Volume 7.5 Neutrophils (%) (Auto) 60.6 Lymphocytes (%) (Auto) 22.9 Monocytes (%) (Auto) 12.0 Eosinophils (%) (Auto) 3.3 Basophils (%) (Auto) 1.2 Neutrophils # (Auto) 3.8 Lymphocytes # (Auto) 1.4 Monocytes # (Auto) 0.8 Eosinophils # (Auto) 0.2 Basophils # (Auto) 0.1 CBC Comment DIFF FINAL Differential Comment Prothrombin Time 9.8 Prothromb Time International Ratio 1.0 Blood Urea Nitrogen 22 Creatinine 1.92 Random Glucose 101 Total Protein 9.0 Albumin 4.2 Calcium Level 9.7 Alkaline Phosphatase 192 Aspartate Amino Transf (AST/SGOT) 33 Alanine Aminotransferase (ALT/SGPT) 26 Total Bilirubin 0.2 Sodium Level 137 Potassium Level 4.5 Chloride Level 100 Carbon Dioxide Level 28.4 Anion Gap 9 Estimat Glomerular Filtration Rate 35 Amylase Level 139 Lipase 205 Result Diagram: 03/23/18190903/23/181909 Caprini VTE Risk Assessment Caprini VTE Risk Assessment: No/Low Risk (score <= 1) Caprini Risk Assessment Model Point Value = 1 Point Value = 2 Point Value = 3 Point Value = 5 Age 41-60 Minor surgery BMI > 25 kg/m2 Swollen legs Varicose veins or History of unexplained or recurrent spontaneous Oral contraceptives or hormone replacement Sepsis (< 1 month) Serious lung disease, including pneumonia (< 1 month) Abnormal pulmonary function Acute myocardial infarction Congestive heart failure (< 1 month) History of inflammatory bowel disease Medical patient at bed rest Age 61-74 Arthroscopic surgery Major open surgery (> 45 min) Laparoscopic surgery (> 45 min) Malignancy Confined to bed (> 72 hours) Immobilizing plaster cast Central venous access Age >= 75 History of VTE Family history of VTE Factor V Leiden Prothrombin [id number] Lupus anticoagulant Anticardiolipin antibodies Elevated serum homocysteine Heparin-induced thrombocytopenia Other congenital or acquired thrombophilia Stroke (< 1 month) Elective arthroplasty Hip, pelvis, or leg fracture Acute spinal cord injury (< 1 month) Prophylaxis Regimen Total Risk Factor Score Risk Level Prophylaxis Regimen 0-1 Low Early ambulation 2 Moderate Order ONE of the following: *Sequential Compression Device (SCD) *Heparin 5000 units SQ BID 3-4 Higher Order ONE of the following medications: *Heparin 5000 units SQ TID *Enoxaparin/Lovenox 40 mg SQ daily (WT < 150 kg, CrCl > 30 mL/min) *Enoxaparin/Lovenox 30 mg SQ daily (WT < 150 kg, CrCl > 10-29 mL/min) *Enoxaparin/Lovenox 30 mg SQ BID (WT < 150 kg, CrCl > 30 mL/min) AND/OR *Sequential Compression Device (SCD) 5 or more Highest Order ONE of the following medications: *Heparin 5000 units SQ TID (Preferred with Epidurals) *Enoxaparin/Lovenox 40 mg SQ daily (WT < 150 kg, CrCl > 30 mL/min) *Enoxaparin/Lovenox 30 mg SQ daily (WT < 150 kg, CrCl > 10-29 mL/min) *Enoxaparin/Lovenox 30 mg SQ BID (WT < 150 kg, CrCl > 30 mL/min) AND *Sequential Compression Device (SCD) Assessment and Plan Problem List: (1) GI bleed ICD Code: K92.2 - Gastrointestinal hemorrhage, unspecified (2) GRICELDA (acute kidney injury) ICD Code: N17.9 - Acute kidney failure, unspecified (3) Dementia ICD Code: F03.90 - Unspecified dementia without behavioral disturbance Status: Chronic Assessment and Plan A/P: 1. GI Bleed: report of hematemesis from SNF, h/o Esophageal/Gastric CA s/p Gastrectomy per records, Hgb 12.6, previously 12.2. Hold ASA. Check Hgb in am. Consult GI for further eval/intervention. Transfuse as needed for Hgb <7 or if hemodynamically stable. Continue Protonix gtt 2. GRICELDA: Creatinine 1.92, previously 1.73 on 10/28/2017. Check UA, IVF for hydration, repeat labs in a.m. 3. Dementia: Severe. At baseline. Resume home Aricept, Namenda, Abilify 4. DVT Prophylaxis: Pharmacologic contraindication secondary to GI Bleed 5. Social work for DC planning as needed. 6. Case discussed at length with the ER physician, lab/record/imaging reviewed by me. Latha Lara MD Mar 23, 2018 21:19
[2018-03-23 22:26] VITALS: BP 152/74; PULSE 76; RESP 18; TEMP 98.7; O2SAT 97
[2018-03-23] MEDS: SODIUM CHLOR 0.9% 1000 ML INJ 1,000 ML IV SCH (22:44)
[2018-03-24] VITALS (10 sets, daily range): BP systolic 118–195; BP diastolic 58–91; PULSE 60–80; RESP 16–18; TEMP 97.8–98.7; O2SAT 93–98
[2018-03-24] MEDS ORDERED: PROMETHAZINE INJ 25 MG/ML VIAL IM ONE (01:45)
[2018-03-24 04:54] LABS: BILIRUBIN, URINE NEG (NEG); BLOOD, URINE NEG (NEG); GLUCOSE,URINE NEG (NEG); KETONE, URINE NEG (NEG); MUCUS URINE FEW /lpf (OCC); NITRITE,URINE NEG (NEG); PH, URINE 5.5 (5.0-8.5); URINE COLOR LIGHT-YELLOW (YELLW/STRAW); URINE LEUKOCYTE ESTERASE NEG (NEG)
[2018-03-24] MEDS: ARIPiprazole 2 MG TAB PO SCH (06:16)
[2018-03-24] MEDS: PANTOPRAZOLE INJ 80 MG in SODIUM CHLORIDE 0.9% INJ 100 ML IV SCH ×2 (06:16→21:07)
[2018-03-24 08:38] LABS: AUTOMATED NEUTROPHIL # 4.5 TH/MM3 (1.8-7.7); BASOPHIL # 0.1 TH/MM3 (0-0.2); BASOPHIL % 1.4 % (0.0-2.0); EOSINOPHIL # 0.2 TH/MM3 (0-0.4); EOSINOPHIL % 2.1 % (0.0-4.0); HEMATOCRIT 34.1 % (39.0-51.0); HEMOGLOBIN 10.7 GM/DL (13.0-17.0); LYMPH % 23.8 % (9.0-44.0); LYMPHOCYTE # 1.9 TH/MM3 (1.0-4.8); MEAN CELL VOLUME 80.2 FL (80.0-100.0); MEAN CORPUSCULAR HEMOGLOBIN 25.2 PG (27.0-34.0); MEAN CORPUSCULAR HGB CONC 31.5 % (32.0-36.0); MEAN PLATELET VOLUME 7.3 FL (7.0-11.0); MONO % 15.5 % (0.0-8.0); MONOCYTE # 1.2 TH/MM3 (0-0.9); NEUT % 57.2 % (16.0-70.0); PLATELET COUNT 336 TH/MM3 (150-450); RED BLOOD COUNT 4.25 MIL/MM3 (4.50-5.90); RED CELL DISTRIBUTION WIDTH 17.5 % (11.6-17.2); WHITE BLOOD COUNT 7.8 TH/MM3 (4.0-11.0)
[2018-03-24] MEDS: SODIUM CHLOR 0.9% 1000 ML INJ 1,000 ML IV SCH ×2 (08:48→22:22)
[2018-03-24] MEDS: SODIUM CHLORIDE 0.9% FLUSH 10 ML FLUSH IV FLUSH SCH ×2 (08:48→21:00)
[2018-03-24] MEDS: MEMANTINE HCL 10 MG TAB PO SCH ×2 (08:48→21:09)
[2018-03-24] MEDS: DOCUSATE SODIUM 50 MG/SENNA 8.6 MG TAB PO SCH ×2 (08:49→21:07)
[2018-03-24 08:54] LABS: ALKALINE PHOSPHATASE 155 U/L (45-117); ALT (GPT) 20 U/L (12-78); AST (GOT) 32 U/L (15-37); BICARBONATE 22.8 MEQ/L (21.0-32.0); BLOOD UREA NITROGEN 17 MG/DL (7-18); CALCIUM 8.9 MG/DL (8.5-10.1); CHLORIDE 109 MEQ/L (98-107); GLOMERULAR FILTRATION RATE 43 ML/MIN (>89); GLUCOSE,RANDOM 87 MG/DL (74-106); SODIUM (NA) 142 MEQ/L (136-145); TOTAL BILIRUBIN ADULT 0.3 MG/DL (0.2-1.0)
[2018-03-24] MEDS ORDERED: PROPOFOL 200 MG/20 ML AMP IV ONE (12:00)
[2018-03-24] MEDS ORDERED: LIDOCAINE HCL 1% PF 5 ML SYRINGE OTHER ONE (12:00)
[2018-03-24] MEDS ORDERED: SUCCINYLCHOLINE CHLORIDE 100 MG/5 ML SYRINGE IV PUSH ONE (12:00)
--- NOTE | 2018-03-24 13:54 | HHI.PR ---
Subjective Remarks Follow up on patient with GIB. Patient seen and examined. Patient is pleasantly confused. Discussed with patients nurse Kasia, 2 episodes of hematemesis last night. None today. He has not had any bowel movements. Patient reports shortness of breath but is satting 97% on room air. He denies any nausea or vomiting. He reports some abdominal pain. Objective Vitals Vital Signs Date Time Temp Pulse Resp B/P (MAP) Pulse Ox O2 Delivery O2 Flow Rate FiO2 03/24/18 12:44 71 145/70 (95) 03/24/18 11:55 98.7 60 18 123/64 (83) 97 03/24/18 08:05 97.8 63 18 118/61 (80) 98 03/24/18 07:15 60 03/24/18 04:46 18 158/68 (98) 03/24/18 04:21 98.6 80 18 195/91 (125) 98 03/24/18 03:06 74 03/23/18 22:26 98.7 76 18 152/74 (100) 97 03/23/18 21:52 03/23/18 20:42 84 14 157/92 (113) 97 Room Air 03/23/18 19:10 97.9 92 15 191/99 (129) 98 Room Air 03/23/18 18:38 98.4 82 19 190/106 (134) 99 I/O 03/23/18 03/23/18 03/23/18 03/24/18 03/24/18 03/24/18 07:00 15:00 23:00 07:00 15:00 23:00 Intake Total 1000 ml Balance 1000 ml Intake IV Total 1000 ml Result Diagram: 03/24/18 0640 03/24/18 0640 Imaging Last Impressions Chest X-Ray 03/23/181910 Signed Impressions: Service Date/Time: Friday, March 23, 2018 19:16 - CONCLUSION: No acute abnormality demonstrated. Lexx Bolanos MD Objective Remarks GENERAL: WDWN pleasantly demented middle-aged white male patient, in no acute distress. Asleep but easily awakens to voice. Appears comfortable. Pleasantly confused. HEENT: PERRLA, EOMI. No scleral icterus or conjunctival pallor. No lid lag or facial droop. No nasal drainage or purulence. MMM. CARDIOVASCULAR: Regular rate and rhythm. No obvious murmurs to auscultation. No chest tenderness to palpation. RESPIRATORY: Nonlabored. No obvious rhonchi or wheezing. Clear to auscultation. Breath sounds equal bilaterally. GASTROINTESTINAL: Abdomen soft, non-tender, nondistended. BS normal. MUSCULOSKELETAL: Extremities without clubbing, cyanosis, or edema. No obvious deformities. NEUROLOGICAL: Awake, alert and oriented to self only, confused. Moving both upper and lower extremities spontaneously. No focal neurologic deficits. PSYCHIATRIC: Calm and pleasant. Cooperative with exam. Medications and IVs Current Medications Medications (Trade) Dose Ordered Sig/Ludin Route Start Time Stop Time Status Last Admin Pantoprazole Sodium 80 mg/ Sodium Chloride 100 ml @ 10 mls/hr CONTINUOUS IV 03/23/18 19:30 03/24/18 06:16 (SandoSTATIN INJ) 50 mcg ONCE IV PUSH 03/23/18 19:30 03/23/18 19:53 Sodium Chloride 1,000 ml @ 100 mls/hr Q10H IV 03/23/18 21:14 03/24/18 08:48 (NS Flush) 2 ml UNSCH PRN IV FLUSH 03/23/18 21:15 (NS Flush) 2 ml BID IV FLUSH 03/24/18 09:00 (Zofran Inj) 4 mg Q6H PRN IVP 03/23/18 21:15 (Tylenol) 650 mg Q6H PRN PO 03/23/18 21:15 (Green 5-325 Mg) 1 tab Q4H PRN PO 03/23/18 21:15 (Morphine Inj) 2 mg Q3H PRN IV PUSH 03/23/18 21:15 03/24/18 04:29 (Yasmeen-Colace) 1 tab BID PO 03/24/18 09:00 03/24/18 08:49 (Milk Of Magnesia Liq) 30 ml Q12H PRN PO 03/23/18 21:15 (Senokot) 17.2 mg Q12H PRN PO 03/23/18 21:15 (Dulcolax Supp) 10 mg DAILY PRN RECTAL 03/23/18 21:15 (Lactulose Liq) 30 ml DAILY PRN PO 03/23/18 21:15 (Abilify) 2 mg DAILY@0600 PO 03/24/18 06:00 03/24/18 06:16 (Namenda) 10 mg BID PO 03/24/18 09:00 03/24/18 08:48 (Effexor Xr) 150 mg HS PO 03/24/18 21:00 (Aricept) 10 mg HS PO 03/24/18 21:00 A/P Problem List: (1) GI bleed ICD Code: K92.2 - Gastrointestinal hemorrhage, unspecified (2) GRICELDA (acute kidney injury) ICD Code: N17.9 - Acute kidney failure, unspecified (3) Dementia ICD Code: F03.90 - Unspecified dementia without behavioral disturbance Status: Chronic Assessment and Plan GI Bleed: report of hematemesis from SNF and 2 episodes of hematemesis overnight Patient given Octreotide 50mcg x 1 in ED h/o Esophageal/Gastric CA s/p Gastrectomy per records -GI following, patient NPO, plan for panendoscopy later today. -continue on Protonix gtt -IVF Anemia, secondary to GIB -hgb dropped from 12.6 to 10.7 overnight -obtain stat H/H now. Continue to follow H/H closely. -Transfuse as needed for Hgb <7 or if hemodynamically stable. -continue to monitor on cardiac telemetry GRICELDA on CKD: Creatinine 1.92, previously 1.73 on 10/28/2017, suspect secondary to dehydration, BUN 22, improving on IVF UA unremarkable -Continue on IVF for hydration -avoid nephrotoxic agents -continue to monitor kidney function as indicated. Repeat BMP in am. Dementia: Severe. At baseline. -continue on home Aricept, Namenda, Abilify DVT Prophylaxis: Pharmacologic contraindication secondary to GI Bleed -bilateral SCD/MANJULA hose Discharge Planning Patient not ready for discharge. Having endoscopy today. Hgb dropping. Discharge pending clinical improvement and GI clearance Antoinette Casper Mar 24, 2018 13:54
--- NOTE | 2018-03-24 14:35 | PD.CONS ---
HPI History of Present Illness This is a 68 year old who was admitted on 03/23/2018 with hematemesis earlier in the afternoon day of admission. Patient also notes dysphasia for the past few weeks and has not been able to eat or drink anything. Patient notes some nausea and vomiting, no obvious chills or fever. Patient denies any type of abdominal pain and no obvious rectal bleeding. Patient has a substantial history of esophageal and gastric cancer and he is status post gastrectomy. Current hemoglobin was 12.6 on admission and now 10.7. Patient was started on Protonix drip in the emergency room setting and is currently n.p.o. GI was consulted for possible GI bleed. Limited information secondary to patient's dementia but did whisper his complaint of dysphasia. (Eugenie Dela Cruz) PFSH Past Medical History PMH: HTN, h/o Esophageal/Gastric CA s/p Gastrectomy and Dementia Past Surgical History PAST SURGICAL HISTORY: Gastrectomy (Eugenie Dela Cruz) Coded Allergies: Sulfa (Sulfonamide Antibiotics) (Unverified Allergy, Unknown, 10/14/17) penicillin G (Unverified Allergy, Unknown, 10/14/17) prochlorperazine (Unverified Allergy, Unknown, 10/14/17) Medications Administered Medications Medications (Trade) Dose Ordered Sig/Ludin Route PRN Reason Start Time Stop Time Status Last Admin Dose Admin Pantoprazole Sodium 80 mg/ Sodium Chloride 100 ml @ 10 mls/hr CONTINUOUS IV 03/23/18 19:30 03/24/18 06:16 Octreotide Acetate (SandoSTATIN INJ) 50 mcg ONCE IV PUSH 03/23/18 19:30 03/23/18 19:53 Sodium Chloride 1,000 ml @ 100 mls/hr Q10H IV 03/23/18 21:14 03/24/18 08:48 Morphine Sulfate (Morphine Inj) 2 mg Q3H PRN IV PUSH Pain 6-10 03/23/18 21:15 03/24/18 04:29 Senna/Docusate Sodium (Yasmeen-Colace) 1 tab BID PO 03/24/18 09:00 03/24/18 08:49 Aripiprazole (Abilify) 2 mg DAILY@0600 PO 03/24/18 06:00 03/24/18 06:16 Memantine (Namenda) 10 mg BID PO 03/24/18 09:00 03/24/18 08:48 Family History PAST FAMILY HISTORY: Reviewed. No h/o DM or CAD Social History PAST SOCIAL HISTORY: Negative for alcohol, tobacco or drugs. (Eugeine Dela Cruz) Review of Systems Gastrointestinal: COMPLAINS OF: Nausea, Vomiting, Difficulty Swallowing, Hematemesis (Eugenie Dela Cruz) GI Exam Vitals I&O Vital Signs Date Time Temp Pulse Resp B/P (MAP) Pulse Ox O2 Delivery O2 Flow Rate FiO2 03/24/18 12:44 71 145/70 (95) 03/24/18 11:55 98.7 60 18 123/64 (83) 97 03/24/18 08:05 97.8 63 18 118/61 (80) 98 03/24/18 07:15 60 03/24/18 04:46 18 158/68 (98) 03/24/18 04:21 98.6 80 18 195/91 (125) 98 03/24/18 03:06 74 03/23/18 22:26 98.7 76 18 152/74 (100) 97 03/23/18 21:52 03/23/18 20:42 84 14 157/92 (113) 97 Room Air 03/23/18 19:10 97.9 92 15 191/99 (129) 98 Room Air 03/23/18 18:38 98.4 82 19 190/106 (134) 99 I/O 03/23/18 03/23/18 03/23/18 03/24/18 03/24/18 03/24/18 07:00 15:00 23:00 07:00 15:00 23:00 Intake Total 1000 ml Balance 1000 ml Intake IV Total 1000 ml Imaging Last Impressions Chest X-Ray 03/23/181 Signed Impressions: Service Date/Time: Friday, March 23, 2018 19:16 - CONCLUSION: No acute abnormality demonstrated. Lexx Bolanos MD Laboratory Test 03/23/18 19:10 03/24/18 04:30 03/24/18 06:40 White Blood Count 6.3 TH/MM3 7.8 TH/MM3 Red Blood Count 4.98 MIL/MM3 4.25 MIL/MM3 Hemoglobin 12.6 GM/DL 10.7 GM/DL Hematocrit 39.3 % 34.1 % Mean Corpuscular Volume 79.0 FL 80.2 FL Mean Corpuscular Hemoglobin 25.4 PG 25.2 PG Mean Corpuscular Hemoglobin Concent 32.1 % 31.5 % Red Cell Distribution Width 18.2 % 17.5 % Platelet Count 408 TH/MM3 336 TH/MM3 Mean Platelet Volume 7.5 FL 7.3 FL Neutrophils (%) (Auto) 60.6 % 57.2 % Lymphocytes (%) (Auto) 22.9 % 23.8 % Monocytes (%) (Auto) 12.0 % 15.5 % Eosinophils (%) (Auto) 3.3 % 2.1 % Basophils (%) (Auto) 1.2 % 1.4 % Neutrophils # (Auto) 3.8 TH/MM3 4.5 TH/MM3 Lymphocytes # (Auto) 1.4 TH/MM3 1.9 TH/MM3 Monocytes # (Auto) 0.8 TH/MM3 1.2 TH/MM3 Eosinophils # (Auto) 0.2 TH/MM3 0.2 TH/MM3 Basophils # (Auto) 0.1 TH/MM3 0.1 TH/MM3 CBC Comment DIFF FINAL DIFF FINAL Differential Comment Prothrombin Time 9.8 SEC Prothromb Time International Ratio 1.0 RATIO Blood Urea Nitrogen 22 MG/DL 17 MG/DL Creatinine 1.92 MG/DL 1.60 MG/DL Random Glucose 101 MG/DL 87 MG/DL Total Protein 9.0 GM/DL 7.0 GM/DL Albumin 4.2 GM/DL 3.0 GM/DL Calcium Level 9.7 MG/DL 8.9 MG/DL Alkaline Phosphatase 192 U/L 155 U/L Aspartate Amino Transf (AST/SGOT) 33 U/L 32 U/L Alanine Aminotransferase (ALT/SGPT) 26 U/L 20 U/L Total Bilirubin 0.2 MG/DL 0.3 MG/DL Sodium Level 137 MEQ/L 142 MEQ/L Potassium Level 4.5 MEQ/L 4.7 MEQ/L Chloride Level 100 MEQ/L 109 MEQ/L Carbon Dioxide Level 28.4 MEQ/L 22.8 MEQ/L Anion Gap 9 MEQ/L 10 MEQ/L Estimat Glomerular Filtration Rate 35 ML/MIN 43 ML/MIN Amylase Level 139 U/L Lipase 205 U/L Urine Color LIGHT-YELLOW Urine Turbidity CLEAR Urine pH 5.5 Urine Specific [place] 1.009 Urine Protein TRACE mg/dL Urine Glucose (UA) NEG mg/dL Urine Ketones NEG mg/dL Urine Occult Blood NEG Urine Nitrite NEG Urine Bilirubin NEG Urine Urobilinogen LESS THAN 2.0 MG/DL Urine Leukocyte Esterase NEG Urine WBC LESS THAN 1 /hpf Urine Mucus FEW /lpf Microscopic Urinalysis Comment CULT NOT INDICATED Physical Examination HEENT: normocephalic; atraumatic; no jaundice. Pale facial color NECK: Neck supple, slim CHEST: No audible rhonchi but some mild diminished breath sounds especially in the bases CARDIAC: S1-S2 ABDOMEN: Flat, soft , nondistended, nontender; no palpable hepatosplenomegaly; bowel sounds are present in all four quadrants. EXTREMITIES: No lower extremity edema. 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 Currently patient has not been able to drink or eat for the past few weeks and does complain of nausea and vomiting and hematemesis. started on Protonix drip current hemoglobin was 12.6 on admission now 10.7. Alkaline phosphatase was 192 now 155. No family present. No complaints of abdominal pain no rectal bleeding to his knowledge. Plan N.p.o. EGD today with Dr. Lizarraga. Monitor labs with special attention to hemoglobin Continue Protonix drip Supportive care Further recommendations will be based on findings Patient was seen per myself and Dr. Lizarraga, this note was written on his behalf (Eugenie Dela Cruz) Plan Patient was seen and examined, agree with above note, history of esophageal cancer that was supposedly treated completely in 2011 with remission, patient came with some vomiting and hematemesis, we will plan on doing upper endoscopy today to rule out active bleeding and evaluate the reason for any bleed, I had a discussion with his sister who is the power of admitted attorneys and she agreed for him to have the procedure and a verbal consent over the phone was called and signed, meanwhile will monitor his hemoglobin to ensure that it is stable and give him packed RBC if needed (Lore Lizarraga MD) Eugenie Dela Cruz Mar 24, 2018 14:35 Lore Lizarraga MD Mar 24, 2018 15:14
--- NOTE | 2018-03-24 15:58 | PD.PROCEDR ---
GI Procedure PROCEDURE PERFORMED EGD with biopsy, bleeding control INDICATION FOR PROCEDURE Hematemesis, history of esophageal cancer in the past PROCEDURE: The procedure, risks and benefits were discussed with Mr. Wall and informed was obtained from his sister who is the power of senior attorney consent was obtained. Anesthesia sedated him with intubation to protect his airway. He was placed in the left lateral decubitus position. EGD: The Pentax videoscope was introduced through the oropharynx and advanced to the second portion of the duodenum under direct visualization. Retroflexion was performed in the stomach. ESTIMATED BLOOD LOSS: none SPECIMENS REMOVED: distal esophagus COMPLICATIONS: none IMPRESSION: anatomy consistent with resection of the EG junction most likely sever grade D esophagitis clot at an ulcer site in the esophagus injected with 3 cc of epinephrine, and cauterized with gold probe Stomach was full of food, unable to see the whole mucosa Duodenum normal PLAN: Clear liquid No NSAIDs Protonix 40 mg daily Follow-up biopsy Patient would need an endoscopy in 4-5 weeks with at least 2 days of clear liquid to evaluate the stomach and the healing of the esophagitis Lore Lizarraga MD Mar 24, 2018 15:58
[2018-03-24] MEDS ORDERED: EPINEPHrine HCL (1:10,000) 1 MG/10 ML SYRINGE SQ ONE (17:43)
[2018-03-24 20:48] LABS: HEMOGLOBIN 10.2 GM/DL (13.0-17.0)
[2018-03-24] MEDS: DONEPEZIL HCL 5 MG TAB PO SCH (21:07)
[2018-03-24] MEDS: VENLAFAXINE HCL XR 75 MG CAP PO SCH (21:07)
[2018-03-25] VITALS (7 sets, daily range): BP systolic 118–182; BP diastolic 61–89; PULSE 62–78; RESP 16–22; TEMP 98.2–99.1; O2SAT 95–100
[2018-03-25] MEDS: ARIPiprazole 2 MG TAB PO SCH (05:23)
[2018-03-25 08:09] LABS: BICARBONATE 23.7 MEQ/L (21.0-32.0); CALCIUM 8.4 MG/DL (8.5-10.1); CREATININE 1.47 MG/DL (0.60-1.30)
[2018-03-25] MEDS: SODIUM CHLOR 0.9% 1000 ML INJ 1,000 ML IV SCH (08:50)
[2018-03-25] MEDS: PANTOPRAZOLE INJ 80 MG in SODIUM CHLORIDE 0.9% INJ 100 ML IV SCH (08:50)
[2018-03-25] MEDS: SODIUM CHLORIDE 0.9% FLUSH 10 ML FLUSH IV FLUSH SCH ×2 (09:00→20:17)
[2018-03-25] MEDS: MEMANTINE HCL 10 MG TAB PO SCH ×2 (10:33→20:18)
[2018-03-25] MEDS: DOCUSATE SODIUM 50 MG/SENNA 8.6 MG TAB PO SCH ×2 (10:33→20:18)
[2018-03-25] MEDS: ACETAMINOPHEN 325 MG TAB PO PRN ×2 (10:34→20:21)
--- NOTE | 2018-03-25 11:57 | HHI.PR ---
Subjective Remarks Follow up on patient with GIB. Patient seen and examined. Patient remains pleasantly confused. He answers yes to all of my review of system questions. Discussed with nursing staff, no acute issues noted overnight. No recurrence of hematemesis. Patient has been tolerating clear diet well. No fever chills. Urinating well. No diarrhea. Reportedly, GI wants patient to remain on clear liquid diet for 2 days before progressing and then close follow-up to see how patient tolerates. Objective Vitals Vital Signs Date Time Temp Pulse Resp B/P (MAP) Pulse Ox O2 Delivery O2 Flow Rate FiO2 03/25/18 08:26 98.7 75 16 138/75 (96) 95 03/25/18 04:09 98.5 78 16 118/68 (85) 96 03/25/18 00:32 98.5 63 17 129/61 (83) 95 03/24/18 23:00 67 03/24/18 20:24 98.6 61 16 119/60 (79) 96 Manual Cuff/Auscultation 03/24/18 16:39 98.0 70 18 121/58 (79) 93 03/24/18 16:00 98.5 78 14 130/69 (89) 95 Room Air 03/24/18 15:45 84 14 141/72 (95) 100 Nasal Cannula 2 03/24/18 15:39 98.5 88 14 144/69 (94) 99 Nasal Cannula 2 03/24/18 12:44 71 145/70 (95) 03/24/18 11:55 98.7 60 18 123/64 (83) 97 I/O 03/24/18 03/24/18 03/24/18 03/25/18 03/25/18 03/25/18 07:00 15:00 23:00 07:00 15:00 23:00 Intake Total 200 ml 1100 ml Balance 200 ml 1100 ml Intake IV Total 1100 ml Other 200 ml Result Diagram: 03/24/18194003/25/18 0600 Imaging Last Impressions Chest X-Ray 03/23/181910 Signed Impressions: Service Date/Time: Friday, March 23, 2018 19:16 - CONCLUSION: No acute abnormality demonstrated. Lexx Bolanos MD Objective Remarks GENERAL: WDWN pleasantly demented middle-aged white male patient, in no acute distress. Awake and alert, sitting up in bed. Pleasantly confused. Kasia RN at the bedside. HEENT: PERRLA, EOMI. No scleral icterus or conjunctival pallor. No lid lag or facial droop. No nasal drainage or purulence. MMM. CARDIOVASCULAR: Regular rate and rhythm. No obvious murmurs to auscultation. No chest tenderness to palpation. RESPIRATORY: Nonlabored. No obvious rhonchi or wheezing. Clear to auscultation. Breath sounds equal bilaterally. GASTROINTESTINAL: Abdomen soft, non-tender, nondistended. BS normal. MUSCULOSKELETAL: Extremities without clubbing, cyanosis, or edema. No obvious deformities. NEUROLOGICAL: Awake, alert and oriented to self only, confused. Moving both upper and lower extremities spontaneously. No focal neurologic deficits. PSYCHIATRIC: Calm and pleasant. Cooperative with exam. Procedures GI Procedure PROCEDURE PERFORMED EGD with biopsy, bleeding control INDICATION FOR PROCEDURE Hematemesis, history of esophageal cancer in the past PROCEDURE: The procedure, risks and benefits were discussed with Mr. Wall and informed was obtained from his sister who is the power of real estate associate attorney consent was obtained. Anesthesia sedated him with intubation to protect his airway. He was placed in the left lateral decubitus position. EGD: The Pentax videoscope was introduced through the oropharynx and advanced to the second portion of the duodenum under direct visualization. Retroflexion was performed in the stomach. ESTIMATED BLOOD LOSS: none SPECIMENS REMOVED: distal esophagus COMPLICATIONS: none IMPRESSION: anatomy consistent with resection of the EG junction most likely sever grade D esophagitis clot at an ulcer site in the esophagus injected with 3 cc of epinephrine, and cauterized with gold probe Stomach was full of food, unable to see the whole mucosa Duodenum normal PLAN: Clear liquid No NSAIDs Protonix 40 mg daily Follow-up biopsy Patient would need an endoscopy in 4-5 weeks with at least 2 days of clear liquid to evaluate the stomach and the healing of the esophagitis Medications and IVs Current Medications Medications (Trade) Dose Ordered Sig/Ludin Route Start Time Stop Time Status Last Admin Pantoprazole Sodium 80 mg/ Sodium Chloride 100 ml @ 10 mls/hr CONTINUOUS IV 03/23/18 19:30 03/25/18 08:50 (SandoSTATIN INJ) 50 mcg ONCE IV PUSH 03/23/18 19:30 03/23/18 19:53 Sodium Chloride 1,000 ml @ 100 mls/hr Q10H IV 03/23/18 21:14 03/25/18 08:50 (NS Flush) 2 ml UNSCH PRN IV FLUSH 03/23/18 21:15 (NS Flush) 2 ml BID IV FLUSH 03/24/18 09:00 (Zofran Inj) 4 mg Q6H PRN IVP 03/23/18 21:15 03/24/18 18:34 (Tylenol) 650 mg Q6H PRN PO 03/23/18 21:15 03/25/18 10:34 ([place] 5-325 Mg) 1 tab Q4H PRN PO 03/23/18 21:15 (Morphine Inj) 2 mg Q3H PRN IV PUSH 03/23/18 21:15 03/24/18 04:29 (Yasmeen-Colace) 1 tab BID PO 03/24/18 09:00 03/25/18 10:33 (Milk Of Magnesia Liq) 30 ml Q12H PRN PO 03/23/18 21:15 (Senokot) 17.2 mg Q12H PRN PO 03/23/18 21:15 (Dulcolax Supp) 10 mg DAILY PRN RECTAL 03/23/18 21:15 (Lactulose Liq) 30 ml DAILY PRN PO 03/23/18 21:15 (Abilify) 2 mg DAILY@0600 PO 03/24/18 06:00 03/25/18 05:23 (Namenda) 10 mg BID PO 03/24/18 09:00 03/25/18 10:33 (Effexor Xr) 150 mg HS PO 03/24/18 21:00 03/24/18 21:07 (Aricept) 10 mg HS PO 03/24/18 21:00 03/24/18 21:07 A/P Problem List: (1) GI bleed ICD Code: K92.2 - Gastrointestinal hemorrhage, unspecified (2) GRICELDA (acute kidney injury) ICD Code: N17.9 - Acute kidney failure, unspecified (3) Dementia ICD Code: F03.90 - Unspecified dementia without behavioral disturbance Status: Chronic Assessment and Plan GI Bleed: report of hematemesis from SNF and 2 episodes of hematemesis overnight following admission Patient given Octreotide 50mcg x 1 in ED h/o Esophageal/Gastric CA s/p Gastrectomy per records s/p EGD by Dr. Lizarraga 03/24 revealing severe grade D esophagitis, clot at the ulcer site in the esophagus and stomach full of food. Recommendations for clear liquid diet 2 days, Protonix 40 mg daily and no NSAIDs -GI -Discontinue Protonix drip. Change to Protonix 40 mg p.o. daily -Avoid NSAIDs -Continue clear liquid diet 2 days per GI, plan to advance tomorrow and monitor to see how patient tolerates Anemia, secondary to GIB hgb dropped from 12.6 to 10.7 overnight. H/H stable at 10.2. -Continue to follow H&H, repeat CBC in a.m. -Transfuse as needed for Hgb <7 or if hemodynamically stable. -continue to monitor on cardiac telemetry GRICELDA on CKD: Creatinine 1.92, previously 1.73 on 10/28/2017, suspect secondary to dehydration, BUN 22, much improved status post IVF UA unremarkable -avoid nephrotoxic agents -continue to monitor kidney function as indicated. Dementia: Severe. At baseline. -continue on home Aricept, Namenda, Abilify DVT Prophylaxis: Pharmacologic contraindication secondary to GI Bleed -bilateral SCD/MANJULA hose Discharge Planning Patient not ready for discharge. Per GI, patient to continue on clear liquid diet 2 days with close monitoring to see how patient tolerates advance diet. Discharge pending GI clearance. Antoinette Casper Mar 25, 2018 11:57
--- NOTE | 2018-03-25 12:02 | HHI.GIFU ---
Subjective Remarks Pt resting in bed. Per RN he is quite happy with clear liquids. No further bleeding. Objective Vitals I&O Vital Signs Date Time Temp Pulse Resp B/P (MAP) Pulse Ox O2 Delivery O2 Flow Rate FiO2 03/25/18 11:47 98.5 68 18 137/81 (99) 98 03/25/18 08:26 98.7 75 16 138/75 (96) 95 03/25/18 04:09 98.5 78 16 118/68 (85) 96 03/25/18 00:32 98.5 63 17 129/61 (83) 95 03/24/18 23:00 67 03/24/18 20:24 98.6 61 16 119/60 (79) 96 Manual Cuff/Auscultation 03/24/18 16:39 98.0 70 18 121/58 (79) 93 03/24/18 16:00 98.5 78 14 130/69 (89) 95 Room Air 03/24/18 15:45 84 14 141/72 (95) 100 Nasal Cannula 2 03/24/18 15:39 98.5 88 14 144/69 (94) 99 Nasal Cannula 2 03/24/18 12:44 71 145/70 (95) I/O 03/24/18 03/24/18 03/24/18 03/25/18 03/25/18 03/25/18 07:00 15:00 23:00 07:00 15:00 23:00 Intake Total 200 ml 1100 ml Balance 200 ml 1100 ml Intake IV Total 1100 ml Other 200 ml Laboratory Laboratory Tests Test 03/24/18 19:41 03/25/18 06:00 Hemoglobin 10.2 Hematocrit 33.0 Blood Urea Nitrogen 16 Creatinine 1.47 Random Glucose 86 Calcium Level 8.4 Sodium Level 141 Potassium Level 4.3 Chloride Level 110 Carbon Dioxide Level 23.7 Anion Gap 7 Estimat Glomerular Filtration Rate 48 Imaging Last Impressions Chest X-Ray 03/23/181910 Signed Impressions: Service Date/Time: Friday, March 23, 2018 19:16 - CONCLUSION: No acute abnormality demonstrated. Lexx Bolanos MD Physical Exam HEENT: normocephalic; atraumatic; no jaundice. CHEST: CTA CARDIAC: RRR ABDOMEN: Soft, nondistended, epigastric TTP; no hepatosplenomegaly; bowel sounds are present in all four quadrants. EXTREMITIES: No clubbing, cyanosis, or edema. SKIN: Normal; no rash; no jaundice. 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 Currently patient has not been able to drink or eat for the past few weeks and does complain of nausea and vomiting and hematemesis. started on Protonix drip current hemoglobin was 12.6 on admission now 10.7. Alkaline phosphatase was 192 now 155. No family present. No complaints of abdominal pain no rectal bleeding to his knowledge. 03/25/18 s/p EGD found grade D esophagitis, clot at ulcer site s/p epi inj, cautery, stomach full of blood. no HH today tolerating clears, no further bleeding. indicates that he does have abd pain PLAN - stay on clears 2 days - EGD after 2 days - monitor HH - 40mg protonix daily - rck HH in am Pt seen by myself and Dr Loza and this note is on his behalf Mena Cheatham Mar 25, 2018 12:02
[2018-03-25] MEDS: VENLAFAXINE HCL XR 75 MG CAP PO SCH (20:18)
[2018-03-25] MEDS: DONEPEZIL HCL 5 MG TAB PO SCH (20:18)
[2018-03-25 20:34] LABS: AUTOMATED NEUTROPHIL # 2.7 TH/MM3 (1.8-7.7); BASOPHIL # 0.1 TH/MM3 (0-0.2); BASOPHIL % 1.1 % (0.0-2.0); EOSINOPHIL # 0.3 TH/MM3 (0-0.4); EOSINOPHIL % 5.3 % (0.0-4.0); HEMATOCRIT 33.5 % (39.0-51.0); HEMOGLOBIN 10.5 GM/DL (13.0-17.0); LYMPH % 30.6 % (9.0-44.0); LYMPHOCYTE # 1.8 TH/MM3 (1.0-4.8); MEAN CELL VOLUME 79.6 FL (80.0-100.0); MEAN CORPUSCULAR HEMOGLOBIN 25.1 PG (27.0-34.0); MEAN CORPUSCULAR HGB CONC 31.5 % (32.0-36.0); MEAN PLATELET VOLUME 7.4 FL (7.0-11.0); MONO % 15.2 % (0.0-8.0); MONOCYTE # 0.9 TH/MM3 (0-0.9); NEUT % 47.8 % (16.0-70.0); PLATELET COUNT 350 TH/MM3 (150-450); RED BLOOD COUNT 4.21 MIL/MM3 (4.50-5.90); RED CELL DISTRIBUTION WIDTH 17.9 % (11.6-17.2); WHITE BLOOD COUNT 5.7 TH/MM3 (4.0-11.0)
[2018-03-26] VITALS (13 sets, daily range): BP systolic 91–180; BP diastolic 53–94; PULSE 64–89; RESP 15–24; TEMP 98–98.4; O2SAT 95–99
[2018-03-26 04:31] LABS: AUTOMATED NEUTROPHIL # 3.2 TH/MM3 (1.8-7.7); BASOPHIL # 0.2 TH/MM3 (0-0.2); BASOPHIL % 2.6 % (0.0-2.0); EOSINOPHIL # 0.4 TH/MM3 (0-0.4); EOSINOPHIL % 6.2 % (0.0-4.0); HEMATOCRIT 31.5 % (39.0-51.0); LYMPHOCYTE # 1.5 TH/MM3 (1.0-4.8); MEAN CELL VOLUME 79.8 FL (80.0-100.0); MEAN CORPUSCULAR HEMOGLOBIN 25.4 PG (27.0-34.0); MEAN CORPUSCULAR HGB CONC 31.8 % (32.0-36.0); MONO % 14.9 % (0.0-8.0); MONOCYTE # 0.9 TH/MM3 (0-0.9); NEUT % 51.3 % (16.0-70.0); PLATELET COUNT 338 TH/MM3 (150-450); RED BLOOD COUNT 3.94 MIL/MM3 (4.50-5.90); RED CELL DISTRIBUTION WIDTH 17.8 % (11.6-17.2); WHITE BLOOD COUNT 6.2 TH/MM3 (4.0-11.0)
[2018-03-26] MEDS: ARIPiprazole 2 MG TAB PO SCH (05:27)
[2018-03-26] MEDS: DOCUSATE SODIUM 50 MG/SENNA 8.6 MG TAB PO SCH ×2 (09:00→21:00)
--- NOTE | 2018-03-26 09:28 | HHI.GIFU ---
Subjective Remarks Pt resting in bed, napping. Wants to go home. Denies abd pain. (Mena Cheatham) Objective Vitals I&O Vital Signs Date Time Temp Pulse Resp B/P (MAP) Pulse Ox O2 Delivery O2 Flow Rate FiO2 03/26/18 07:24 98.1 72 16 155/84 (107) 97 03/26/18 03:59 64 03/26/18 00:54 89 03/26/18 00:53 98.2 74 15 172/92 (118) 96 03/26/18 00:00 73 03/25/18 21:30 16 03/25/18 20:06 99.1 74 22 182/89 (120) 96 03/25/18 15:15 98.2 68 18 149/81 (103) 100 03/25/18 11:47 98.5 68 18 137/81 (99) 98 I/O 03/25/18 03/25/18 03/25/18 03/26/18 03/26/18 03/26/18 07:00 15:00 23:00 07:00 15:00 23:00 Intake Total 1485 ml Balance 1485 ml Intake IV Total 1485 ml # Voids 1 1 # Bowel Movements 1 1 Laboratory Laboratory Tests Test 03/25/18 19:55 03/26/18 04:09 White Blood Count 5.7 6.2 Red Blood Count 4.21 3.94 Hemoglobin 10.5 10.0 Hematocrit 33.5 31.5 Mean Corpuscular Volume 79.6 79.8 Mean Corpuscular Hemoglobin 25.1 25.4 Mean Corpuscular Hemoglobin Concent 31.5 31.8 Red Cell Distribution Width 17.9 17.8 Platelet Count 350 338 Mean Platelet Volume 7.4 7.0 Neutrophils (%) (Auto) 47.8 51.3 Lymphocytes (%) (Auto) 30.6 25.0 Monocytes (%) (Auto) 15.2 14.9 Eosinophils (%) (Auto) 5.3 6.2 Basophils (%) (Auto) 1.1 2.6 Neutrophils # (Auto) 2.7 3.2 Lymphocytes # (Auto) 1.8 1.5 Monocytes # (Auto) 0.9 0.9 Eosinophils # (Auto) 0.3 0.4 Basophils # (Auto) 0.1 0.2 CBC Comment DIFF FINAL DIFF FINAL Differential Comment Imaging Last Impressions Chest X-Ray 03/23/18 191 Signed Impressions: Service Date/Time: Friday, March 23, 2018 19:16 - CONCLUSION: No acute abnormality demonstrated. Lexx Bolanos MD Physical Exam HEENT: normocephalic; atraumatic; no jaundice. CHEST: CTA CARDIAC: RRR ABDOMEN: Soft, nondistended, epigastric TTP; no hepatosplenomegaly; bowel sounds are present in all four quadrants. EXTREMITIES: No clubbing, cyanosis, or edema. SKIN: Normal; no rash; no jaundice. 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 Currently patient has not been able to drink or eat for the past few weeks and does complain of nausea and vomiting and hematemesis. started on Protonix drip current hemoglobin was 12.6 on admission now 10.7. Alkaline phosphatase was 192 now 155. No family present. No complaints of abdominal pain no rectal bleeding to his knowledge. 03/25/18 s/p EGD found grade D esophagitis, clot at ulcer site s/p epi inj, cautery, stomach full of blood. no HH today tolerating clears, no further bleeding. indicates that he does have abd pain 03/26/18 HH trending down. no obvious bleeding. tolerating clears. d/w RN PLAN - EGD today - NPO - obtain consent - monitor HH - 40mg protonix daily Pt seen by myself and Dr Lizarraga and this note is on his behalf (Mena Cheatham) Plan Agree with above note, plan on doing endoscopy today to ensure that there is no abnormality in the stomach and that there is no active bleeding in the esophagus , if this is normal patient can be discharged home (Lore Lizarraga MD) Mena Cheatham Mar 26, 2018 09:28 Lore Lizarraga MD Mar 26, 2018 15:47
[2018-03-26] MEDS: MEMANTINE HCL 10 MG TAB PO SCH ×2 (10:05→22:05)
[2018-03-26] MEDS: PANTOPRAZOLE SOD 40 MG DELAYED RELEASE TAB PO SCH (10:05)
[2018-03-26] MEDS: SODIUM CHLORIDE 0.9% FLUSH 10 ML FLUSH IV FLUSH SCH ×2 (10:05→22:05)
[2018-03-26] MEDS ORDERED: amLODIPine BESYLATE 5 MG TAB PO ONE (11:00)
--- NOTE | 2018-03-26 11:31 | HHI.PR ---
Subjective Remarks Follow up on patient with GIB. Patient seen and examined. Patient reports tightness and swelling in bilateral calves. He is any fever or chills. Denies any chest pain or shortness of breath. Denies any nausea, vomiting or abdominal pain. Tolerating his clear liquid diet. Discussed with nursing staff , patient had 2 nonbloody BMs today. Objective Vitals Vital Signs Date Time Temp Pulse Resp B/P (MAP) Pulse Ox O2 Delivery O2 Flow Rate FiO2 03/26/18 11:09 98.0 82 16 167/94 (118) 99 03/26/18 07:24 98.1 72 16 155/84 (107) 97 03/26/18 03:59 64 03/26/18 00:54 89 03/26/18 00:53 98.2 74 15 172/92 (118) 96 03/26/18 00:00 73 03/25/18 21:30 16 03/25/18 20:06 99.1 74 22 182/89 (120) 96 03/25/18 15:15 98.2 68 18 149/81 (103) 100 03/25/18 11:47 98.5 68 18 137/81 (99) 98 I/O 03/25/18 03/25/18 03/25/18 03/26/18 03/26/18 03/26/18 07:00 15:00 23:00 07:00 15:00 23:00 Intake Total 1485 ml Balance 1485 ml Intake IV Total 1485 ml # Voids 1 1 # Bowel Movements 1 1 Result Diagram: 03/26/18 0409 03/25/18 0600 Imaging Last Impressions Chest X-Ray 03/23/18 1911 Signed Impressions: Service Date/Time: Friday, March 23, 2018 19:16 - CONCLUSION: No acute abnormality demonstrated. Lexx Bolanos MD Objective Remarks GENERAL: WDWN pleasantly demented middle-aged white male patient, in no acute distress. Awake and alert, lying in bed. Pleasantly confused. HEENT: PERRLA, EOMI. No scleral icterus or conjunctival pallor. No lid lag or facial droop. No nasal drainage or purulence. MMM. CARDIOVASCULAR: Regular rate and rhythm. No obvious murmurs to auscultation. No chest tenderness to palpation. RESPIRATORY: Nonlabored. No obvious rhonchi or wheezing. Clear to auscultation. Breath sounds equal bilaterally. GASTROINTESTINAL: Abdomen soft, non-tender, nondistended. BS normal. MUSCULOSKELETAL: Extremities without clubbing or cyanosis. Right leg noticeably larger than left. Patient complains of tenderness to palpation bilateral calves. Both calves slightly firm R>L. NEUROLOGICAL: Awake, alert and oriented to self only, confused. Moving both upper and lower extremities spontaneously. No focal neurologic deficits. PSYCHIATRIC: Calm and pleasant. Cooperative with exam. Procedures GI Procedure PROCEDURE PERFORMED EGD with biopsy, bleeding control INDICATION FOR PROCEDURE Hematemesis, history of esophageal cancer in the past PROCEDURE: The procedure, risks and benefits were discussed with Mr. Wall and informed was obtained from his sister who is the power of compliance attorney consent was obtained. Anesthesia sedated him with intubation to protect his airway. He was placed in the left lateral decubitus position. EGD: The Pentax videoscope was introduced through the oropharynx and advanced to the second portion of the duodenum under direct visualization. Retroflexion was performed in the stomach. ESTIMATED BLOOD LOSS: none SPECIMENS REMOVED: distal esophagus COMPLICATIONS: none IMPRESSION: anatomy consistent with resection of the EG junction most likely sever grade D esophagitis clot at an ulcer site in the esophagus injected with 3 cc of epinephrine, and cauterized with gold probe Stomach was full of food, unable to see the whole mucosa Duodenum normal PLAN: Clear liquid No NSAIDs Protonix 40 mg daily Follow-up biopsy Patient would need an endoscopy in 4-5 weeks with at least 2 days of clear liquid to evaluate the stomach and the healing of the esophagitis Medications and IVs Current Medications Medications (Trade) Dose Ordered Sig/Ludin Route Start Time Stop Time Status Last Admin (SandoSTATIN INJ) 50 mcg ONCE IV PUSH 03/23/18 19:30 03/23/18 19:53 (NS Flush) 2 ml UNSCH PRN IV FLUSH 03/23/18 21:15 (NS Flush) 2 ml BID IV FLUSH 03/24/18 09:00 03/26/18 10:05 (Zofran Inj) 4 mg Q6H PRN IVP 03/23/18 21:15 03/24/18 18:34 (Tylenol) 650 mg Q6H PRN PO 03/23/18 21:15 03/25/18 20:21 ([place] 5-325 Mg) 1 tab Q4H PRN PO 03/23/18 21:15 (Morphine Inj) 2 mg Q3H PRN IV PUSH 03/23/18 21:15 03/24/18 04:29 (Yasmeen-Colace) 1 tab BID PO 03/24/18 09:00 03/25/18 20:18 (Milk Of Magnesia Liq) 30 ml Q12H PRN PO 03/23/18 21:15 (Senokot) 17.2 mg Q12H PRN PO 03/23/18 21:15 (Dulcolax Supp) 10 mg DAILY PRN RECTAL 03/23/18 21:15 (Lactulose Liq) 30 ml DAILY PRN PO 03/23/18 21:15 (Abilify) 2 mg DAILY@0600 PO 03/24/18 06:00 03/26/18 05:27 (Namenda) 10 mg BID PO 03/24/18 09:00 03/26/18 10:05 (Effexor Xr) 150 mg HS PO 03/24/18 21:00 03/25/18 20:18 (Aricept) 10 mg HS PO 03/24/18 21:00 03/25/18 20:18 (Protonix) 40 mg DAILY PO 03/26/18 09:00 03/26/18 10:05 (Norvasc) 5 mg DAILY PO 03/27/18 09:00 A/P Problem List: (1) GI bleed ICD Code: K92.2 - Gastrointestinal hemorrhage, unspecified (2) GRICELDA (acute kidney injury) ICD Code: N17.9 - Acute kidney failure, unspecified (3) Dementia ICD Code: F03.90 - Unspecified dementia without behavioral disturbance Status: Chronic Assessment and Plan GI Bleed: report of hematemesis from SNF and 2 episodes of hematemesis overnight following admission Patient given Octreotide 50mcg x 1 in ED h/o Esophageal/Gastric CA s/p Gastrectomy per records GI following: s/p EGD by Dr. Lizarraga 03/24 revealing severe grade D esophagitis , clot at the ulcer site in the esophagus and stomach full of food. Recommendations for clear liquid diet 2 days, Protonix 40 mg daily and no NSAIDs -continue on Protonix 40 mg p.o. daily -Avoid NSAIDs -Continue clear liquid diet 2 days per GI. Plan for repeat EGD later today. Anemia, secondary to GIB MUSHTAQ, iron 15, % sat 3.9, ferritin 5, TIBC 384 hgb dropped from 12.6 to 10.7 overnight. H/H appears stable. -Continue to follow H&H as indicated. Monitor for any recurrence of bleeding. -start on po ferrous sulfate BID, IV Venofer x 1 dose -Transfuse as needed for Hgb <7 or if hemodynamically stable. -continue to monitor on cardiac telemetry Hypertensive No reported history of hypertension -start on Norvasc 5mg daily -Continue to monitor BP and adjust treatment accordingly BLE swelling and tightness, R>L Concern for DVT -obtain STAT doppler BLEs to r/o DVT GRICELDA on CKD: Creatinine 1.92, previously 1.73 on 10/28/2017, suspect secondary to dehydration, BUN 22, much improved status post IVF UA unremarkable -avoid nephrotoxic agents -continue to monitor kidney function as indicated. Dementia: Severe. At baseline. -continue on home Aricept, Namenda, Abilify DVT Prophylaxis: Pharmacologic contraindication secondary to GI Bleed -bilateral SCD/MANJULA hose Discharge Planning Patient not ready for discharge. Per GI, patient to continue on clear liquid diet 2 days followed by repeat EGD later today. Discharge pending GI clearance. Antoinette Casper Mar 26, 2018 11:31
--- NOTE | 2018-03-26 11:39 | RADRPT ---
EXAM DATE/TIME: 03/26/2018 11:16 [facility] COMPARISON: No previous studies available for comparison. INDICATIONS : Bilateral leg pain. MEDICAL HISTORY : Gastroesophageal reflux disease. Dementia. SURGICAL HISTORY : Right hip replacement. Gastric surgery. ENCOUNTER: Initial ACUITY: 1 day PAIN SCORE: 0/10 LOCATION: Bilateral legs. TECHNIQUE: Venous ultrasound of the left and right leg was performed from the inguinal ligament to the proximal calf. Real-time, color Doppler and spectral tracing, compression and augmentation techniques were us ed. FINDINGS: RIGHT LEG: There is normal compressibility of the deep venous system from the inguinal region to the proximal ca lf. No echogenic clot is seen in the lumen of the common femoral, femoral, popliteal, and posterior tibial veins. There is a normal response of the venous system to proximal and distal augmentation an d respiration. LEFT LEG: There is normal compressibility of the deep venous system from the inguinal region to the proximal ca lf. No echogenic clot is seen in the lumen of the common femoral, femoral, popliteal, and posterior tibial veins. There is a normal response of the venous system to proximal and distal augmentation an d respiration. CONCLUSION: The study is negative for deep venous thrombosis bilateral lower extremity. Victoriano Valente MD on March 26, 2018 at 11:36 Board Certified Radiologist. This report was verified electronically.
[2018-03-26] MEDS ORDERED: SUCCINYLCHOLINE CHLORIDE 100 MG/5 ML SYRINGE IV PUSH ONE (12:00)
[2018-03-26] MEDS ORDERED: PHENYLEPH/NS 1000 MCG/10 ML SYR IV ONE (12:00)
[2018-03-26] MEDS ORDERED: hydrALAZINE HCL 20 MG/ML VIAL IV ONE (12:00)
[2018-03-26] MEDS ORDERED: PROPOFOL 200 MG/20 ML AMP IV ONE (12:00)
[2018-03-26] MEDS ORDERED: LIDOCAINE HCL 1% PF 5 ML SYRINGE OTHER ONE (12:00)
[2018-03-26 13:59] LABS: HEMATOCRIT 31.8 % (39.0-51.0); HEMOGLOBIN 10.2 GM/DL (13.0-17.0)
[2018-03-26 14:50] LABS: % SATURATION IRON PROFILE 3.9 % (20-50); FERRITIN 5 NG/ML (26-388); IRON (FE) 15 MCG/DL (65-175); TOTAL IRON BINDING CAPACITY 384 MCG/DL (250-450)
[2018-03-26 14:52] LABS: FOLATE GREATER THAN 20.0 NG/ML (3.1-17.5)
[2018-03-26] MEDS ORDERED: IRON SUCROSE INJ 100 MG in SODIUM CHLORIDE 0.9% INJ 100 ML IV ONE ×2 (16:30→19:00)
[2018-03-26] MEDS ORDERED: DO NOT ADM ANY ANTICOAGULANT DRUGS PRN (17:03)
--- NOTE | 2018-03-26 17:53 | PD.PROCEDR ---
GI Procedure PROCEDURE PERFORMED Upper endoscopy INDICATION FOR PROCEDURE Patient had GI bleed, his stomach was full of food 2 days ago, needs repeat upper endoscopy to evaluate the stomach PROCEDURE: The procedure, risks and benefits were discussed with Mr. Wall and informed consent was obtained. Anesthesia sedated him with Diprivan. He was placed in the left lateral decubitus position. EGD: The Pentax videoscope was introduced through the oropharynx and advanced to the second portion of the duodenum under direct visualization. Retroflexion was performed in the stomach. ESTIMATED BLOOD LOSS: None SPECIMENS REMOVED: None COMPLICATIONS: None IMPRESSION: Severe grade D esophagitis with multiple ulcers, no sign of active bleeding Large hiatal hernia Stomach was empty no abnormality was seen PLAN: Okay to feed patient Continue PPI Follow-up biopsy Lore Lizarraga MD Mar 26, 2018 17:52
[2018-03-26] MEDS ORDERED: cloNIDine HCL 0.1 MG TAB PO PRN (18:30)
[2018-03-26] MEDS ORDERED: MORPHINE SULFATE 4 MG/ML INJ IV PUSH PRN (20:15)
[2018-03-26] MEDS: FERROUS SULFATE 325 MG (65 MG ELEMENTAL IRON) TAB PO SCH (22:04)
[2018-03-26] MEDS: VENLAFAXINE HCL XR 75 MG CAP PO SCH (22:04)
[2018-03-26] MEDS: DONEPEZIL HCL 5 MG TAB PO SCH (22:05)
[2018-03-27] VITALS: PULSE 64
[2018-03-27 03:33] VITALS: BP 122/80; PULSE 83; RESP 16; TEMP 98.2; O2SAT 95
[2018-03-27 03:34] VITALS: PULSE 90
[2018-03-27] MEDS: ARIPiprazole 2 MG TAB PO SCH (05:53)
[2018-03-27 07:20] VITALS: BP 114/81; PULSE 88; RESP 18; TEMP 98.1; O2SAT 94
[2018-03-27] MEDS ORDERED: AMLO5 PO (07:23)
[2018-03-27] MEDS ORDERED: PANT40TA3 PO (07:23)
[2018-03-27] MEDS ORDERED: FERR325T20 PO (07:23)
--- NOTE | 2018-03-27 07:24 | HHI.DCPOC ---
Discharge Care Plan Diagnosis: (1) Esophagitis (2) Anemia (3) GI bleed (4) Hematemesis Goals to Promote Your Health * To prevent worsening of your condition and complications * To maintain your health at the optimal level Directions to Meet Your Goals Take your medications as prescribed Follow your dietary instruction Follow activity as directed Keep your appointments as scheduled Take your immunizations and boosters as scheduled If your symptoms worsen call your PCP, if no PCP go to Urgent Care Center or Emergency Room Smoking is Dangerous to Your Health. Avoid second hand smoke Call the 24-hour hour crisis hotline for domestic abuse at [place] PA-C March 27, 2018 7:24 am
--- NOTE | 2018-03-27 08:21 | HHI.DS ---
Discharge Summary Admission Date Mar 23, 2018 at 9:20 pm Discharge Date: March 27, 2018 Admitting Diagnosis Hematemesis (1) GI bleed ICD Code: K92.2 - Gastrointestinal hemorrhage, unspecified Diagnosis: Principal (2) GRICELDA (acute kidney injury) ICD Code: N17.9 - Acute kidney failure, unspecified Diagnosis: Secondary (3) Dementia ICD Code: F03.90 - Unspecified dementia without behavioral disturbance Diagnosis: Secondary Status: Chronic Procedures 03/24/18 - EGD: anatomy consistent with resection of the EG junction most likely. Severe grade D esophagitis. Clot at an ulcer site in the esophagus injected with 3 cc of epinephrine, and cauterized with gold probe. Stomach was full of food, unable to see the whole mucosa. Duodenum normal. Recc clear liquid , no NSAIDs, Protonix 40 mg daily. Patient would need an endoscopy in 4-5 weeks with at least 2 days of clear liquid to evaluate the stomach and the healing of the esophagitis 03/26/18 - Repeat EGD: Severe grade D esophagitis with multiple ulcers, no sign of active bleeding. Large hiatal hernia. Stomach was empty no abnormality was seen. Recc: Okay to feed patient, Continue PPI, Follow-up biopsy. Brief History - From Admission This is a 68-year-old male with a PMH of HTN, h/o Esophageal/Gastric CA s/p Gastrectomy and Dementia who was sent to the ER from [facility] for hematemesis. Pt unable to provide any history due to severe dementia. Per report, pt vomited bright red emesis earlier this afternoon. Pt without complaints of abdominal pain. On arrival, BP 190/106, HR 82, O2 sat 99% RA, Afebrile. Hemoglobin 12.6, previously 12.2 on 10/28/17. Creatinine 1.92, previously 1.73 on 10/28/17. INR 1.0. CXR with no acute findings. Started on Protonix gtt in ER. CBC/BMP: 03/26/18 1324 03/25/18 0600 Significant Findings Laboratory Tests Test 03/24/18 19:41 03/25/18 06:00 03/25/18 19:55 03/26/18 04:09 Hemoglobin 10.2 GM/DL (13.0-17.0) 10.5 GM/DL (13.0-17.0) 10.0 GM/DL (13.0-17.0) Hematocrit 33.0 % (39.0-51.0) 33.5 % (39.0-51.0) 31.5 % (39.0-51.0) Creatinine 1.47 MG/DL (0.60-1.30) Calcium Level 8.4 MG/DL (8.5-10.1) Chloride Level 110 MEQ/L (98-107) Estimat Glomerular Filtration Rate 48 ML/MIN (>89) Red Blood Count 4.21 MIL/MM3 (4.50-5.90) 3.94 MIL/MM3 (4.50-5.90) Mean Corpuscular Volume 79.6 FL (80.0-100.0) 79.8 FL (80.0-100.0) Mean Corpuscular Hemoglobin 25.1 PG (27.0-34.0) 25.4 PG (27.0-34.0) Mean Corpuscular Hemoglobin Concent 31.5 % (32.0-36.0) 31.8 % (32.0-36.0) Red Cell Distribution Width 17.9 % (11.6-17.2) 17.8 % (11.6-17.2) Monocytes (%) (Auto) 15.2 % (0.0-8.0) 14.9 % (0.0-8.0) Eosinophils (%) (Auto) 5.3 % (0.0-4.0) 6.2 % (0.0-4.0) Basophils (%) (Auto) 2.6 % (0.0-2.0) Test 03/26/18 13:24 Hemoglobin 10.2 GM/DL (13.0-17.0) Hematocrit 31.8 % (39.0-51.0) Iron Level 15 MCG/DL (65-175) Percent Iron Saturation 3.9 % (20-50) Ferritin 5 NG/ML (26-388) Folate GREATER THAN 20.0 NG/ML Imaging Last Impressions Lower Extremity Ultrasound 03/26/18 0000 Signed Impressions: Service Date/Time: Monday, March 26, 2018 11:16 - CONCLUSION: The study is negative for deep venous thrombosis bilateral lower extremity. Victoriano Valente MD Chest X-Ray 03/23/18 1911 Signed Impressions: Service Date/Time: Friday, March 23, 2018 19:16 - CONCLUSION: No acute abnormality demonstrated. Lexx Bolanos MD PE at Discharge GENERAL: Well-nourished, well-developed pleasant demented male patient in [facility]. SKIN: Warm and dry. No rash. HEENT: Normocephalic. Atraumatic. Pupils equal and round. Mucous membranes pink and moist. CARDIOVASCULAR: Regular rate and rhythm. No murmur appreciated. RESPIRATORY: No accessory muscle use. Clear to auscultation. Breath sounds equal bilaterally. GASTROINTESTINAL: Abdomen soft, non-tender, nondistended. Normoactive bowel sounds x4. MUSCULOSKELETAL: No obvious deformities. Extremities without clubbing, cyanosis , or edema. NEUROLOGICAL: Awake and alert. No obvious cranial nerve deficits. Motor grossly within normal limits. Normal speech. Pt update on day of discharge Follow up for hematemesis. The patient reports no further nausea/vomiting or abdominal pain. He tolerated oral intake with soft foods last night. He denies any other medical complaints. He is looking forward to going home. Hospital Course GI Bleed: report of hematemesis from SNF and 2 episodes of hematemesis overnight following admission. Patient given Octreotide 50mcg x 1 in ED. H/o Esophageal/Gastric CA s/p Gastrectomy per records. GI following: s/p EGD by Dr. Lizarraga 03/24 revealing severe grade D esophagitis, clot at the ulcer site in the esophagus and stomach full of food. Recommendations for clear liquid diet 2 days, Protonix 40 mg daily and no NSAIDs. Repeat EGD done 03/26 showed severe grade D esophagitis, large hiatal hernia, stomach empty with no abnormality. Patient cleared for discharge by GI. Given Rx for Protonix 40 mg p.o. daily. Stop NSAIDs. Diet advanced to soft, patient tolerated well. Symptoms resolved. Anemia, secondary to GIB with iron deficiency, iron 15, % sat 3.9, ferritin 5, TIBC 384. Hgb dropped from 12.6 to 10.7 overnight. H/H appears stable. No any recurrence of bleeding. Given IV Venofer x1 and Started on po ferrous sulfate BID. No transfusion needed throughout admission. Hgb stable at 10.7 --> 10.2 -- > 10.5 --> 10.0 --> 10.2. Hypertension: no reported history of hypertension. Started on Norvasc 5mg daily. BP much improved. BLE swelling and tightness, R>L, Concern for DVT: STAT doppler BLEs negative for DVT. GRICELDA on CKD: Creatinine 1.92, previously 1.73 on 10/28/2017, suspect secondary to dehydration, BUN 22, much improved status post IVF. UA unremarkable. Avoid nephrotoxic agents. Renal function improved Cr 1.92 --> 1.60 --> 1.47. Dementia: Severe. At baseline. Continue on home Aricept, Namenda, Abilify DVT Prophylaxis: Pharmacologic contraindication secondary to GI Bleed. Bilateral SCD/MANJULA hose Pt Condition on Discharge: Stable Discharge Disposition: Discharge to SNF Discharge Time: > 30 minutes Discharge Instructions DIET: Follow Instructions for: As Tolerated, No Restrictions, Soft Diet Activities you can perform: Regular-No Restrictions Follow up Referrals: Gastroenterology - 1 Week with Lore Lizarraga MD PCP Follow-up - 1 Week with Prashatn Perez MD New Medications: Amlodipine (Norvasc) 5 Mg Tab 5 MG PO DAILY for Blood Pressure Management, #30 TAB Ferrous Sulfate (Ferosul) 325 Mg (65 Mg Iron) Tablet 325 MG PO BID for Build Red Blood Cells for 30 Days, #60 TAB Pantoprazole (Pantoprazole) 40 Mg Tab 40 MG PO DAILY for esophagitis, #30 TAB Continued Medications: Acetaminophen (Tylenol) 325 Mg Tab 650 MG PO Q4H PRN for PAIN, TAB 0 Refills Kkpavuar-Ahulydtvj-Cgrvzysnict Liq ([place] Liq) 200-200-20 Mg/5 Ml Susp 15 ML PO Q4HR PRN for NAUSEA, ML 0 Refills Take between meals or as directed. Shake well. Do not exceed 120 mL/24 hrs. Aripiprazole (Abilify) 2 Mg Tab 2 MG PO DAILY@0600, #30 TAB 3 Refills Bisacodyl Supp (Bisac-Evac Supp) 10 Mg Supp 10 MG RECTAL DAILY PRN for SEVERE CONSITIPATION, #30 TAB Cholecalciferol (Vitamin D3) 1,000 Unit Cap 1000 UNITS PO DAILY for Nutritional Supplement, #1 BOTTLE 0 Refills Docusate Sodium (Colace) 100 Mg Capsule 100 MG PO BID for Prevent Constipation, #60 CAP 0 Refills Donepezil HCl (Aricept) 10 Mg Tablet 10 MG PO HS for Dementia Guaifenesin/Dextromethorphan (Robitussin Cough-Chest Dm Liq) 100 Mg-5 Mg/5 Ml Liquid 10 ML PO Q6HR PRN for COUGH Magnesium Citrate Liq (Magnesium Citrate Liq) 300 Ml Liq 300 ML PO Q12HR PRN for CONSTIPATION, BOTTLE 0 Refills Memantine (Namenda) 10 Mg Tab 10 MG PO BID for Alzheimer Disease, #60 TAB 3 Refills Multiple Vitamins W/ Minerals (Multi-Vitamin/Minerals) 1 Tab Tab 1 TAB PO DAILY for Nutritional Supplement Polyethylene Glycol 3350 Powder (Miralax Powder) 17 Gm Powd 17 GM PO DAILY for Constipation, #1 CAN 0 Refills Mix and dissolve one measuring capful (17 grams) in 4oz of water or juice. Sennosides (Senna-Tabs) 8.6 Mg Tab 8.6 MG PO BID for Constipation, #30 TAB 0 Refills Venlafaxine ER 24 HR (Venlafaxine ER 24 HR) 150 Mg Cap 150 MG PO HS, #30 CAP 4 Refills Discontinued Medications: Aspirin (Aspirin Low Dose) 81 Mg Chew 81 MG CHEW DAILY for Prevent Blood Clot, #30 TAB 0 Refills Ibuprofen (Ibuprofen) 400 Mg Tab 400 MG PO Q8H PRN for PAIN, TAB 0 Refills [place] PA-C March 27, 2018 08:21 Madiha Kaplan DO March 27, 2018 18:19
[2018-03-27] MEDS ORDERED: amLODIPine BESYLATE 5 MG TAB PO SCH (09:00)
[2018-03-27] MEDS: DOCUSATE SODIUM 50 MG/SENNA 8.6 MG TAB PO SCH (09:00)
[2018-03-27] MEDS: SODIUM CHLORIDE 0.9% FLUSH 10 ML FLUSH IV FLUSH SCH (09:00)
[2018-03-27] MEDS: MEMANTINE HCL 10 MG TAB PO SCH (09:06)
[2018-03-27] MEDS: FERROUS SULFATE 325 MG (65 MG ELEMENTAL IRON) TAB PO SCH (09:06)
[2018-03-27] MEDS: PANTOPRAZOLE SOD 40 MG DELAYED RELEASE TAB PO SCH (09:07)
[2018-03-27 11:11] VITALS: BP 124/87; PULSE 99; RESP 18; TEMP 98.2; O2SAT 95
== END 2018-03-27 14:37 ==
LOC: NEPE 18:20 → NEDA 21:20 → NEPFCDU 21:53 → NEPGCP 03-26 06:15
PROVIDERS: ADMIT Hospitalist; ATTEND Hospitalist
DX: K92.2 Gastrointestinal hemorrhage, unspecified (principal); D50.9 Iron deficiency anemia, unspecified; I12.9 Hypertensive chronic kidney disease with stage 1 through stage 4 chronic kidney disease, or unspecified chronic kidney disease; N18.9 Chronic kidney disease, unspecified; N17.9 Acute kidney failure, unspecified; K20.9 Esophagitis, unspecified; K44.9 Diaphragmatic hernia without obstruction or gangrene; R47.02 Dysphasia; K22.11 Ulcer of esophagus with bleeding; F03.90 Unspecified dementia, unspecified severity, without behavioral disturbance, psychotic disturbance, mood disturbance, and anxiety; Z79.899 Other long term (current) drug therapy; Z85.01 Personal history of malignant neoplasm of esophagus; Z85.028 Personal history of other malignant neoplasm of stomach
CPT/HCPCS: 00731; 43239; 43255; 43270; 71045; 80048; 80053; 81001; 82150; 82607; 82728; 82746; 83540; 83550; 83690; 85014; 85018; 85025; 85610; 86850; 86900; 86901; 88305; 88312; 93970; 96361; 96365; 96366; 96372; 96375; 96376; 97163; 99285; C9113; G0378; G8987; G8988; J0171; J0330; J0360; J1756; J2270; J2354; J2370; J2405; J2550; J7030

== ENCOUNTER 2018-11-18 20:20 | Inpatient (IN) ==
[2018-11-18 21:47] LABS: Baso # (Auto) 0.1 th/mm3 (0.0-0.2); Baso % (Auto) 0.8 % (0.0-2.0); Eos # (Auto) 0.3 th/mm3 (0.0-0.4); Eos % (Auto) 3.5 % (0.0-4.0); Hematocrit 42.1 % (39.0-51.0); Hemoglobin 14.4 gm/dL (13.0-17.0); Lymph # (Auto) 2.6 th/mm3 (1.0-4.8); Lymph % (Auto) 34.3 % (9.0-44.0); Mean Corpuscular HGB Conc 34.1 % (32.0-36.0); Mean Corpuscular Hemoglobin 32.6 pg (27.0-34.0); Mean Corpuscular Volume 95.4 fL (80.0-100.0); Mean Platelet Volume 7.8 fL (7.0-11.0); Mono % (Auto) 12.8 % (0.0-8.0); Neut # (Auto) 3.6 th/mm3 (1.8-7.7); Neut % (Auto) 48.6 % (16.0-70.0); Platelet Count 206 th/mm3 (150-450); Red Blood Count 4.42 mil/mm3 (4.50-5.90); Red Cell Distribution Width 13.8 % (11.6-17.2); White Blood Count 7.5 th/mm3 (4.0-11.0)
[2018-11-18 22:09] LABS: Albumin 3.8 g/dL (3.4-5.0); Anion Gap 9 meq/L (5-15); Aspartate Aminotransferase 24 U/L (15-37); Blood Urea Nitrogen 19 mg/dL (7-18); Calcium 9.2 mg/dL (8.5-10.1); Carbon Dioxide 25.6 meq/L (21.0-32.0); Chloride 105 meq/L (98-107); Glomerular Filtration Rate 33 mL/min (>89); Glucose,Random 93 mg/dL (74-106); Magnesium 2.2 mg/dL (1.5-2.5); Potassium 3.9 meq/L (3.5-5.1); Sodium 140 meq/L (136-145)
[2018-11-18 22:10] LABS: Alanine Aminotransferase 21 U/L (12-78)
[2018-11-18 22:20] LABS: Alkaline Phosphatase 180 U/L (45-117); Total Protein 8.1 g/dL (6.4-8.2)
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
[2018-11-19] MEDS: Levothyroxine 100 MCG Tablet PO SCH (06:31)
[2018-11-19] MEDS ORDERED: Aluminum/Magnesium/Simethacone Susp 30 ML UDC PO PRN (11:19)
[2018-11-19] MEDS ORDERED: Acetaminophen 325 MG Tablet PO PRN (11:19)
[2018-11-19] MEDS ORDERED: guaiFENesin/Codeine Syrup 200 MG/20 MG 10 ML UDC PO PRN (11:22)
[2018-11-19] MEDS ORDERED: Magnesium Citrate Liq 300 ML Bottle PO PRN (11:22)
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
[2018-11-19] MEDS ORDERED: Non-Formulary Drug (Venlafaxine [Venlafaxine] 150 MG) PO SCH (21:00)
[2018-11-19] MEDS ORDERED: Non-Formulary Drug (Donepezil [Donepezil] 10 MG) PO SCH (21:00)
[2018-11-19] MEDS: Ferrous Sulfate 325 MG Tablet PO SCH (21:05)
[2018-11-19] MEDS: Docusate Sodium 100 MG Capsule PO SCH (21:05)
[2018-11-20] MEDS: Levothyroxine 100 MCG Tablet PO SCH (05:12)
[2018-11-20 08:19] LABS: Carbon Dioxide 28.9 meq/L (21.0-32.0); Potassium 4.3 meq/L (3.5-5.1)
[2018-11-20 08:23] LABS: Chol/HDL Ratio 3.82 Ratio; HDL Cholesterol 51.8 mg/dL (40.0-60.0)
[2018-11-20] MEDS: Lisinopril 5 MG Tablet PO SCH (08:42)
[2018-11-20] MEDS: amLODIPine 5 MG Tablet PO SCH (08:42)
[2018-11-20] MEDS: Ferrous Sulfate 325 MG Tablet PO SCH ×2 (08:42→20:42)
[2018-11-20] MEDS: Docusate Sodium 100 MG Capsule PO SCH ×3 (08:42→20:42)
[2018-11-20] MEDS ORDERED: MULTIVITAMIN IRON FOLIC ACID PO SCH (09:00)
[2018-11-20 11:08] LABS: Hemoglobin A1c 5.8 % (4.3-6.0)
[2018-11-20] MEDS ORDERED: Acetaminophen 325 MG Tablet PO PRN (11:08)
[2018-11-20] MEDS ORDERED: Aluminum/Magnesium/Simethacone Susp 30 ML UDC PO PRN (11:08)
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
[2018-11-20 12:25] LABS: Albumin 3.2 g/dL (3.4-5.0); Anion Gap 9 meq/L (5-15); Aspartate Aminotransferase 25 U/L (15-37); Blood Urea Nitrogen 20 mg/dL (7-18); Carbon Dioxide 26.3 meq/L (21.0-32.0); Chloride 107 meq/L (98-107); Glomerular Filtration Rate 36 mL/min (>89); Glucose,Random 79 mg/dL (74-106); Potassium 4.4 meq/L (3.5-5.1); Sodium 142 meq/L (136-145)
[2018-11-20 12:26] LABS: Alanine Aminotransferase 19 U/L (12-78)
[2018-11-20 12:28] LABS: Alkaline Phosphatase 143 U/L (45-117); Total Protein 6.5 g/dL (6.4-8.2)
[2018-11-20] MEDS: QUEtiapine 25 MG Tablet PO SCH ×2 (12:37→17:43)
[2018-11-20] MEDS: Venlafaxine XR 75 MG Capsule PO SCH (20:42)
[2018-11-21] MEDS: Levothyroxine 100 MCG Tablet PO SCH (06:26)
[2018-11-21] MEDS: Ferrous Sulfate 325 MG Tablet PO SCH ×2 (08:54→20:47)
[2018-11-21] MEDS: Docusate Sodium 100 MG Capsule PO SCH ×2 (08:54→20:47)
[2018-11-21] MEDS: Lisinopril 5 MG Tablet PO SCH (08:54)
[2018-11-21] MEDS: amLODIPine 5 MG Tablet PO SCH (08:54)
[2018-11-21] MEDS: QUEtiapine 25 MG Tablet PO SCH ×3 (08:54→17:44)
--- NOTE | 2018-11-21 11:38 | P.CONPSY ---
Provisional Diagnosis Admission Date: November 19, 2018 11:17 [place].: Alzheimer's disease with early onset, dementia with behavioral disturbances History of Present Illness Service: Psychiatry Consult date: 11/21/18 Requesting Physician: Lexx Alexandra Reason for Consult: Wilma blood second opinion Primary Care Provider: Prashant Perez MD Chief Complaint: Abdominal discomfort History of Present Illness: November 21, 2018 Subjective: Patient examined with the nursing staff present at 7:30 AM. Patient is alert but aware only of his name. Patient does not understand his situation and is unable to comment on prior history or events leading to this hospitalization. I have reviewed the Wilma blood formation as well as Dr. Alexandra was history and physical and discuss patient's behavior since arriving on the unit. Patient is demonstrated none of the aggressive behavior noted at the [facility]. He is able to tell me he lives that her fci. He does not appear to recognize the fact that he is in a hospital. PMFSH - History History Provided By: Medical Record - Medical / Surgical Hx Neg / Unobtainable Medical Problems Denied: Yes - Medical History Medical History: Medical History (Last Reviewed 11/21/18 @ 09:04 by Gayla Currie) Chronic renal failure Dementia Depression GERD (gastroesophageal reflux disease) Gastric cancer History of gastrectomy Hypertension - Family History Family History: Family History (Last Reviewed 11/21/18 @ 09:04 by Gayla Currie) Other Family history unobtainable due to patient's condition - Tobacco History Smoking Status: Cognitive impairment - Alcohol History How Often Do You Have a Drink Containing Alcohol: Unable to Obtain - Substance Use History Substance History: Unable to Obtain - Travel History Recent Travel in the [place] Within the Last 8 Weeks: No Recent Travel Out of the Country Within the Last 8 Weeks: No - Immunization History Tetanus Immunization: Unable to Assess Hx Influenza Vaccine This Season: No Medications and Allergies Active Medications: Active Medications Acetaminophen (Tylenol) 650 mg PO Q4H PRN PRN Reason: Pain 1-5 or Temp >101F Al Hydrox/Mg Hydrox/Simethicone (Mag-Al Plus Susp Liq) 30 ml PO Q6H PRN PRN Reason: DYSPEPSIA Al Hydrox/Mg Hydrox/Simethicone (Mag-Al Plus Susp Liq) 15 ml PO Q4HR PRN PRN Reason: Nausea Al Hydroxide/Mg Hydroxide (Milk Of Magnesia Liq) 30 ml PO Q12H PRN PRN Reason: Mild Constipation Amlodipine Besylate (Norvasc) 5 mg PO DAILY [facility] Last Admin: 11/21/18 08:54 Dose: 5 mg Diphenhydramine HCl (Benadryl) 50 mg PO HS PRN PRN Reason: INSOMNIA Last Admin: 11/20/18 20:42 Dose: 50 mg Docusate Sodium (Colace) 100 mg PO BID [facility] Last Admin: 11/21/18 08:54 Dose: 100 mg Donepezil HCl (Aricept) 10 mg PO HS [facility] Last Admin: 11/20/18 20:42 Dose: 10 mg Ferrous Sulfate (Ferosul) 325 mg PO BID [facility] Last Admin: 11/21/18 08:54 Dose: 325 mg Guaifenesin/Codeine Phosphate (Robitussin Ac Liq) 10 ml PO Q6HR PRN PRN Reason: Cough Hydroxyzine HCl (Atarax) 50 mg PO Q6H PRN PRN Reason: ANXIETY Levothyroxine Sodium (Synthroid) 100 mcg PO DAILY@0600 [facility] Last Admin: 11/21/18 06:26 Dose: 100 mcg Lisinopril (Prinivil) 5 mg PO DAILY [facility] Last Admin: 11/21/18 08:54 Dose: 5 mg Magnesium Citrate (Citroma Liq) 30 ml PO Q12HR PRN PRN Reason: Constipation Memantine (Namenda) 10 mg PO BID [facility] Last Admin: 11/21/18 08:54 Dose: 10 mg Multivitamins (Theragran) 1 tab PO DAILY [facility] Last Admin: 11/21/18 08:54 Dose: 1 tab Ondansetron HCl (Zofran Odt) 4 mg PO Q6H PRN PRN Reason: NAUSEA/VOMITING Last Admin: 11/21/18 09:00 Dose: 4 mg Pantoprazole Sodium (Protonix) 40 mg PO DAILY [facility] Last Admin: 11/21/18 08:54 Dose: 40 mg Quetiapine Fumarate (Seroquel) 25 mg PO TID [facility] Last Admin: 11/21/18 08:54 Dose: 25 mg Sennosides (Senokot) 8.6 mg PO BID PRN PRN Reason: Constipation Venlafaxine HCl (Effexor Xr) 150 mg PO HS [facility] Last Admin: 11/20/18 20:42 Dose: 150 mg Vitamin D (Vitamin D3) 1,000 unit PO DAILY [facility] Last Admin: 11/21/18 08:54 Dose: 1,000 unit Allergies Allergy/AdvReac Type Severity Reaction Status Date / Time penicillin G Allergy Unknown Rash Verified 11/18/18 21:06 prochlorperazine Allergy Unknown Rash Verified 11/18/18 21:06 Sulfa (Sulfonamide Allergy Unknown Hives Verified 11/18/18 21:06 Antibiotics) Home Medications Medication Instructions Recorded Confirmed Type amlodipine 5 mg PO DAILY 11/18/18 11/18/18 History donepezil 10 mg PO HS 11/18/18 11/19/18 History lisinopril 5 mg PO DAILY 11/18/18 11/18/18 History memantine 10 mg PO BID 11/18/18 11/18/18 History ondansetron HCl [Zofran] 4 mg PO Q6-8H PRN 11/18/18 11/18/18 History pantoprazole 40 mg PO DAILY 11/18/18 11/18/18 History sennosides 8.6 mg PO BID PRN 11/18/18 11/18/18 History venlafaxine 150 mg PO HS 11/18/18 11/19/18 History acetaminophen [Mapap 650 mg PO Q4H PRN 11/19/18 11/19/18 History (acetaminophen)] alum-mag hydroxide-simeth 15 ml PO Q4HR PRN 11/19/18 11/19/18 History [Almacone] cholecalciferol (vitamin D3) 1,000 unit PO DAILY 11/19/18 11/19/18 History [Vitamin D3] codeine-guaifenesin [Guaifenesin 10 ml PO Q6HR PRN 11/19/18 11/19/18 History AC] docusate sodium [Colace] 100 mg PO BID 11/19/18 11/19/18 History ferrous sulfate 325 mg PO BID 11/19/18 11/19/18 History magnesium citrate 30 ml PO Q12HR PRN 11/19/18 11/19/18 History mvdjbsbgksrt-pnxe-zjqzc acid 1 tab PO DAILY 11/19/18 11/19/18 History [Certavite-Antioxidant] Exam Vital signs: Vital Signs 11/20/18 17:11 11/21/18 05:42 Temperature 98.6 F 98.2 F Pulse Rate 100 H 80 Respiratory Rate 18 21 Blood Pressure 126/81 112/54 L Pulse Oximetry 98 96 Intake & Output 11/20/18 11/21/18 11/21/18 18:59 06:59 18:59 Other: Date of Last Bowel Movement 11/19/18 11/19/18 Mental Status Examination Appearance: Appropriate, Other (Somewhat scruffy) Consciousness: Alert Orientation: Person Motor Activity: Other (Somewhat shuffling gait) Speech: Unremarkable, Hesitant, Slow Language: Perseveration Fund of Knowledge: Poor Attention and Concentration: Inadequate Memory: Impaired Mood: Anxious Affect: Other (Slight increased range and intensity) Thought Process & Associations: Disorganized Thought Content: Preoccupations Hallucination Type: None Delusion Type: None Suicidal Ideation: No Suicidal Plan: No Suicidal Intention: No Homicidal Ideation: No Homicidal Plan: No Homicidal Intention: No Insight: Poor Judgment: Poor Assessment and Plan - Assessment (1) Dementia in other diseases classified elsewhere with behavioral disturbance Code(s): F02.81 - Dementia in other diseases classified elsewhere with behavioral disturbance Status: Acute (2) Alzheimer's disease with early onset Code(s): G30.0 - Alzheimer's disease with early onset; F02.80 - Dementia in other diseases classified elsewhere without behavioral disturbance Status: Acute - Plan Plan: Estimated LOS: [] days At this time patient meets criteria for involuntary psychiatric hospitalization I will do first opinion request second opinion we will also ask for healthcare surrogate and guardian advocate. We will attempt to reach patient's sister to gain that permission. We will continue medications per the med reconciliation. Health is to be fairly short stay and can return to his placement we will also have hospitalist consult with us to his various medical issues 1226 7:30 AM [place] act second opinion supports the first opinion. It is recommended the patient be treated for aggressive behavior on until his condition is stabilized and he is able to be managed on return to the fci. Justification for Continued Inpatient Stay: November 21, 2018 Patient treatment has just been initiated and there is no chance that he would not risk decompensation in a fci. Request Healthcare Surrogate/Guardian Advocate?: Yes
--- NOTE | 2018-11-21 12:12 | P.PNPSY ---
Subjective Remarks: Patient seen in day room with nurse Karla, chart reviewed, patient compliant medication. Hospitalist assessment reviewed and agreed with and appreciated. Patient continues diffusely confused disoriented though no behavioral problems at this point. For now continue treatment. Review of Systems All other systems reviewed negative except as stated in HPI Mental Status Examination Appearance: Appropriate, Other (Somewhat scruffy) Consciousness: Alert Orientation: Person Motor Activity: Other (Somewhat shuffling gait) Speech: Unremarkable, Hesitant, Slow Language: Perseveration Fund of Knowledge: Poor Attention and Concentration: Inadequate Memory: Impaired Mood: Anxious Affect: Other (Slight increased range and intensity) Thought Process & Associations: Disorganized Thought Content: Preoccupations Hallucination Type: None Delusion Type: None Suicidal Ideation: No Suicidal Plan: No Suicidal Intention: No Homicidal Ideation: No Homicidal Plan: No Homicidal Intention: No Insight: Poor Judgment: Poor Assessment and Plan - Assessment (1) Dementia in other diseases classified elsewhere with behavioral disturbance Code(s): F02.81 - Dementia in other diseases classified elsewhere with behavioral disturbance Status: Acute (2) Alzheimer's disease with early onset Code(s): G30.0 - Alzheimer's disease with early onset; F02.80 - Dementia in other diseases classified elsewhere without behavioral disturbance Status: Acute - Plan Plan: Patient continues confused demented though no behavior problems at this time, compliant medication Justification for Continued Inpatient Stay: At this point patient with decompensated placed on a lower level of care Discharge Planning: To be determined Request Healthcare Surrogate/Guardian Advocate?: Yes
--- NOTE | 2018-11-21 18:34 | P.PN ---
Subjective Interval history: Follow up for HTN, GRICELDA, N/V:. pt. seen and examined, sitting in dining room eating dinner. Tolerating well, no n/v today. Was given Zofran before. Taking PO well. BP running low 100s. Demented but cooperative with exam. D/W RN. Difficult to obtain ROS Physical Exam Vital signs: Vital Signs 11/21/18 05:42 11/21/18 17:37 Temperature 98.2 F 98.6 F Pulse Rate 80 101 H Respiratory Rate 21 18 Blood Pressure 112/54 L 102/54 L Pulse Oximetry 96 98 Intake & Output 11/20/18 11/21/18 11/21/18 18:59 06:59 18:59 Other: Date of Last Bowel Movement 11/19/18 11/19/18 Narrative: GENERAL: No apparent distress. SKIN: Warm and dry. HEAD: Atraumatic. Normocephalic. EYES: Pupils equal and round. No scleral icterus. No injection or drainage. ENT: No nasal bleeding or discharge. Mucous membranes pink and moist. NECK: Trachea midline. No JVD. CARDIOVASCULAR: Regular rate and rhythm. No rubs or gallops. RESPIRATORY: No accessory muscle use. Clear to auscultation. Breath sounds equal bilaterally. GASTROINTESTINAL: Abdomen soft, mildly tender in the epigastric area, nondistended. No rebound or guarding. MUSCULOSKELETAL: Extremities without clubbing, cyanosis, or edema. No obvious deformities. NEUROLOGICAL: Awake, demented. No obvious cranial nerve deficits. Motor grossly within normal limits. Five out of 5 muscle strength in the arms and legs. Normal speech. Results - Labs CBC & Chem 7: 11/18/18 21:15 11/20/18 07:10 Laboratory Results - last 24 hr 11/21/18 06:26 Lipase 104 Assessment and Plan - Plan Aggressive behavior S/t dementia. -management per psych. Abdominal discomfort, nausea/vomiting The pt has a history of gastric cancer s/p gastrectomy. Abdomen seems benign on exam. Symptoms seem improved as he is tolerating diet well. -LFTs ok, lipase normal. -continue PPI. -monitor abdominal exam. Imaging if needed. -P.o. Zofran as needed. -tolerating diet well, no episodes of N/V Acute on chronic renal failure Creatinine seems to be mildly above baseline. -Encourage p.o. hydration and avoid nephrotoxins. -Follow BMP as needed. HTN -BP 100s, will adjust Lisinopril and decrease to 2.5 mg po daily -continue Norvasc 5 mg po daily Dementia -continue with current meds. PPx: Ambulation Will sign off for now, reconsult if needed. Code Status: DNR Discussed Condition With: RN, pt Discharge Planning: Per psych team
[2018-11-21] MEDS: Venlafaxine XR 75 MG Capsule PO SCH (20:47)
[2018-11-22 05:54] VITALS: RESP 17
[2018-11-22] MEDS: Levothyroxine 100 MCG Tablet PO SCH (06:29)
[2018-11-22] MEDS: Docusate Sodium 100 MG Capsule PO SCH ×2 (08:40→21:26)
[2018-11-22] MEDS: amLODIPine 5 MG Tablet PO SCH (08:43)
[2018-11-22] MEDS: Ferrous Sulfate 325 MG Tablet PO SCH ×2 (08:44→21:26)
[2018-11-22] MEDS: Lisinopril 5 MG Tablet PO SCH (08:44)
[2018-11-22] MEDS: QUEtiapine 25 MG Tablet PO SCH ×3 (08:52→17:59)
--- NOTE | 2018-11-22 14:48 | P.PNPSY ---
Subjective Remarks: Patient is seen today with nursing wound, chart reviewed, patient compliant medications. Patient remains confused childlike in his behaviors there is this speech impediment perhaps related to his CPAP. He states he wants to go home. We need to verify if he is able to return to his prior placement. He is otherwise compliant medication and no significant behavioral problems Review of Systems All other systems reviewed negative except as stated in HPI Mental Status Examination Appearance: Appropriate, Other (Somewhat scruffy) Consciousness: Alert Orientation: Person Motor Activity: Other (Somewhat shuffling gait) Speech: Unremarkable, Hesitant, Slow Language: Perseveration Fund of Knowledge: Poor Attention and Concentration: Inadequate Memory: Impaired Mood: Anxious (Somewhat calmer) Affect: Other (Decreased range and intensity) Thought Process & Associations: Disorganized Thought Content: Preoccupations Hallucination Type: None Delusion Type: None Suicidal Ideation: No Suicidal Plan: No Suicidal Intention: No Homicidal Ideation: No Homicidal Plan: No Homicidal Intention: No Insight: Poor Judgment: Poor Assessment and Plan - Assessment (1) Dementia in other diseases classified elsewhere with behavioral disturbance Code(s): F02.81 - Dementia in other diseases classified elsewhere with behavioral disturbance Status: Acute (2) Alzheimer's disease with early onset Code(s): G30.0 - Alzheimer's disease with early onset; F02.80 - Dementia in other diseases classified elsewhere without behavioral disturbance Status: Acute - Plan Plan: Patient continues demented though no behavioral problems, he is making statements that he wished to return to his home. We need to verify placement Justification for Continued Inpatient Stay: At this time patient with decompensated placed in a lower level of care Discharge Planning: To be determined perhaps back to his prior placement Request Healthcare Surrogate/Guardian Advocate?: Yes
[2018-11-22] MEDS: Venlafaxine XR 75 MG Capsule PO SCH (21:26)
[2018-11-23 06:24] VITALS: BP 107/52; PULSE 84; TEMP 98.9; O2SAT 95
[2018-11-23] MEDS: Levothyroxine 100 MCG Tablet PO SCH (06:32)
[2018-11-23] MEDS: Lisinopril 5 MG Tablet PO SCH (08:23)
[2018-11-23] MEDS: Docusate Sodium 100 MG Capsule PO SCH (08:23)
[2018-11-23] MEDS: QUEtiapine 25 MG Tablet PO SCH (08:23)
[2018-11-23] MEDS: Ferrous Sulfate 325 MG Tablet PO SCH (08:24)
[2018-11-23] MEDS: amLODIPine 5 MG Tablet PO SCH (08:24)
--- NOTE | 2018-11-23 11:48 | P.PNPSY ---
Subjective Remarks: Patient seen in his room with nurse Christel, chart reviewed, patient compliant medication. Patient has been no behavioral problems on the unit he is calm cooperative pleasant with diffusely confused. There is some perseveration with his statements basically saying I want to go home. It appears patient has made maximum benefit of this hospitalization. Though we need to verify with [facility] and [facility] if they will accept the patient back to their facility. Until then we will continue to monitor patient Review of Systems All other systems reviewed negative except as stated in HPI Mental Status Examination Appearance: Appropriate, Other (Somewhat scruffy) Consciousness: Alert Orientation: Person Motor Activity: Other (Somewhat shuffling gait) Speech: Unremarkable, Hesitant, Slow Language: Perseveration Fund of Knowledge: Poor Attention and Concentration: Inadequate Memory: Impaired Mood: Anxious (Somewhat calmer) Affect: Other (Decreased range and intensity) Thought Process & Associations: Disorganized Thought Content: Preoccupations Hallucination Type: None Delusion Type: None Suicidal Ideation: No Suicidal Plan: No Suicidal Intention: No Homicidal Ideation: No Homicidal Plan: No Homicidal Intention: No Insight: Poor Judgment: Poor Assessment and Plan - Assessment (1) Dementia in other diseases classified elsewhere with behavioral disturbance Code(s): F02.81 - Dementia in other diseases classified elsewhere with behavioral disturbance Status: Acute (2) Alzheimer's disease with early onset Code(s): G30.0 - Alzheimer's disease with early onset; F02.80 - Dementia in other diseases classified elsewhere without behavioral disturbance Status: Acute - Plan Plan: Patient is showing no behavioral problems at this time is compliant with medications remains somewhat confused but overall is calm and cooperative. To be continue to await word from [facility] and [facility] about allowing patient to return to their facility Justification for Continued Inpatient Stay: At this time patient would decompensate if not placed in an appropriate level of care Discharge Planning: To be determined Request Healthcare Surrogate/Guardian Advocate?: Yes
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
== END 2018-11-23 15:00 | DRG 57 ==
LOC: NEPD 20:20 → NEDA 11-19 11:17 → H260 11-19 11:49
PROVIDERS: ADMIT Psychiatry & Neurology Psychiatry; ATTEND Psychiatry & Neurology Psychiatry
CPT/HCPCS: 80048; 80053; 80061; 80307; 83036; 83690; 83735; 84443; 85025; 90791; 97161; 99285; Q0163